=== PATIENT | male | born 1940 | race Caucasian/White ===

== ENCOUNTER → 2016-09-25 | Outpatient (CLI) | payer MEDICARE ==
--- NOTE | 2016-09-25 18:35 | CT ---
EXAMINATION TYPE: CT chest wo con DATE OF EXAM: 09/25/2016 5:55 PM COMPARISON: NONE HISTORY: cough and shortness of breath CT DLP: 261 mGycm Automated exposure control for dose reduction was used. FINDINGS: Multiple axial sections were obtained of the chest in the prone and supine position. There is subpleural interstitial density at the posterior lung bases. This is a mild interstitial inf iltrate. There is no evidence of a pulmonary mass. There is no pleural effusion. Heart size is normal . There is atherosclerotic vascular calcification. There is no pericardial effusion. There is no medi astinal adenopathy. There are no hilar masses. There are a few prominent bronchi at the lung bases. IMPRESSION: SUBPLEURAL INTERSTITIAL TYPE INFILTRATES PREDOMINANTLY AT THE LUNG BASES WITH MINIMAL BRONCHIECTASIS. THIS IS A PATTERN CONSISTENT WITH A MILD FORM OF IDIOPATHIC PULMONARY FIBROSIS. NO EVIDENCE OF ANY S IGNIFICANT PULMONARY EMPHYSEMA. ATHEROSCLEROTIC VASCULAR DISEASE.
--- NOTE | 2016-10-08 22:11 | CONS ---
DATE OF CONSULTATION: The patient is a 76-year-old gentleman who was referred by Dr. Jeremy hernández for diagnostic lung biopsy for interstitial lung disease. The patient has a history of progressive shortness of breath. He had chest x-rays that were abnormal and had a CT scan performed at [facility] on September 25. This demonstrated interstitial type infiltrates subpleural bilaterally or at the lower lobes of the upper lobes. He was admitted with bronchiectasis. No significant emphysematous change or peripheral vascular disease was noted. The patient is referred for possible diagnostic biopsy. Previous medical history includes chronic renal failure for which he is on peritoneal dialysis and includes hypotension for which he is on amiodarone. It includes hypothyroidism, for which he is on Synthroid, includes secondary hyperparathyroidism for which he is on Renvela. The patient also has a history of normal pressure hydrocephalus and has a intracranial shunt. He just recently had this checked and it appears to be working properly. Plan will be to perform an elective diagnostic lung biopsy on the left lung, which the patient will need to be suspended at least one night in the hospital. The indications for the procedure, risks versus benefits, possible complications were outlined. The usual perioperative course was discussed. The patient asked appropriate questions and these were answered to the best of my ability. It was made clear that this is simply a diagnostic procedure and that the procedure itself would not improve his lung disease. It was also made clear that sometimes the diagnosis we obtain does not have any known treatment. Our hope is that we will find a treatable disease. Either way it is important to know what the patient's diagnosis is. The patient understood all of these discussions as I say asked appropriate questions and these were answered to the best of my ability. The patient would like the procedure performed as soon as possible. The plan will be to proceed with the diagnostic lung biopsy, probably sometime next week.
== END | disposition home or self-care (01) ==
LOC: RADCTMAIN 17:20
PROVIDERS: ATTEND Internal Medicine Critical Care Medicine
DX: J47.9 Bronchiectasis, uncomplicated (principal); R91.8 Other nonspecific abnormal finding of lung field
CPT/HCPCS: 71250

== ENCOUNTER → 2016-10-11 | Outpatient (CLI) | payer MEDICARE ==
[2016-10-11 09:31] LABS: Potassium 4.9 mmol/L (3.5-5.1)
[2016-10-11 10:37] LABS: CH 32.8; CHCM 31.1; HCT 33.8 % (39.0-53.0); HGB 10.7 gm/dL (13.0-17.5); Hypochromasia Slight; MCH 33.6 pg (25.0-35.0); MCHC 31.6 g/dL (31.0-37.0); MCV 106.1 fL (80.0-100.0); Macrocytosis Moderate; Mean Platelet Volume 7.3; RBC 3.19 m/uL (4.30-5.90); WBC 10.2 k/uL (3.8-10.6); WBC (Perox) 11.27
[2016-10-11 14:49] LABS: Add Differential Manual Differential
[2016-10-11 14:52] LABS: Manual Review Performed; Nucleated Red Blood Cells 0 /100 WBC (0-0); Total Cells Counted 100
== END | disposition home or self-care (01) ==
LOC: LABPAT 08:45
PROVIDERS: ATTEND Thoracic Surgery (Cardiothoracic Vascular Surgery)
DX: Z01.810 Encounter for preprocedural cardiovascular examination (principal); J84.9 Interstitial pulmonary disease, unspecified
CPT/HCPCS: 80051; 82565; 84520; 85025

== ENCOUNTER 2016-10-15 06:12 | Inpatient (IN) | payer MEDICARE ==
[2016-10-12 14:29] VITALS: BMI 30.7
[~2016-10-15 06:12] MED LIST: FAMOTIDINE 20 MG/2 ML VIAL IV PRN; HYDROmorphone 1 MG/ML 1 ML SYRINGE IVP PRN; LACTATED RINGERS 1,000 ML IV SCH; LIDOCAINE 1% 20 ML VIAL (10MG/ML) FOR IV START INTRADERMA PRN; MIDAZOLAM 2 MG/2 ML VIAL IV PRN; ONDANSETRON 4 MG/2 ML VIAL IVP PRN; Pre Op ABX Message 1 EACH MISC MISCELLANE ONE
[2016-10-15] MEDS ORDERED: SODIUM CHLORIDE 0.9% 1,000 ML IV ONE (07:01)
[2016-10-15 07:08] LABS: CH 33.2; CHCM 31.8; HDW 2.42; HGB 10.6 gm/dL (13.0-17.5); MCH 33.6 pg (25.0-35.0); MCHC 32.1 g/dL (31.0-37.0); MCV 104.8 fL (80.0-100.0); Macrocytosis Moderate; Mean Platelet Volume 7.5; RBC 3.15 m/uL (4.30-5.90); RDW 14.4 % (11.5-15.5); WBC 13.6 k/uL (3.8-10.6)
[2016-10-15 07:23] LABS: Potassium 4.2 mmol/L (3.5-5.1)
[2016-10-15] MEDS ORDERED: LIDOCAINE 1% INJ 10MG/ML (20 ML MDV) ONE (08:00)
[2016-10-15] MEDS ORDERED: MIDAZOLAM 2 MG/2 ML VIAL ONE (08:00)
[2016-10-15] MEDS ORDERED: NEOSTIGMINE 1 MG/ML 10 ML VIAL ONE (08:00)
[2016-10-15] MEDS ORDERED: CISATRACURIUM 2 MG/ML 5 ML VIAL IV ONE (08:00)
[2016-10-15] MEDS ORDERED: GLYCOPYRROLATE 0.2 MG/ML 2 ML VIAL ONE (08:00)
[2016-10-15] MEDS ORDERED: ePHEDrine 50 MG/ML 1 ML AMP ONE (08:00)
[2016-10-15] MEDS ORDERED: HYDROmorphone (PF) 1 MG/ML ONE (08:00)
[2016-10-15] MEDS ORDERED: PROPOFOL 10 MG/ML 20 ML VIAL IV ONE (08:00)
[2016-10-15] MEDS ORDERED: ceFAZolin 1,000 MG VIAL ONE (08:00)
[2016-10-15] MEDS ORDERED: fentaNYL (PF) 50 MCG/ML 2 ML AMP ONE (08:00)
[2016-10-15] MEDS ORDERED: SODIUM CHLORIDE 0.9% 100 ML BAG ONE (08:00)
[2016-10-15] MEDS ORDERED: SODIUM CHLORIDE 0.9% 100 ML with ceFAZolin 2,000 MG IV ONE ×2 (08:25)
[2016-10-15] MEDS ORDERED: BUPIVACAINE (PF) 0.5% 30 ML VIAL SQ ONE ×2 (08:36)
[2016-10-15] MEDS ORDERED: ONDANSETRON 4 MG/2 ML VIAL IVP PRN (09:05)
[2016-10-15] MEDS ORDERED: IPRATROPIUM-ALBUTEROL 3 ML NEB IH PRN (09:05)
--- NOTE | 2016-10-15 09:32 | XR ---
EXAMINATION TYPE: XR chest 1V DATE OF EXAM: 10/15/2016 9:26 AM COMPARISON: NONE HISTORY: 09/25/2016 TECHNIQUE: Single frontal view of the chest is obtained. FINDINGS: Catheter is extending overlying the chest distal tip overlies the lower heart border exact location uncertain. Portion of the catheter extends cephalad. There is a left-sided chest tube with soft tissue emphysema. Bilateral areas of consolidation and sma ll effusion noted. Atherosclerotic change of the aorta noted. IMPRESSION: 1. Bilateral foraminal trainee and small effusion #2 chest tube seen in position with subcutaneous em physema.
--- NOTE | 2016-10-15 10:27 | P.OP ---
Date of Procedure: 10/15/16 Preoperative Diagnosis: Bilateral pulmonary infiltrates, interstitial lung disease Postoperative Diagnosis: Bilateral pulmonary infiltrates, interstitial lung disease Procedure(s) Performed: Thoracoscopic left lung biopsy Anesthesia: JTA Surgeon: Edouard Stewart Estimated Blood Loss (ml): 5 IV fluids (ml): 500 Urine output (ml): 50 Pathology: other (Biopsies of left upper and left lower lobe both sent for pathology and culture including routine acid-fast and fungal cultures) Condition: stable Disposition: PACU Indications for Procedure: Bilateral pulmonary infiltrates, interstitial lung disease Operative Findings: Grossly the pulmonary parenchyma appeared normal with minimal anthracotic pigment Description of Procedure: The patient was brought to the operating room placed supine on the operating table anesthetized and intubated with a double-lumen endotracheal tube. Tube was positioned with fiberoptic bronchoscopy and secured. No endobronchial abnormalities were noted. The patient was turned in the right lateral decubitus position and the left chest sterilely prepped and draped. 3 one-inch incisions were made in the left chest and the video thoracoscope introduced through one. The left lung was deflated and examined. 2 generous wedge biopsies were obtained one of the upper lobe at the level of the fissure and the other of the lower lobe at the level of the diaphragm. Multiple firings of medium Endo ADRIAN stapler were used to create the wedge biopsies. Wedge biopsies were individually placed in an Endo catch bags and brought through the chest wall onto the field. Specimens were divided on the back table and appropriately sent for pathology and culture. Following completion of the biopsy a 28-Persian chest tube was placed through separate stab incision and positioned posterior apically.'s were performed at the level of the incisions with half percent Marcaine. Chest tube was secured with an 0 Ethibond suture. The lung was reexpanded under thoracoscopic visualization and then the thoracoscope were removed. The incisions were closed with layers of Vicryl suture. Steri-Strips and dry sterile dressings were applied. The patient was turned supine and extubated and transferred to recovery room in stable condition.
[2016-10-15] MEDS: DEXTROSE 5%-0.45% NACL 1,000 ML IV SCH ×2 (12:17→20:13)
[2016-10-15] MEDS ORDERED: HYDROcodone/APAP 5-325MG 1 EACH TAB PO PRN (12:26)
[2016-10-15] MEDS: HYDROcodone/APAP 5-325MG 1 EACH TAB PO PRN ×2 (12:47→18:18)
--- NOTE | 2016-10-15 13:06 | P.CNPUL ---
History of Present Illness Consult date: 10/15/16 Reason for consult: other Chief complaint: Difficulty breathing, interstitial lung disease History of present illness: This is a 76-year-old gentleman who I sent to see Dr. Stewart for a VATS biopsy. He came in with me without a diagnosis of difficulty breathing. We discovered interstitial lung disease. He may have pulmonary fibrosis or UIP. Anyway the patient is doing well well postsurgically. I did tell him that he will take a couple days to get the biopsy results. Typically with a due here as a repeat in the next 71-year-old [facility] for final pathologic diagnosis. Anyway the patient is doing well may go home tomorrow. Not on any supplemental oxygen. Complaining of pain only. His daughter and are in the room with him. He does have a history of renal fire for which he gets dialysis 3 times a week and also suffers from hypothyroidism. His ALLERGIES include penicillin and sulfa. His home medications include vitamins Renvela Zofran midodrine level thyroxine and EPOGEN. Review of Systems A 12 point review of system was positive for shortness breath on exertion and dry nonproductive cough. These of the symptoms that initially brought him to me. I he was sent for a VATS lung biopsy which was done today. Past Medical History Past Medical History: Renal Disease Additional Past Medical History / Comment(s): hypotension History of Any Multi-Drug Resistant Organisms: None Reported Past Surgical History: Hernia Repair, Orthopedic Surgery Additional Past Surgical History / Comment(s): vp data shunt. cataract Past Anesthesia/Blood Transfusion Reactions: Previous Problems w/ Anesthesia Additional Past Anesthesia/Blood Transfusion Reaction / Comment(s): states stopped breathing during an arthroscopy yrs. ago but has had surgeries since w/ no problems Past Psychological History: No Psychological Hx Reported Smoking Status: Never smoker Past Alcohol Use History: None Reported Past Drug Use History: None Reported - Past Family History Son(s) Family Medical History: Pulmonary Embolus Medications and Allergies Home Medications Medication Instructions Recorded Confirmed Type Levothyroxine Sodium [Synthroid] 75 mcg PO DAILY 08/06/16 10/15/16 History Midodrine HCl [ProAmatine] 10 mg PO BID 08/06/16 10/15/16 History Sevelamer [Renvela] 2,400 mg PO AC-TID 08/06/16 10/15/16 History Vit B Cplx #11/FA/C/Biot/Zn Ox 1 tab PO DAILY 08/06/16 10/15/16 History [Dialyvite with Zinc Tablet] Epoetin Dl [Epogen] 2,000 unit IJ SA 10/12/16 10/15/16 History Midodrine [ProAmatine] 5 mg PO 1200 10/12/16 10/15/16 History Allergies Allergy/AdvReac Type Severity Reaction Status Date / Time Penicillins Allergy Unknown Verified 10/12/16 11:01 Sulfa (Sulfonamide Allergy Unknown Verified 10/12/16 11:01 Antibiotics) Physical Exam Osteopathic Statement: *. No significant issues noted on an osteopathic structural exam other than those noted in the History and Physical/Consult. Vitals: Vital Signs Temp Pulse Pulse Resp BP BP BP 10/15/16 12:00 97.6 F 81 18 135/65 10/15/16 11:30 82 16 134/70 10/15/16 11:00 84 16 144/78 10/15/16 10:30 79 19 147/74 10/15/16 10:09 75 18 148/70 10/15/16 09:54 91 16 146/72 10/15/16 09:39 75 16 136/68 10/15/16 09:24 88 16 139/69 10/15/16 09:09 98.0 F 84 10 L 112/66 10/15/16 07:27 122/67 120/65 10/15/16 06:27 97.6 F 86 18 168/77 Pulse Ox 10/15/16 12:00 96 10/15/16 11:30 98 10/15/16 11:00 98 10/15/16 10:30 100 10/15/16 10:09 98 10/15/16 09:54 100 10/15/16 09:39 100 10/15/16 09:24 100 10/15/16 09:09 100 10/15/16 07:27 10/15/16 06:27 97 Intake and Output 10/14/16 10/15/16 10/15/16 22:59 06:59 14:59 Intake Total 50 1000 Output Total 20 Balance 50 980 Intake: IV 50 600 Intake, IV Titration 400 Amount Sodium Chloride 0.9% 100 400 ml As IV .STK-MED ONE with ceFAZolin 2,000 mg Rx#:[id number] Output: Estimated Blood Loss 20 Other: Voiding Method Urinal No acute distress, oriented 3. Not requiring any supplemental oxygen. He looks well. HEENT examination is grossly unremarkable. Supple. Full range of motion. Cardiovascular examination reveals regular rhythm rate. S1-S2 normal. Lungs reveal some bibasilar crackles. Abdomen soft. Extremities are intact. Results - Laboratory Findings CBC and BMP: 10/15/16 06:45 10/15/16 06:45 Abnormal lab findings: Abnormal Labs 10/15/16 10/15/16 06:45 06:45 WBC 13.6 H RBC 3.15 L Hgb 10.6 L Hct 33.0 L MCV 104.8 H Carbon Dioxide 19 L - Diagnostic Findings Chest x-ray: image reviewed Assessment and Plan (1) Interstitial lung disease Status: Acute Plan: The patient may go home tomorrow. We'll follow. We'll make sure that we review the path with him when it comes back from [facility]. Additional recommendations suggestions are forthcoming. Time with Patient: Less than 30
[2016-10-15] MEDS: IPRATROPIUM-ALBUTEROL 3 ML NEB IH SCH ×3 (15:59→19:45)
[2016-10-15] MEDS ORDERED: ceFAZolin 2 GM in SODIUM CHLORIDE 0.9% 100 ML IVPB SCH (16:00)
[2016-10-15] MEDS: MIDODRINE 5 MG TAB PO SCH (17:12)
[2016-10-15] MEDS: SEVELAMER 800 MG TAB PO SCH (17:12)
[2016-10-15] MEDS ORDERED: BENZOCAINE/MENTHOL LOZENG 1 EACH LOZENGE MUCOUS MEM PRN (17:58)
[2016-10-15] MEDS: HEPARIN SODIUM,PORCINE 5,000 UNIT/ML 1 ML VIAL SQ SCH (20:09)
[2016-10-15] MEDS: DIALYSIS DEX INTRAPERIT SCH (20:22)
[2016-10-15] MEDS ORDERED: IPRATROPIUM-ALBUTEROL 3 ML NEB INHALATION PRN (20:41)
[2016-10-16] MEDS: DIALYSIS DEX INTRAPERIT SCH ×2 (03:00)
[2016-10-16] MEDS: HYDROcodone/APAP 5-325MG 1 EACH TAB PO PRN (04:49)
[2016-10-16] MEDS: MIDODRINE 5 MG TAB PO SCH (06:21)
[2016-10-16] MEDS ORDERED: LEVOTHYROXINE 75 MCG TAB PO SCH (06:30)
[2016-10-16] MEDS: SEVELAMER 800 MG TAB PO SCH (07:05)
[2016-10-16 07:18] LABS: Basophils % (A) 0 %; CH 33.1; CHCM 31.1; Eosinophils # (A) 0.2 k/uL (0-0.7); Eosinophils % (A) 2 %; HCT 30.3 % (39.0-53.0); HDW 2.46; HGB 9.3 gm/dL (13.0-17.5); Hypochromasia Slight; Luc # (Auto) 0.11; Luc % (Auto) 1; Lymphocytes # (A) 1.3 k/uL (1.0-4.8); Lymphocytes % (A) 13 %; MCHC 30.8 g/dL (31.0-37.0); MCV 107.2 fL (80.0-100.0); Macrocytosis Moderate; Monocytes # (A) 0.8 k/uL (0-1.0); Monocytes % (A) 7 %; Neutrophils # (A) 8.1 k/uL (1.3-7.7); Neutrophils % (A) 77 %; RBC 2.83 m/uL (4.30-5.90); RDW 14.7 % (11.5-15.5); WBC 10.5 k/uL (3.8-10.6); WBC (Perox) 10.04
--- NOTE | 2016-10-16 07:26 | P.PN ---
Subjective Principal diagnosis: Bilateral pulmonary infiltrates, interstitial lung disease. POD #1 thorascopic left lung biopsy. Patient currently sitting up in bed, no apparent distress, states pain is controlled with ordered Narco, at bedside, all questions answered. Objective - Vital Signs Vital signs: Vital Signs Temp 97.4 F L 10/16/16 03:57 Pulse 80 10/16/16 03:57 Resp 20 10/16/16 03:57 BP 120/69 10/16/16 03:57 Pulse Ox 93 L 10/16/16 03:57 Intake & Output 10/15/16 10/16/16 10/16/16 18:59 06:59 18:59 Intake Total 2014 2094 Output Total 110 330 Balance 1905 1765 Weight 91 kg Intake: IV 600 1675 Dextrose 5%-0.45% NaCl 1, 675 000 ml @ 75 mls/hr IV . [id number] LOTUS Rx#:[id number] Sodium Chloride 0.9% 1, 1000 000 ml As IV .STK-MED ONE Rx#:[id number] Intake, IV Titration 1075 Amount Dextrose 5%-0.45% NaCl 1, 675 000 ml @ 75 mls/hr IV . [id number] LOTUS Rx#:[id number] Sodium Chloride 0.9% 100 400 ml As IV .STK-MED ONE with ceFAZolin 2,000 mg Rx#:[id number] Oral 340 420 Output: Chest Tube Drainage 90 130 Left Mid-Axillary Chest 90 130 Urine 200 Estimated Blood Loss 20 Other: Voiding Method Urinal Self-Catheterization # Voids 1 - Constitutional General appearance: Present: cooperative, no acute distress - Respiratory Details: Lungs sounds diminished, respirations even, nonlabored. Remains on room air. Left pleural chest tube with 220 mL serosanguineous output since surgery, chest tube connected to -20 cm wall suction. Able to achieve 1250 mL on his incentive spirometer. - Cardiovascular Details: S1, S2 present. Regular rate and rhythm. Sinus rhythm to sinus bradycardia on telemetry. No peripheral edema present. - Gastrointestinal Gastrointestinal Comment(s): Abdomen soft, nontender, nondistended. Peritoneal dialysis catheter present. Active bowel sounds 4 quadrants. - Genitourinary Genitourinary Comment(s): Patient voids per urinal. - Musculoskeletal Musculoskeletal: Present: gait normal - Psychiatric Psychiatric: Present: A&O x's 3, appropriate affect, intact judgment & insight - Allied health notes Allied health notes reviewed: nursing - Labs CBC & Chem 7: 10/16/16 06:29 10/15/16 06:45 Labs: Abnormal Lab Results - Last 24 Hours (Table) 10/15/16 10/16/16 Range/Units 06:45 06:29 RBC 2.83 L (4.30-5.90) m/uL Hgb 9.3 L (13.0-17.5) gm/dL Hct 30.3 L (39.0-53.0) % MCV 107.2 H (80.0-100.0) fL MCHC 30.8 L (31.0-37.0) g/dL Neutrophils # 8.1 H (1.3-7.7) k/uL Carbon Dioxide 19 L (22-30) mmol/L Microbiology - Last 24 Hours (Table) 10/15/16 08:53 Gram Stain - Preliminary Lung - Left Upper Lobe Tissue Culture - Preliminary 10/15/16 08:53 Gram Stain - Preliminary Lung - Left Lower Lobe Tissue Culture - Preliminary 10/15/16 08:53 Anaerobic Culture - Preliminary Tissue - Left Lower Lobe 10/15/16 08:53 Acid Fast Bacilli Culture - Preliminary Tissue - Left Upper Lobe 10/15/16 08:53 Fungal Culture - Preliminary Tissue - Left Upper Lobe 10/15/16 08:53 Acid Fast Bacilli Culture - Preliminary Lung - Left Lower Lobe 10/15/16 08:53 Fungal Culture - Preliminary Lung - Left Lower Lobe 10/15/16 08:53 Anaerobic Culture - Preliminary Tissue - Left Upper Lobe Assessment and Plan (1) Interstitial lung disease Status: Acute (2) Status post thoracostomy tube placement Status: Acute Plan: 1. Will DC left pleural chest tube. 2. Will obtain chest x-ray post tube removal. 3. Pain control. 4. Will discharge home this afternoon as long as patient is stable. Time with Patient: Greater than 30
[2016-10-16] MEDS ORDERED: LACTULOSE 20 GM/30 ML CUP PO PRN (07:30)
[2016-10-16 07:32] LABS: Calcium 8.5 mg/dL (8.4-10.2); Potassium 4.4 mmol/L (3.5-5.1)
[2016-10-16 08:17] VITALS: BP 120/64; RESP 18; TEMP 97.1
[2016-10-16] MEDS: IPRATROPIUM-ALBUTEROL 3 ML NEB IH SCH (08:37)
[2016-10-16] MEDS: HEPARIN SODIUM,PORCINE 5,000 UNIT/ML 1 ML VIAL SQ SCH (08:38)
[2016-10-16 08:41] VITALS: PULSE 80
--- NOTE | 2016-10-16 08:44 | XR ---
EXAMINATION TYPE: XR chest 1V DATE OF EXAM: 10/16/2016 7:30 AM COMPARISON: Prior chest x-ray 15 October 2016 HISTORY: Postop lung biopsy TECHNIQUE: Single frontal view of the chest is obtained. FINDINGS: Lucency present within the subcutaneous tissues of the left neck, there may be soft tissue swelling. Left-sided catheter courses along the left neck and shows a subclavian course with the dis winter tip coursing towards the right atrium in close proximity to the tricuspid valve level. Left-sided chest tube is in place. There is subcutaneous emphysema over the left chest. No evident pneumothorax or sizable effusion. Lung volume is low on the right. IMPRESSION: Similar findings to prior exam. Central venous catheter as described. Postop changes.
--- NOTE | 2016-10-16 10:19 | XR ---
EXAMINATION TYPE: XR chest 1V DATE OF EXAM: 10/16/2016 9:50 AM COMPARISON: Prior chest x-ray October at earlier time HISTORY: Status post chest tube removal TECHNIQUE: Single frontal view of the chest is obtained. FINDINGS: There has been interval removal of the left-sided chest tube. No sizable pneumothorax. No other significant interval change. IMPRESSION: Interval chest tube removal.
[2016-10-16] MEDS ORDERED: MIDODRINE 5 MG TAB PO SCH (12:00)
[2016-10-16] MEDS ORDERED: DIALYSIS DEX INTRAPERIT SCH (21:00)
--- NOTE | 2016-10-17 08:35 | P.DS ---
Providers Date of admission: 10/15/16 06:12 Attending physician: Edouard Stewart Consults: 10/15/16 11:06 Consult Physician Routine Consulting Provider: Partha Luna Reason/Comments: post lung biopsy, known to you Do you want consulting provider notified?: Already Contacted 10/15/16 11:08 Consult Physician Routine Consulting Provider: Tez Robison Consult Reason/Comments: chronic kidney disease on PD Do you want consulting provider notified?: Yes Primary care physician: Francois Ayers Yaneth - Discharge Diagnosis(es) (1) Interstitial lung disease Status: Acute (2) Status post thoracostomy tube placement Status: Acute Hospital Course: FINAL DIAGNOSIS: 1.[Interstitial lung disease] 2.[Chronic renal failure receiving peritoneal dialysis] 3.[Hypotension] 4.[Hypothyroidism] 5.[Secondary hyperparathyroidism] 6.[Normal pressure hydrocephalus, status post intracranial shunt] PRINCIPAL PROCEDURE: 1.[Thoracoscopic left lung biopsy] HISTORY OF PRESENT ILLNESS: [This 76-year-old gentleman was referred by Dr. Luna for diagnostic lung biopsy for interstitial lung disease. She had had a peak history of progressive shortness of breath. He had abnormal chest x-rays, subsequently had a CAT scan performed in September which demonstrated interstitial type infiltrates subpleural bilaterally. The indications for the procedure, risks versus benefits and possible complications were explained in detail to the patient and his . They verbalized understanding and consented to proceed with surgery.] HOSPITAL COURSE:[The patient was brought in as an outpatient and brought to the preop area. He was then brought into the operating room, prepped appropriately , intubated, and wedge biopsies were obtained using a thorascopic approach. A 28-[place]ican chest tube was placed and secured. Following the procedure he was extubated, taken to the postanesthesia recovery unit, recovered appropriately, and transferred to [address] [place] [address] for follow-up postop care. On POD #1 the patient's chest tube was removed, follow-up chest x-ray was obtained, which demonstrated no pneumothorax. The patient was discharged home with his .] COMPLICATIONS: [None] CONSULTATIONS: 1.[Dr. Luna for pulmonology] 2.[Dr. Robison for nephrology] DISCHARGE INSTRUCTIONS: 1. No lifting, pushing, or pulling more than 10 pounds for 4 weeks. The physician will advise of any restriction changes. 2. Continue pain control per as needed orders. 3. Continue with incentive spirometry until otherwise directed by the physician. 4. Must shower daily starting Oct 18 using liquid antibacterial soap. 5. Please remove chest dressing on [Oct 18 after 9:30 AM] with routine incision care thereafter. Patient Condition at Discharge: Stable Plan - Discharge Summary New Discharge Prescriptions: HYDROcodone/APAP 5-325MG [[place] 5-325] 1 - 2 tab PO Q4HR PRN #30 tab PRN Reason: Moderate Pain Discharge Medication List Levothyroxine Sodium [Synthroid] 75 mcg PO DAILY 08/06/16 [History] Midodrine HCl [ProAmatine] 10 mg PO BID 08/06/16 [History] Ondansetron Odt [Zofran ODT] 4 mg PO Q8HR PRN #10 tab 08/06/16 [Rx] Sevelamer [Renvela] 2,400 mg PO AC-TID 08/06/16 [History] Vit B Cplx #11/FA/C/Biot/Zn Ox [Dialyvite with Zinc Tablet] 1 tab PO DAILY 08/06 [History] Epoetin Dl [Epogen] 2,000 unit IJ SA 10/12/16 [History] Midodrine [ProAmatine] 5 mg PO 1200 10/12/16 [History] HYDROcodone/APAP 5-325MG [[place] 5-325] 1 - 2 tab PO Q4HR PRN #30 tab 10/16/16 [ Rx] Lactulose [Cephulac] 20 gm PO DAILY PRN #0 ml 10/16/16 [Rx] Follow up Appointment(s)/Referral(s): Edouard Stewart MD [STAFF PHYSICIAN] - 10/29/16 2:00 pm Linda Flood DO [Doctor of Osteopathic Medicine] - As Needed Partha Luna DO [Doctor of Osteopathic Medicine] - 10/30/16 1:00 pm Activity/Diet/Wound Care/Special Instructions: 1. No lifting, pushing, or pulling more than 10 pounds for 4 weeks. The physician will advise of any restriction changes. 2. Continue pain control per as needed orders. 3. Continue with incentive spirometry until otherwise directed by the physician. 4. Must shower daily starting Feb 16 using liquid antibacterial soap. 5. Please remove chest dressing on [Oct 18 after 9:30 AM] with routine incision care thereafter. Discharge Disposition: HOME SELF-CARE
== END 2016-10-16 11:31 | disposition home or self-care (01) | DRG 167 ==
LOC: 2ORMAIN 06:12 → 6SEL 11:17
PROVIDERS: ADMIT Thoracic Surgery (Cardiothoracic Vascular Surgery); ATTEND Thoracic Surgery (Cardiothoracic Vascular Surgery)
PROC: 0W9B40Z Drainage of Left Pleural Cavity with Drainage Device, Percutaneous Endoscopic Approach (ICD-10-PCS; 2016-10-15)
PROC: 0BB84ZX Excision of Left Upper Lobe Bronchus, Percutaneous Endoscopic Approach, Diagnostic (ICD-10-PCS; 2016-10-15)
PROC: 0BBJ4ZX Excision of Left Lower Lung Lobe, Percutaneous Endoscopic Approach, Diagnostic (ICD-10-PCS; principal; 2016-10-15 08:00)
DX: J84.9 Interstitial pulmonary disease, unspecified (principal); G91.2 (Idiopathic) normal pressure hydrocephalus; I95.9 Hypotension, unspecified; N25.81 Secondary hyperparathyroidism of renal origin; E03.9 Hypothyroidism, unspecified; I25.10 Atherosclerotic heart disease of native coronary artery without angina pectoris; Z98.2 Presence of cerebrospinal fluid drainage device; Z98.49 Cataract extraction status, unspecified eye; N18.9 Chronic kidney disease, unspecified; Z88.0 Allergy status to penicillin; Z88.2 Allergy status to sulfonamides; Z99.2 Dependence on renal dialysis; Z79.899 Other long term (current) drug therapy
CPT/HCPCS: 71010; 80048; 80051; 81001; 85025; 85027; 87070; 87075; 87102; 87116; 87205; 87206; 88307; 94640

== ENCOUNTER 2016-10-20 16:54 | Inpatient (IN) | payer MEDICARE ==
[2016-10-20 17:29] LABS: Basophils % (A) 0 %; CH 34.1; CHCM 32.4; Eosinophils # (A) 0.1 k/uL (0-0.7); Eosinophils % (A) 1 %; HCT 33.2 % (39.0-53.0); HDW 2.52; HGB 10.4 gm/dL (13.0-17.5); Luc # (Auto) 0.38; Luc % (Auto) 2; Lymphocytes # (A) 0.7 k/uL (1.0-4.8); Lymphocytes % (A) 4 %; MCHC 31.2 g/dL (31.0-37.0); MCV 105.9 fL (80.0-100.0); Macrocytosis Moderate; Mean Platelet Volume 7.9; Monocytes # (A) 1.8 k/uL (0-1.0); Monocytes % (A) 9 %; Neutrophils # (A) 16.1 k/uL (1.3-7.7); Neutrophils % (A) 84 %; RBC 3.14 m/uL (4.30-5.90); RDW 14.3 % (11.5-15.5); WBC (Perox) 19.79
--- NOTE | 2016-10-20 17:34 | ED ---
Weakness HPI - General Chief complaint: Weakness Stated complaint: weakness Time Seen by Provider: 10/20/16 17:16 Source: patient Mode of arrival: EMS Limitations: altered mental status (There appears to be some delirium) - History of Present Illness Initial comments: This patient is 76-year-old man who presents after he developed generalized weakness and then was unable to stand or ambulate at his home. Patient had been in the hospital last week to have a lung biopsy to determine the etiology of what appeared to be interstitial lung disease. The patient states that he was feeling about his usual self when he was discharged on Saturday. Over the following day he noticed that he was having the onset of some fatigue and weakness. This Progressively worse until tonight he was not able to stand or walk at home. The patient also noted that he was feeling hot and cold over the past day. He has also had a number of watery bowel movements starting this afternoon. MD Complaint: generalized weakness, lack of energy -: days(s) Location: generalized Severity: severe Consistency: constant Improves with: none Worsens with: none Context: recent surgery Associated Symptoms: fever/chills, other (Diarrhea) - Related Data Home Medications Medication Instructions Recorded Confirmed Levothyroxine Sodium [Synthroid] 75 mcg PO DAILY 08/06/16 10/20/16 Midodrine HCl [ProAmatine] 10 mg PO BID 08/06/16 10/20/16 Sevelamer [Renvela] 2,400 mg PO AC-TID 08/06/16 10/20/16 Vit B Cplx #11/FA/C/Biot/Zn Ox 1 tab PO DAILY 08/06/16 10/20/16 [Dialyvite with Zinc Tablet] Epoetin Dl [Epogen] 2,000 unit IM SA 10/12/16 10/20/16 Midodrine [ProAmatine] 5 mg PO DAILY@1200 10/12/16 10/20/16 HYDROcodone/APAP 5-325MG [[place] 1 tab PO Q4HR PRN 10/20/16 10/20/16 5-325] Previous Rx's Medication Instructions Recorded Ondansetron Odt [Zofran ODT] 4 mg PO Q8HR PRN #10 tab 08/06/16 Lactulose [Cephulac] 20 gm PO DAILY PRN #0 ml 10/16/16 Allergies Allergy/AdvReac Type Severity Reaction Status Date / Time Penicillins Allergy Rash/Hives Verified 10/20/16 17:43 Sulfa (Sulfonamide Allergy Rash/Hives Verified 10/20/16 17:43 Antibiotics) Review of Systems ROS Statement: Those systems with pertinent positive or pertinent negative responses have been documented in the HPI. ROS Other: All systems not noted in ROS Statement are negative. Limitations: ROS unobtainable due to patients medical condition (Patient appears to be mildly delirious) Constitutional: Reports: fever, chills ENT: Reports: throat pain Respiratory: Reports: cough, dyspnea. Denies: wheezes, hemoptysis, stridor Cardiovascular: Reports: dyspnea on exertion. Denies: chest pain, edema, syncope Gastrointestinal: Denies: abdominal pain, nausea, vomiting Genitourinary: Denies: dysuria, hematuria Musculoskeletal: Denies: back pain Skin: Denies: rash Neurological: Denies: headache, weakness, numbness Past Medical History Past Medical History: Renal Disease Additional Past Medical History / Comment(s): hypotension, pulmonary fibrosis History of Any Multi-Drug Resistant Organisms: None Reported Past Surgical History: Hernia Repair, Orthopedic Surgery Additional Past Surgical History / Comment(s): vp revenue cycle shunt. cataract Past Anesthesia/Blood Transfusion Reactions: Previous Problems w/ Anesthesia Additional Past Anesthesia/Blood Transfusion Reaction / Comment(s): states stopped breathing during an arthroscopy yrs. ago but has had surgeries since w/ no problems Past Psychological History: No Psychological Hx Reported Smoking Status: Never smoker Past Alcohol Use History: None Reported Past Drug Use History: None Reported - Past Family History Son(s) Family Medical History: Pulmonary Embolus General Exam Limitations: no limitations General appearance: alert, in distress (Patient does appear to be mildly tachypneic at my exam) Head exam: Present: atraumatic, normocephalic Eye exam: Present: normal appearance. Absent: scleral icterus, conjunctival injection ENT exam: Present: mucous membranes dry Neck exam: Present: normal inspection Respiratory exam: Present: rales. Absent: respiratory distress, wheezes, rhonchi, stridor, decreased breath sounds Cardiovascular Exam: Present: tachycardia, normal heart sounds. Absent: regular rate, normal rhythm, bradycardia, systolic murmur, diastolic murmur, rubs, gallop GI/Abdominal exam: Present: soft, normal bowel sounds, other (There is a peritoneal dialysis catheter present in the left lower quadrant. No erythema or warmth. No tenderness. No signs of peritonitis.). Absent: distended, tenderness, guarding, rebound, mass, pulsatile mass, hernia Extremities exam: Present: normal inspection, normal capillary refill. Absent: pedal edema, calf tenderness Back exam: Present: normal inspection. Absent: CVA tenderness (R), CVA tenderness (L) Neurological exam: Present: alert Skin exam: Present: warm, dry, intact, normal color. Absent: rash Course Vital Signs 10/20/16 10/20/16 10/20/16 16:55 17:55 19:22 Temperature 102.1 F H 100.0 F H Pulse Rate 111 H 97 Respiratory 20 16 16 Rate Blood Pressure 111/59 85/50 O2 Sat by Pulse 92 L 95 Oximetry Medical Decision Making - Medical Decision Making This patient is a 76-year-old man who presents with fever of the workup is positive for influenza. The patient will be covered with Tamiflu. The lactic acid is elevated and he received fluid bolus and will have repeat lactic acid performed. Case discussed with Dr. Palomo who is admitting for Dr. Wolfe. Case discussed with Dr. Luna, who also follows the patient for his interstitial lung disease. Given the possibility of sepsis the patient is currently with additional antibiotics to rule out other source, pending his blood, urine, and dialysis fluid cultures. - Lab Data Result diagrams: 10/20/16 17:15 10/20/16 17:15 Lab Results 10/20/16 10/20/16 10/20/16 Range/Units 16:10 17:15 17:15 WBC 19.0 H (3.8-10.6) k/uL RBC 3.14 L (4.30-5.90) m/uL Hgb 10.4 L (13.0-17.5) gm/dL Hct 33.2 L (39.0-53.0) % MCV 105.9 H (80.0-100.0) fL MCH 33.0 (25.0-35.0) pg MCHC 31.2 (31.0-37.0) g/dL RDW 14.3 (11.5-15.5) % Plt Count 443 (150-450) k/uL Neutrophils % 84 % Lymphocytes % 4 % Monocytes % 9 % Eosinophils % 1 % Basophils % 0 % Neutrophils # 16.1 H (1.3-7.7) k/uL Lymphocytes # 0.7 L (1.0-4.8) k/uL Monocytes # 1.8 H (0-1.0) k/uL Eosinophils # 0.1 (0-0.7) k/uL Basophils # 0.0 (0-0.2) k/uL Macrocytosis Moderate PT 11.6 (9.0-12.0) sec INR 1.2 (<1.1) APTT 21.4 L (22.0-30.0) sec Sodium (137-145) mmol/L Potassium (3.5-5.1) mmol/L Chloride (98-107) mmol/L Carbon Dioxide (22-30) mmol/L Anion Gap mmol/L BUN (9-20) mg/dL Creatinine (0.66-1.25) mg/dL Est GFR (MDRD) Af Amer (>60 ml/min/1.73 sqM) Est GFR (MDRD) Non-Af (>60 ml/min/1.73 sqM) Glucose (74-99) mg/dL Plasma Lactic Acid Edilberto (0.7-2.0) mmol/L Calcium (8.4-10.2) mg/dL Total Bilirubin (0.2-1.3) mg/dL AST (17-59) U/L ALT (21-72) U/L Alkaline Phosphatase (38-126) U/L Total Creatine Kinase 40 L (55-170) U/L CK-MB (CK-2) 0.5 (0.0-2.4) ng/mL CK-MB (CK-2) Rel Index 1.3 Troponin I 0.019 (0.000-0.034) ng/mL Total Protein (6.3-8.2) g/dL Albumin (3.5-5.0) g/dL Cortisol ug/dL Influenza Type A RNA (Not Detectd) Influenza Type B (PCR) (Not Detectd) 10/20/16 10/20/16 10/20/16 Range/Units 17:15 17:15 18:00 WBC (3.8-10.6) k/uL RBC (4.30-5.90) m/uL Hgb (13.0-17.5) gm/dL Hct (39.0-53.0) % MCV (80.0-100.0) fL MCH (25.0-35.0) pg MCHC (31.0-37.0) g/dL RDW (11.5-15.5) % Plt Count (150-450) k/uL Neutrophils % % Lymphocytes % % Monocytes % % Eosinophils % % Basophils % % Neutrophils # (1.3-7.7) k/uL Lymphocytes # (1.0-4.8) k/uL Monocytes # (0-1.0) k/uL Eosinophils # (0-0.7) k/uL Basophils # (0-0.2) k/uL Macrocytosis PT (9.0-12.0) sec INR (<1.1) APTT (22.0-30.0) sec Sodium 142 (137-145) mmol/L Potassium 4.2 (3.5-5.1) mmol/L Chloride 104 (98-107) mmol/L Carbon Dioxide 18 L (22-30) mmol/L Anion Gap 20 mmol/L BUN 42 H (9-20) mg/dL Creatinine 8.46 H* (0.66-1.25) mg/dL Est GFR (MDRD) Af Amer 7 (>60 ml/min/1.73 sqM) Est GFR (MDRD) Non-Af 6 (>60 ml/min/1.73 sqM) Glucose 139 H (74-99) mg/dL Plasma Lactic Acid Edilberto 4.5 H* (0.7-2.0) mmol/L Calcium 8.1 L (8.4-10.2) mg/dL Total Bilirubin 0.3 (0.2-1.3) mg/dL AST 38 (17-59) U/L ALT 22 (21-72) U/L Alkaline Phosphatase 133 H (38-126) U/L Total Creatine Kinase (55-170) U/L CK-MB (CK-2) (0.0-2.4) ng/mL CK-MB (CK-2) Rel Index Troponin I (0.000-0.034) ng/mL Total Protein 5.5 L (6.3-8.2) g/dL Albumin 2.7 L (3.5-5.0) g/dL Cortisol 54 ug/dL Influenza Type A RNA Not Detected (Not Detectd) Influenza Type B (PCR) Detected A (Not Detectd) Disposition Clinical Impression: Fever, Influenza, Sepsis, Interstitial lung disease, Chronic renal failure Disposition: ADMITTED IP TO THIS HOSP Condition: Serious
[2016-10-20 17:39] LABS: Calcium 8.1 mg/dL (8.4-10.2); Potassium 4.2 mmol/L (3.5-5.1); Total Bilirubin 0.3 mg/dL (0.2-1.3); Total Protein 5.5 g/dL (6.3-8.2)
[2016-10-20 18:06] LABS: Creatine Kinase MB 0.5 ng/mL (0.0-2.4); Troponin I 0.019 ng/mL (0.000-0.034)
--- NOTE | 2016-10-20 18:17 | XR ---
EXAMINATION TYPE: XR chest 1V portable DATE OF EXAM: 10/20/2016 5:39 PM COMPARISON: Prior chest x-ray October HISTORY: Fever, abnormal chest x-ray TECHNIQUE: Single frontal view of the chest is obtained. FINDINGS: There is no focal air space opacity, pleural effusion, or pneumothorax seen. The cardiac silhouette size is within normal limits. Left-sided central venous catheter stable. Lucency over the left upper chest and left side has largely resolved. The osseous structures are intact. IMPRESSION: No significant interval changes.
[2016-10-20] MEDS ORDERED: IV VANCOMYCIN PER PHARMACY 1 EACH MISC MISCELLANE PRN (18:23)
[2016-10-20] MEDS ORDERED: VANCOMYCIN 1,750 MG in SODIUM CHLORIDE 0.9% 250 ML IVPB ONE (18:45)
[2016-10-20 18:48] LABS: INR 1.2 (<1.1); Prothrombin Time 11.6 sec (9.0-12.0)
[2016-10-20 18:55] LABS: Partial Thromboplastin Time 21.4 sec (22.0-30.0)
[2016-10-20] MEDS ORDERED: ONDANSETRON ODT 4 MG TAB PO PRN (18:57)
[2016-10-20] MEDS ORDERED: LACTULOSE 20 GM/30 ML CUP PO PRN (18:57)
[2016-10-20] MEDS ORDERED: HYDROcodone/APAP 5-325MG 1 EACH TAB PO PRN (18:57)
[2016-10-20] MEDS: SODIUM CHLORIDE 0.9% 500 ML IV SCH ×3 (19:14→19:54)
[2016-10-20] MEDS ORDERED: DARBEPOETIN ALFA 25 MCG/0.42 ML SYRINGE SQ SCH (20:00)
[2016-10-20 20:09] LABS: Glucose,Whole Blood 143 mg/dL (75-99)
[2016-10-20 21:22] VITALS: BMI 32.8
[2016-10-20 21:42] LABS: Appearance,Urine Clear (Clear); Bilirubin,Urine Negative (Negative); Glucose,Urine (UA) 3+ (Negative); Ketones,Urine Negative (Negative); Leukocyte Esterase,Urine Negative (Negative); Nitrite,Urine Negative (Negative); PH, Urine 7.5 (5.0-8.0); Particle Count 3240; Protein,Urine 2+ (Negative); Squamous Epithelial Cell,Urine 2 /hpf (0-4); UA Billing (MACRO vs. MICRO) MICRO; Urobilinogen,Urine <2.0 mg/dL (<2.0); WBC,Urine <1 /hpf (0-5)
[2016-10-20] MEDS: OSELTAMIVIR 60 MG/10 ML ORAL SYRINGE PO SCH (21:54)
[2016-10-20] MEDS ORDERED: ACETAMINOPHEN TAB 325 MG TAB PO PRN (22:26)
[2016-10-20] MEDS ORDERED: NALOXONE 0.4 MG/ML 1 ML VIAL IV PRN (22:26)
[2016-10-21] MEDS: VANCOMYCIN ORAL SOLUTION 250 MG/5 ML BOTTLE PO SCH ×4 (00:07→17:05)
[2016-10-21] MEDS: CHERRY FLAVOR 60 ML BOTTLE PO SCH ×4 (00:07→17:05)
[2016-10-21] MEDS: SODIUM CHLORIDE 0.9% 1,000 ML IV SCH ×2 (00:07→13:12)
[2016-10-21 00:34] LABS: Creatine Kinase MB 0.8 ng/mL (0.0-2.4)
[2016-10-21 00:37] LABS: Troponin I 0.064 ng/mL (0.000-0.034)
[2016-10-21 05:16] LABS: Basophils % (A) 0 %; CH 32.6; CHCM 30.4; Eosinophils # (A) 0.1 k/uL (0-0.7); Eosinophils % (A) 1 %; HCT 28.4 % (39.0-53.0); HDW 2.51; Hypochromasia Moderate; Luc # (Auto) 0.39; Luc % (Auto) 2; Lymphocytes # (A) 1.5 k/uL (1.0-4.8); Lymphocytes % (A) 9 %; MCH 33.5 pg (25.0-35.0); MCHC 31.1 g/dL (31.0-37.0); MCV 107.7 fL (80.0-100.0); Macrocytosis Moderate; Mean Platelet Volume 6.9; Monocytes # (A) 1.1 k/uL (0-1.0); Monocytes % (A) 6 %; Neutrophils # (A) 13.9 k/uL (1.3-7.7); Neutrophils % (A) 82 %; RBC 2.64 m/uL (4.30-5.90); RDW 14.1 % (11.5-15.5); WBC (Perox) 18.65
[2016-10-21 05:26] LABS: HGB 8.8 gm/dL (13.0-17.5)
[2016-10-21 05:27] LABS: Calcium 7.3 mg/dL (8.4-10.2); Magnesium 1.9 mg/dL (1.6-2.3); Phosphorous 6.7 mg/dL (2.5-4.5); Potassium 3.8 mmol/L (3.5-5.1)
[2016-10-21] MEDS: LEVOTHYROXINE 75 MCG TAB PO SCH (05:34)
[2016-10-21] MEDS ORDERED: Potassium Replacement Protocol 1 EACH MISC MISCELLANE PRN (05:50)
[2016-10-21] MEDS ORDERED: Magnesium Replacement Protocol 1 EACH MISC MISCELLANE PRN (05:51)
[2016-10-21 05:54] LABS: Troponin I 0.1 ng/mL (0.000-0.034)
[2016-10-21] MEDS: POTASSIUM CHLORIDE 10 MEQ, LIDOCAINE 2% INJ 10 MG in SODIUM CHLORIDE 0.9% 100 ML IV SCH ×2 (06:41→08:55)
[2016-10-21] MEDS: MAGNESIUM SULFATE-D5W PMX 1 GM in DEXTROSE/WATER 1 100ML.BAG IVPB SCH ×2 (06:41→08:57)
[2016-10-21] MEDS: SEVELAMER 800 MG TAB PO SCH ×3 (09:08→17:05)
[2016-10-21] MEDS: PANTOPRAZOLE 40 MG TABLET PO SCH (09:08)
[2016-10-21] MEDS: MIDODRINE 5 MG TAB PO SCH ×3 (09:09→17:07)
[2016-10-21] MEDS: HEPARIN SODIUM,PORCINE 5,000 UNIT/ML 1 ML VIAL IV SCH ×2 (09:09→18:06)
[2016-10-21] MEDS: B COMPLEX-VIT C-VIT E-ZINC 1 EACH TAB PO SCH (09:10)
[2016-10-21] MEDS: ZINC GLUCONATE 50 MG TAB PO SCH (09:10)
--- NOTE | 2016-10-21 09:21 | P.NPCON ---
History of Present Illness - Reason for Consult Consult date: 10/21/16 end stage renal disease - Chief Complaint ESRD on CAPD admitted with diarrhea - History of Present Illness This is 76-year-old male known to us with ESRD, he is on cycler peritoneal dialysis, for about 2yrs. He was admitted with diarrhea for 24 hours prior to admission and feeling fatigued and tired and somewhat confused. Stool is positive for C. diff. He denies any bloody stools, nausea vomiting fever chills. He also has a diagnosis of influenza pneumonia although his symptoms are rather unchanged she has chronic cough for several years and had the pulmonary fibrosis diagnosed based on the recent lung biopsy. He says his cough is not any different. Past Medical History Past Medical History: Renal Disease Additional Past Medical History / Comment(s): hypotension, pulmonary fibrosis History of Any Multi-Drug Resistant Organisms: None Reported Past Surgical History: Hernia Repair, Orthopedic Surgery Additional Past Surgical History / Comment(s): vp patient shunt. cataract Past Anesthesia/Blood Transfusion Reactions: Previous Problems w/ Anesthesia Additional Past Anesthesia/Blood Transfusion Reaction / Comment(s): states stopped breathing during an arthroscopy yrs. ago but has had surgeries since w/ no problems Past Psychological History: No Psychological Hx Reported Smoking Status: Never smoker Past Alcohol Use History: None Reported Past Drug Use History: None Reported - Past Family History Son(s) Family Medical History: Pulmonary Embolus Medications and Allergies Home Medications Medication Instructions Recorded Confirmed Type Levothyroxine Sodium [Synthroid] 75 mcg PO DAILY 08/06/16 10/20/16 History Midodrine HCl [ProAmatine] 10 mg PO BID 08/06/16 10/20/16 History Sevelamer [Renvela] 2,400 mg PO AC-TID 08/06/16 10/20/16 History Vit B Cplx #11/FA/C/Biot/Zn Ox 1 tab PO DAILY 08/06/16 10/20/16 History [Dialyvite with Zinc Tablet] Epoetin Dl [Epogen] 2,000 unit IM SA 10/12/16 10/20/16 History Midodrine [ProAmatine] 5 mg PO DAILY@1200 10/12/16 10/20/16 History HYDROcodone/APAP 5-325MG [[place] 1 tab PO Q4HR PRN 10/20/16 10/20/16 History 5-325] Allergies Allergy/AdvReac Type Severity Reaction Status Date / Time Penicillins Allergy Rash/Hives Verified 10/20/16 17:43 Sulfa (Sulfonamide Allergy Rash/Hives Verified 10/20/16 17:43 Antibiotics) Physical Exam Vitals: Vital Signs Temp Pulse Resp BP Pulse Ox 10/21/16 07:59 99 10/21/16 07:00 75 10 L 89/53 99 10/21/16 06:00 77 14 83/54 98 10/21/16 05:30 75 16 106/54 98 10/21/16 05:00 77 18 106/54 91 L 10/21/16 04:30 79 16 87/51 98 10/21/16 04:00 97.9 F 90 15 87/51 98 10/21/16 03:30 78 15 97/56 97 10/21/16 03:00 75 17 97/56 96 10/21/16 02:30 81 16 83/49 10/21/16 02:00 82 16 83/49 91 L 10/21/16 01:00 85 16 82/47 94 L 10/21/16 00:30 87 18 95/53 96 10/21/16 00:00 100 F H 87 17 117/63 98 10/20/16 23:00 87 14 114/54 100 10/20/16 22:00 91 17 107/56 99 10/20/16 21:30 94 22 127/82 98 10/20/16 21:20 93 19 104/55 99 10/20/16 21:10 92 32 H 104/55 99 10/20/16 21:00 89 15 104/55 98 10/20/16 20:50 145 H 23 106/69 96 10/20/16 20:45 17 10/20/16 20:40 163 H 22 106/69 94 L 10/20/16 20:30 98.8 F 141 H 15 106/69 88 L 10/20/16 20:20 90 20 106/69 97 10/20/16 20:12 88 10/20/16 19:22 100.0 F H 97 16 85/50 95 Intake and Output 10/20/16 10/21/16 10/21/16 22:59 06:59 14:59 Intake Total 2725 675 Output Total 152 211 Balance 5003 464 Intake: IV 2725 675 Sodium Chloride 0.9% 1, 675 000 ml @ 75 mls/hr IV . [id number] [facility] Rx#:[id number] Sodium Chloride 0.9% 500 2575 ml @ 1000 mls/hr IV Q35M [facility] Rx#:[id number] Vancomycin 1,750 mg In 150 Sodium Chloride 0.9% 250 ml @ 125 mls/hr IVPB ONCE ONE Rx#:[id number] Output: Urine 152 211 Other: Voiding Method Indwelling Catheter Indwelling Catheter Weight 98 kg 91.4 kg On examination is awake alert oriented. HEENT exam no JVP neck is supple no facial asymmetry Pupils are equal and reactive Lungs are clear to auscultation fair air entry bilaterally no dullness percussion. Heart sounds are unremarkable for any murmur rub gallop. Abdomen soft nontender PD catheter is coming out but the length of the catheter is rather small but this is how it was placed originally. Extremity exam was no edema Warm to touch Neurologically awake alert oriented no asterixis. Results - Lab Results Most recent lab results Calcium 7.3 mg/dL (8.4-10.2) L 10/21/16 04:56 Phosphorus 6.7 mg/dL (2.5-4.5) H 10/21/16 04:56 Magnesium 1.9 mg/dL (1.6-2.3) 10/21/16 04:56 10/21/16 04:56 10/21/16 04:56 Assessment and Plan Plan: Impression. 1. ESRD on cycler peritoneal dialysis for about 2 years using 5 exchanges of 1.5%, cycle volume unclear patient is unable to recall and the was unable to tell us. We will his seems 2500 mL. 2. Admitted with C. diff colitis, PCR is pending but EIA is positive. 3. Recent admission 10/15/2016 for lung biopsy which shows usual interstitial pneumonitis. Patient has chronic cough for several years 4. Influenza 5. 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 6. Mild degree of non-gap acidosis with a gap of 13 and a bicarb of 19 secondary to his CK D 7. Hyperphosphatemia, phosphorus is 6.7 on Renvela at home 3 tablets 3 times a day 8. Mild hypocalcemia calcium is 7.3 and albumin is not available. Recommendation. 1. Antibiotics for the C. diff as being given, vancomycin by mouth 2. Check iron saturation, 3. Aranesp 40 Micg SQ a week 4. Renvela 3 3 times a day with dietary restriction of 1 g phosphorus 5. Maintain with CAPD 2500 mL 4 exchanges 1.5%. 6. DC White catheter
[2016-10-21] MEDS ORDERED: DARBEPOETIN ALFA 40 MCG/0.4 ML SYRINGE SQ SCH (09:30)
[2016-10-21 10:02] LABS: % Iron Saturation 6.7 % (20-50)
--- NOTE | 2016-10-21 11:11 | P.CNPUL ---
History of Present Illness Consult date: 10/21/16 Chief complaint: Diarrhea, delirium, and weakness. History of present illness: This is a 76-year-old male who just recently underwent a VATS lung biopsy by Dr. Stewart for interstitial lung disease. The results are not yet back. The patient was apparently seen in the emergency room with complaints of weakness. Seen there by one of the ER physicians. The patient apparently came into the hospital with complaints of diarrhea weakness fever and delirium. The family states he was basically unable to walk and just are very much out of it. It sounds like this could be dehydration with delirium and/or sepsis. Apparently also he tested positive for influenza although have not seen those results as yet. He is feeling much better now. When I talked to the ER doctor yesterday, I thought the patient could be safely managed on the floor. For some reason the patient ended up in the ICU. I'm not been able to figure out why. Again currently is doing very well. He is getting appointment 9 IV at 75 mL an hour. He's got not getting any supplemental oxygen. Review of Systems A 12 point review of system is positive for fever and delirium diarrhea and weakness. Most of those complaints have improved. The patient feels much better now. The rest of the 12 point review of system is negative. Past Medical History Past Medical History: Renal Disease Additional Past Medical History / Comment(s): hypotension, pulmonary fibrosis History of Any Multi-Drug Resistant Organisms: None Reported Past Surgical History: Hernia Repair, Orthopedic Surgery Additional Past Surgical History / Comment(s): vp product management shunt. cataract Past Anesthesia/Blood Transfusion Reactions: Previous Problems w/ Anesthesia Additional Past Anesthesia/Blood Transfusion Reaction / Comment(s): states stopped breathing during an arthroscopy yrs. ago but has had surgeries since w/ no problems Past Psychological History: No Psychological Hx Reported Smoking Status: Never smoker Past Alcohol Use History: None Reported Past Drug Use History: None Reported - Past Family History Son(s) Family Medical History: Pulmonary Embolus Medications and Allergies Home Medications Medication Instructions Recorded Confirmed Type Levothyroxine Sodium [Synthroid] 75 mcg PO DAILY 08/06/16 10/20/16 History Midodrine HCl [ProAmatine] 10 mg PO BID 08/06/16 10/20/16 History Sevelamer [Renvela] 2,400 mg PO AC-TID 08/06/16 10/20/16 History Vit B Cplx #11/FA/C/Biot/Zn Ox 1 tab PO DAILY 08/06/16 10/20/16 History [Dialyvite with Zinc Tablet] Epoetin Dl [Epogen] 2,000 unit IM SA 10/12/16 10/20/16 History Midodrine [ProAmatine] 5 mg PO DAILY@1200 10/12/16 10/20/16 History HYDROcodone/APAP 5-325MG [[place] 1 tab PO Q4HR PRN 10/20/16 10/20/16 History 5-325] Allergies Allergy/AdvReac Type Severity Reaction Status Date / Time Penicillins Allergy Rash/Hives Verified 10/20/16 17:43 Sulfa (Sulfonamide Allergy Rash/Hives Verified 10/20/16 17:43 Antibiotics) Physical Exam Osteopathic Statement: *. No significant issues noted on an osteopathic structural exam other than those noted in the History and Physical/Consult. Vitals: Vital Signs Temp Pulse Resp BP Pulse Ox 10/21/16 07:59 99 10/21/16 07:00 75 10 L 89/53 99 10/21/16 06:00 77 14 83/54 98 10/21/16 05:30 75 16 106/54 98 10/21/16 05:00 77 18 106/54 91 L 10/21/16 04:30 79 16 87/51 98 10/21/16 04:00 97.9 F 90 15 87/51 98 10/21/16 03:30 78 15 97/56 97 10/21/16 03:00 75 17 97/56 96 10/21/16 02:30 81 16 83/49 10/21/16 02:00 82 16 83/49 91 L 10/21/16 01:00 85 16 82/47 94 L 10/21/16 00:30 87 18 95/53 96 10/21/16 00:00 100 F H 87 17 117/63 98 10/20/16 23:00 87 14 114/54 100 10/20/16 22:00 91 17 107/56 99 10/20/16 21:30 94 22 127/82 98 10/20/16 21:20 93 19 104/55 99 10/20/16 21:10 92 32 H 104/55 99 10/20/16 21:00 89 15 104/55 98 10/20/16 20:50 145 H 23 106/69 96 10/20/16 20:45 17 10/20/16 20:40 163 H 22 106/69 94 L 10/20/16 20:30 98.8 F 141 H 15 106/69 88 L 10/20/16 20:20 90 20 106/69 97 10/20/16 20:12 88 10/20/16 19:22 100.0 F H 97 16 85/50 95 Intake and Output 10/20/16 10/21/16 10/21/16 22:59 06:59 14:59 Intake Total 2725 675 Output Total 152 211 Balance 2573 464 Intake: IV 2725 675 Sodium Chloride 0.9% 1, 675 000 ml @ 75 mls/hr IV . [id number] [facility] Rx#:[id number] Sodium Chloride 0.9% 500 2575 ml @ 1000 mls/hr IV Q35M [facility] Rx#:[id number] Vancomycin 1,750 mg In 150 Sodium Chloride 0.9% 250 ml @ 125 mls/hr IVPB ONCE ONE Rx#:[id number] Output: Urine 152 211 Other: Voiding Method Indwelling Catheter Indwelling Catheter Weight 98 kg 91.4 kg No acute distress, oriented 3. Does not appear to be having any difficulty at this time. HEENT examination is grossly unremarkable. Mucous membranes are moist. No oral lesions. Neck supple. Full range of motion. No adenopathy. No thyromegaly. Neck veins are flat. Cardiovascular examination reveals regular rhythm rate. S1-S2 normal. No S3- S4 or murmur. Lungs reveal some bibasilar crackles. No rhonchi. No wheezes. Abdomen soft bowel sounds are heard. Extremities are intact. Results - Laboratory Findings CBC and BMP: 10/21/16 04:56 10/21/16 04:56 PT/INR, D-dimer PT 11.6 sec (9.0-12.0) 10/20/16 16:10 INR 1.2 (<1.1) 10/20/16 16:10 Abnormal lab findings: Abnormal Labs 10/20/16 10/20/16 10/20/16 20:08 20:39 21:20 WBC RBC Hgb Hct MCV Neutrophils # Monocytes # Chloride Carbon Dioxide BUN Creatinine Glucose POC Glucose (mg/dL) 143 H Plasma Lactic Acid Edilberto 2.8 H* Calcium Phosphorus Iron TIBC % Saturation Troponin I Urine Protein 2+ H Urine Glucose (UA) 3+ H 10/20/16 10/21/16 10/21/16 23:43 04:56 04:56 WBC RBC Hgb Hct MCV Neutrophils # Monocytes # Chloride 111 H Carbon Dioxide 19 L BUN 42 H Creatinine 8.80 H* Glucose 108 H POC Glucose (mg/dL) Plasma Lactic Acid Edilberto Calcium 7.3 L Phosphorus 6.7 H Iron TIBC % Saturation Troponin I 0.064 H* 0.100 H* Urine Protein Urine Glucose (UA) 10/21/16 10/21/16 04:56 04:56 WBC 17.0 H RBC 2.64 L Hgb 8.8 L D Hct 28.4 L MCV 107.7 H Neutrophils # 13.9 H Monocytes # 1.1 H Chloride Carbon Dioxide BUN Creatinine Glucose POC Glucose (mg/dL) Plasma Lactic Acid Edilberto Calcium Phosphorus Iron 12 L TIBC 178 L % Saturation 6.7 L Troponin I Urine Protein Urine Glucose (UA) - Diagnostic Findings Chest x-ray: image reviewed (X-rays medications the labs are all reviewed on this patient.) Assessment and Plan (1) Diarrhea Status: Acute (2) Chronic renal failure Status: Acute (3) Fever Status: Acute (4) Influenza Status: Acute (5) Interstitial lung disease Status: Acute (6) Sepsis Status: Acute Plan: Plan The patient's labs x-rays a medications are all reviewed. The chest x-ray appears normal. He recently had a VATS lung biopsy done by Dr. Stewart for interstitial lung disease. The patient has a history of chronic renal failure. Currently on hemodialysis. Nephrology has been consulted. I reviewed the rest of the medications. This recommendation suggestions are forthcoming. The patient is well enough to be transferred to the general medical floor. Time with Patient: Greater than 30
--- NOTE | 2016-10-21 11:50 | CONS ---
DATE OF CONSULTATION: This is a gentleman with end-stage renal disease, who is on peroneal dialysis, came into the hospital with fatigue, lack of energy and ability to stand and the clinical picture raised the possibility of sepsis. He has been hospitalized in the ICU and while he was in the ICU, he had a run what seems to be a paroxysmal atrial tachycardia at 140 beats per minute. This was a very self-limited brief episode. Patient was not symptomatic. At the time of my evaluation, he is in sinus rhythm, complaints of fatigue. He has multiple comorbid conditions in the form of end-stage renal disease on peritoneal dialysis, interstitial lung disease confirmed on a biopsy and also has history of some REVENUE STAMP CLERK shunt, the details of which are unclear, cataract surgery as well. He has had previous arthroscopic surgery of his knee joint. Details of this are unclear. From a cardiac standpoint, he does not have any history of prior KS or CVA. His last echo revealed mild aortic stenosis, preserved systolic function without pulmonary hypertension. At the time of my evaluation, he is resting comfortably. Denies any chest discomfort or shortness of breath at rest. He also has some autonomic dysfunction and takes midodrine. PAST MEDICAL HISTORY: 1. End-stage renal disease with autonomic dysfunction. 2. Pulmonary fibrosis. 3. History of hypertension. 4. Hypothyroidism. 5. History of anemia. Medications at home include Zofran, midodrine, levothyroxine, lactulose, Epogen. Allergies are SULFA and PENICILLIN. On examination, blood pressure is 106/60, pulse rate is 70, sinus. HEENT unremarkable. Fundus was not examined by me. Neck is supple. There is no JVD. There is no carotid bruit. Heart exam reveals S1, S2 with ejection systolic murmur at the base of the heart, preserved second heart sound. Lungs reveal bilateral fine rales. Abdomen is soft. Lower extremities reveal diminished pulses. Central nervous system, limited exam revealed no focal deficits. Rhythm strip reviewed suggests evidence of short run of PAT. Otherwise predominantly sinus rhythm. There is no EKG for me to review at this time. IMPRESSION: 1. Paroxysmal atrial tachycardia. 2. End-stage renal disease on peritoneal dialysis. 3. Rule out sepsis. 4. History of pulmonary fibrosis. RECOMMENDATIONS: I am recommending that a small dose of beta mary in the form of 12.5 Lopressor b.i.d. Unless he has any additional arrhythmia, no other intervention is necessary. His electrolytes are being addressed by Nephrology. His last echo revealed preserved systolic function with mild aortic stenosis. Will continue to see if there is any further arrhythmia. Thank you very much for the consult.
[2016-10-21] MEDS ORDERED: VANCOMYCIN 1,500 MG in SODIUM CHLORIDE 0.9% 250 ML IVPB ONE (12:00)
[2016-10-21] MEDS: DIALYSIS (PERITONEAL) DEX 1.5% 2,500 ML INTRAPERIT SCH ×3 (13:00→17:08)
[2016-10-21] MEDS: HEPARIN SODIUM,PORCINE 5,000 UNIT/ML 1 ML VIAL SQ SCH (18:25)
[2016-10-21] MEDS: OSELTAMIVIR 60 MG/10 ML ORAL SYRINGE PO SCH (21:24)
[2016-10-21] MEDS: METOPROLOL TARTRATE 12.5 MG TAB PO SCH (22:26)
[2016-10-22] MEDS: CHERRY FLAVOR 60 ML BOTTLE PO SCH ×5 (00:35→23:55)
[2016-10-22] MEDS: HEPARIN SODIUM,PORCINE 5,000 UNIT/ML 1 ML VIAL SQ SCH ×4 (00:35→23:55)
[2016-10-22] MEDS: VANCOMYCIN ORAL SOLUTION 250 MG/5 ML BOTTLE PO SCH ×5 (00:35→23:55)
[2016-10-22] MEDS: DIALYSIS (PERITONEAL) DEX 1.5% 2,500 ML INTRAPERIT SCH ×5 (00:57→23:15)
[2016-10-22] MEDS: SODIUM CHLORIDE 0.9% 1,000 ML IV SCH ×2 (01:21→14:55)
[2016-10-22] MEDS: LEVOTHYROXINE 75 MCG TAB PO SCH (06:44)
[2016-10-22] MEDS: PANTOPRAZOLE 40 MG TABLET PO SCH (08:12)
[2016-10-22] MEDS: MIDODRINE 5 MG TAB PO SCH ×3 (08:13→16:58)
[2016-10-22] MEDS: SEVELAMER 800 MG TAB PO SCH ×3 (08:13→16:58)
[2016-10-22] MEDS: B COMPLEX-VIT C-VIT E-ZINC 1 EACH TAB PO SCH (08:14)
[2016-10-22] MEDS: ZINC GLUCONATE 50 MG TAB PO SCH (08:14)
[2016-10-22] MEDS: METOPROLOL TARTRATE 12.5 MG TAB PO SCH ×2 (08:14→21:26)
--- NOTE | 2016-10-22 08:34 | HP ---
DATE OF ADMISSION: 10/20/2016 Mr. Guidry is a 76 -year-old male with known history of end stage renal disease, on peritoneal dialysis, history of pulmonary fibrosis/interstitial lung disease, status post recent lung biopsy by Dr. Stewart at [facility] came to the hospital was brought to the hospital with generalized weakness and unable to stand and ambulate at home. Family could not bring him in a car and EMS was called. Biopsy results are still pending at this time. Otherwise, patient was not feeling his usual self and he appears to have diarrhea recently. Denied any fever or chills. Patient has generalized weakness and fatigue. Patient was feeling hot and cold over the past one day. Also had a number of loose bowel movements since yesterday after. The patient was brought to the hospital by EMS, the patient was found to have C. dif toxin positive and influenza positive. Patient otherwise currently is feeling much better now. REVIEW OF SYSTEMS: CONSTITUTIONAL: The patient does have subjective fever and chills at home and generalized weakness, malaise and fatigue. CARDIOVASCULAR: No chest pain or short of breath. ABDOMEN: No nausea or vomiting. Patient does have diarrhea. Patient does have minimal diffuse abdominal pain. GENITOURINARY: Negative. ENDOCRINE: Negative. PSYCHIATRY: Negative. SKIN: Negative. All other fourteen-point review of systems negative except as above. PAST MEDICAL HISTORY: 1. ESRD on peritoneal dialysis. 2. Hypotension. 3. Pulmonary fibrosis. PAST SURGICAL HISTORY: Orthopedic surgery, hernia repair, PRINCIPAL CLOUD ARCHITECT shunt, cataract surgery. SOCIAL HISTORY: The patient never a smoker. Denied any alcohol use. Denied any drugs or IVDU. FAMILY HISTORY: Son has pulmonary embolus. ALLERGIES: PENICILLIN, SULFA. Home medications: 1. Levothyroxine. 2. Midodrine. 3. Renvela. 4. Vitamin B complex. 5. ( ). 6. Midodrine. 7. [place]. 8. Lactulose. 9. Ondansetron. PHYSICAL EXAMINATION: A 76 year old male lying in the bed comfortably. Awake, alert, oriented, x3, appears in no apparent distress. VITALS: Blood pressure is 114/61, pulse is 73, respirations 17, temperature afebrile, pulse ox is 96% on room air. HEENT: Atraumatic, normocephalic. Neck is supple. No JVD. CVS: S1, S2 heard. No murmurs, no gallop. LUNGS: Bilateral air entry is present. Decreased breath sounds bilateral basally. ABDOMEN: Soft. Peritoneal dialysis catheter is intact. Bowel sounds are present, nontender. No guarding or rigidity. MECHANICAL DRAWING TEACHER: Awake, alert, oriented x3. No focal neurologic deficits. EXTREMITIES: No edema. Pulses are palpable bilaterally. No clubbing or cyanosis. PSYCHIATRIC: Cooperative. LABORATORY DATA: WBC 19.0, hemoglobin 10.4, platelets 443, sodium 142, potassium 4.2, chloride 104, bicarb is 18, BUN 42, creatinine 8.46. Lactic acid 4.5 on admission. Calcium 8.1, albumin 2.7, ( ) 54 and influenza B, PCR positive. Troponin 0.064, and 0.1. C. dif toxin positive. Chest x-ray showed no significant interval change. IMPRESSION: 1. Diarrhea secondary to Clostridium difficile colitis. 2. Sepsis secondary to Clostridium difficile infection. 3. Chronic kidney disease on peritoneal dialysis. 4. Interstitial lung disease/fibrosis, status post recent biopsy at the [facility] awaiting biopsy results. 5. Influenza B positive. 6. Generalized weakness and malaise. 7. Paroxysmal atrial tachycardia. 8. DVT prophylaxis. 9. Orthostatic hypotension. Discussion and plan: Patient will be continued on vancomycin p.o. and continue peritoneal dialysis and continue with the home medications and follow up closely. The patient was started on low-dose metoprolol and continue the Tamiflu. Prognosis guarded. Further recommendations based on clinical course.
[2016-10-22 09:21] LABS: Basophils % (A) 0 %; CH 32.3; CHCM 29.8; Eosinophils # (A) 0.6 k/uL (0-0.7); Eosinophils % (A) 4 %; HCT 30.9 % (39.0-53.0); HDW 2.62; HGB 9.4 gm/dL (13.0-17.5); Hypochromasia Marked; Luc % (Auto) 2; Lymphocytes # (A) 1.2 k/uL (1.0-4.8); Lymphocytes % (A) 9 %; MCH 33.1 pg (25.0-35.0); MCHC 30.3 g/dL (31.0-37.0); Macrocytosis Marked; Mean Platelet Volume 7.2; Monocytes # (A) 0.7 k/uL (0-1.0); Monocytes % (A) 5 %; Neutrophils # (A) 10.9 k/uL (1.3-7.7); Neutrophils % (A) 80 %; RBC 2.84 m/uL (4.30-5.90); RDW 13.9 % (11.5-15.5); WBC 13.7 k/uL (3.8-10.6); WBC (Perox) 14.53
[2016-10-22 09:39] LABS: Calcium 7.4 mg/dL (8.4-10.2); Magnesium 2.5 mg/dL (1.6-2.3); Phosphorous 6.1 mg/dL (2.5-4.5); Potassium 4.2 mmol/L (3.5-5.1)
[2016-10-22 10:18] LABS: Manual Review Performed; Polychromasia Present
[2016-10-22] MEDS ORDERED: SODIUM FERRIC GLUCONAT-SUCROSE 125 MG in SODIUM CHLORIDE 0.9% 100 ML IVPB SCH (17:00)
--- NOTE | 2016-10-22 17:09 | P.PN ---
Subjective Principal diagnosis: Influenza type B, C. difficile colitis This is a very pleasant 76-year-old gentleman who was recently here for a open lung biopsy on 10/15/2016 with now biopsy-proven usual interstitial pneumonia ( UIP) with a clinical syndrome of idiopathic pulmonary fibrosis. He was discharged home on 10/16/2016. He re-presented here on 10/20/2016 with progressive weakness, diarrhea, fatigue and the inability to stand. He was found to have C. difficile colitis toxin positive as well as influenza B. He was seen and evaluated by Dr. Luna yesterday. He has been initiated on Tamiflu and oral vancomycin. He is seen today on the regular medical floor in follow-up. He is awake and alert in no acute distress. He is still quite weak. He currently denies any shortness of breath, cough or congestion. His chest x-ray revealed no acute pulmonary process. There is no significant interval change from prior discharge. He is maintaining good O2 saturations in the mid 90s on room air. He is currently afebrile. Current white count 13.7. The patient does utilize peritoneal dialysis in the outpatient setting which was resumed here and his current creatinine is 9.72. Objective - Vital Signs Vital signs: Vital Signs Temp 97.8 F 10/22/16 15:00 Pulse 72 10/22/16 15:00 Resp 16 10/22/16 15:00 BP 126/69 10/22/16 15:00 Pulse Ox 95 10/22/16 15:00 Intake & Output 10/21/16 10/22/16 10/22/16 18:59 06:59 18:59 Intake Total 875 200 Output Total 60 1237 Balance 815 -1037 Intake: IV 675 Sodium Chloride 0.9% 1, 675 000 ml @ 75 mls/hr IV . [id number] [facility] Rx#:[id number] Intake, IV Titration 200 Amount Magnesium Sulfate-D5w Pmx 100 1 gm In Dextrose/Water 1 100ml.bag @ 100 mls/hr IVPB Q1H [facility] Rx#: [id number] Potassium Chloride 10 meq 100 Lidocaine 2% Inj 10 mg In Sodium Chloride 0.9% 100 ml @ 100 mls/hr IV Q1HR [facility] Rx#:[id number] Oral 200 Output: Urine 60 550 Uretheral (White) 550 Post Void Residual 687 Other: Voiding Method Indwelling Catheter Self-Catheterization # Voids 1 1 # Bowel Movements 1 1 - Exam GENERAL EXAM: Alert, fairly comfortable in no apparent distress. HEAD: Normocephalic. EYES: Normal reaction of pupils, equal size. NOSE: Clear with pink turbinates. THROAT: No erythema or exudates. NECK: No masses, no JVD. CHEST: No chest wall deformity. LUNGS: Equal air entry with no crackles, wheeze, rhonchi or dullness. CVS: S1 and S2 normal with no audible murmurs, regular rhythm. ABDOMEN: Slightly distended, soft, normal bowel sounds, no guarding or rigidity. SPINE: No scoliosis or deformity SKIN: No rashes CENTRAL NERVOUS SYSTEM: No focal deficits, tone is normal in all 4 extremities. Extremities: There is trace peripheral edema. No clubbing, no cyanosis. Peripheral pulses are intact. - Labs CBC & Chem 7: 10/22/16 08:22 10/22/16 08:22 Labs: Abnormal Lab Results - Last 24 Hours (Table) 10/22/16 10/22/16 Range/Units 08:22 08:22 WBC 13.7 H (3.8-10.6) k/uL RBC 2.84 L (4.30-5.90) m/uL Hgb 9.4 L (13.0-17.5) gm/dL Hct 30.9 L (39.0-53.0) % MCV 109.0 H (80.0-100.0) fL MCHC 30.3 L (31.0-37.0) g/dL Plt Count 457 H (150-450) k/uL Neutrophils # 10.9 H (1.3-7.7) k/uL Chloride 113 H (98-107) mmol/L Carbon Dioxide 15 L (22-30) mmol/L BUN 47 H (9-20) mg/dL Creatinine 9.72 H* (0.66-1.25) mg/dL Glucose 163 H (74-99) mg/dL Calcium 7.4 L (8.4-10.2) mg/dL Phosphorus 6.1 H (2.5-4.5) mg/dL Magnesium 2.5 H (1.6-2.3) mg/dL Microbiology - Last 24 Hours (Table) 02/18/17 21:20 Urine Culture - Final Urine,Catheterized Assessment and Plan Plan: Impression: #1 Progressive weakness secondary to C. difficile infection as well as influenza B. #2 Usual interstitial pneumonia/idiopathic pulmonary fibrosis, biopsy proven with recent thoracoscopic left lung biopsy on 10/15/2016. #3 Chronic kidney disease on peritoneal dialysis. #4 Paroxysmal atrial tachycardia. Plan: The patient was seen and evaluated by Dr. Watts. We will continue the patient's current medications. The patient and his are explained the biopsy results including UIP and can be further discussed with Dr. Luna in the outpatient setting. In the interim, he remains on Tamiflu and oral vancomycin. We'll continue to follow make further recommendations based on his clinical status.
--- NOTE | 2016-10-22 17:20 | PN ---
Patient is seen for followup for end-stage renal disease. He is maintained on peritoneal dialysis and was admitted to the hospital with nausea, vomiting, not feeling well and mental status changes. He was found to have C difficile colitis and is also being treated for influenza type B. His appetite has improved. He is eating and his diarrhea has also improved, according to nursing staff. He has not had PD exchanges for about 2 days now. He is currently using a [place] system, which will need to be switched to ( ) via a connector to be able to do the manual exchanges in the hospital. On examination, blood pressure is 144/95, heart rate 70 per minute. He is afebrile. EXAMINATION OF THE HEART: S1 and S2. EXAMINATION OF THE LUNGS: Bilateral breath sounds are heard. ABDOMEN: Soft, nontender. Examination of lower extremities shows no evidence of edema. SENIOR RESEARCH ANALYST exam is grossly intact. Labs show sodium 143, potassium 4.2, BUN 47, serum creatinine 9.72. Hemoglobin 9.4 g/dL. Iron saturation was at 6.7%. ASSESSMENT: 1. End-stage renal disease, on peritoneal dialysis. Will maintain patient on manual exchanges in the hospital. 2. 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 3. Clostridium difficile colitis, maintained on oral vancomycin. 4. Influenza type B, maintained on Tamiflu. 5. Severe iron deficiency and anemia from iron deficiency and anemia of chronic kidney disease. PLAN: Manual PD exchanges. IV iron x1. Repeat labs in a.m.
[2016-10-22] MEDS: OSELTAMIVIR 60 MG/10 ML ORAL SYRINGE PO SCH (21:27)
[2016-10-23] MEDS: SODIUM CHLORIDE 0.9% 1,000 ML IV SCH (03:58)
[2016-10-23] MEDS: DIALYSIS (PERITONEAL) DEX 1.5% 2,500 ML INTRAPERIT SCH ×2 (05:21→12:28)
[2016-10-23] MEDS: CHERRY FLAVOR 60 ML BOTTLE PO SCH ×2 (06:25→12:37)
[2016-10-23] MEDS: VANCOMYCIN ORAL SOLUTION 250 MG/5 ML BOTTLE PO SCH ×2 (06:25→12:37)
[2016-10-23] MEDS: LEVOTHYROXINE 75 MCG TAB PO SCH (06:25)
[2016-10-23] MEDS: SEVELAMER 800 MG TAB PO SCH ×2 (07:24→12:27)
[2016-10-23] MEDS: MIDODRINE 5 MG TAB PO SCH ×2 (07:24→12:28)
[2016-10-23] MEDS: HEPARIN SODIUM,PORCINE 5,000 UNIT/ML 1 ML VIAL SQ SCH (07:24)
[2016-10-23] MEDS: PANTOPRAZOLE 40 MG TABLET PO SCH (07:24)
[2016-10-23] MEDS: ZINC GLUCONATE 50 MG TAB PO SCH (07:25)
[2016-10-23] MEDS: B COMPLEX-VIT C-VIT E-ZINC 1 EACH TAB PO SCH (07:25)
[2016-10-23] MEDS: METOPROLOL TARTRATE 12.5 MG TAB PO SCH (07:27)
[2016-10-23 07:31] VITALS: PULSE 70; RESP 18
[2016-10-23] MEDS ORDERED: FUROSEMIDE 10 MG/ML 10 ML VIAL IV STA (08:25)
[2016-10-23 09:08] LABS: Basophils % (A) 1 %; CH 33.1; CHCM 30.7; Eosinophils # (A) 0.6 k/uL (0-0.7); Eosinophils % (A) 7 %; HCT 29.5 % (39.0-53.0); HDW 2.75; HGB 8.8 gm/dL (13.0-17.5); Hypochromasia Slight; Luc % (Auto) 3; Lymphocytes # (A) 1.3 k/uL (1.0-4.8); Lymphocytes % (A) 16 %; MCH 32.2 pg (25.0-35.0); MCHC 29.8 g/dL (31.0-37.0); MCV 108.3 fL (80.0-100.0); Macrocytosis Marked; Mean Platelet Volume 8.1; Monocytes # (A) 0.6 k/uL (0-1.0); Monocytes % (A) 7 %; Neutrophils # (A) 5.3 k/uL (1.3-7.7); Neutrophils % (A) 67 %; RBC 2.72 m/uL (4.30-5.90); RDW 14.2 % (11.5-15.5); WBC (Perox) 8.28
[2016-10-23 09:43] LABS: Phosphorous 4.5 mg/dL (2.5-4.5); Potassium 3.4 mmol/L (3.5-5.1)
--- NOTE | 2016-10-23 11:45 | PN ---
DATE OF SERVICE: 10/22/2016 Mr. Guidry is a 76-year-old male with known history of ESRD on peritoneal dialysis status post lung biopsy showing interstitial pneumonia/idiopathic pulmonary fibrosis at the [facility] as per the update from Pulmonary. Was admitted to the hospital with complaints of generalized weakness and found to have C. difficile colitis currently patient feels weak, but is improving. Diarrhea improved as well. Otherwise, patient also being treated for influenza. Currently denied any complaint of chest pain. No short of breath. No acute overnight issues. REVIEW OF SYSTEMS: CONSTITUTIONAL: No fever. No chills. RESPIRATORY: No cough or sputum production. CARDIOVASCULAR: No chest pain or short of breath. ABDOMEN: No nausea, vomiting, or abdominal pain. GENITOURINARY: Negative. ENDOCRINE: Negative. PSYCHIATRY: Negative. SKIN: Negative. All other 14-point review of systems negative except as above. CURRENT MEDICATIONS: Reviewed. PHYSICAL EXAMINATION: Mr. Guidry is a 76-year-old male lying in the bed. Awake, alert, oriented, x3, appears to be in no apparent distress. VITALS: Blood pressure is 142/71, pulse is 70, respirations 18, temperature afebrile, pulse ox is 95% on room air. HEENT: Atraumatic, normocephalic. Neck is supple. No JVD. CVS EXAM: S1, S2 heard. No murmurs, no gallop. LUNGS: Bilateral air entry is present. No wheezing. Patient does have crackles. Nonlabored breathing. ABDOMEN: Soft, nontender. Bowel sounds are present. SURGICAL TECHNOLOGIST: Awake, alert and oriented x3. No focal neurologic deficits. Cranial nerves grossly intact. EXTREMITIES: No edema. Pulses are palpable bilaterally. No clubbing or cyanosis. PSYCHIATRIC: Cooperative. LABORATORY DATA: WBC is 13.7, hemoglobin 9.4, platelets 457, sodium 143, potassium 4.2, chloride 113, bicarb is 18, BUN 47, creatinine 9.72, calcium 7.4. IMPRESSION: 1. Diarrhea secondary to Clostridium difficile infection, generalized weakness is also improving, diarrhea improved. 2. Sepsis secondary to Clostridium difficile infection. 3. Usual interstitial pneumonia/idiopathic pulmonary fibrosis as per recent biopsy obtained at [facility] on 10/15/2016. 4. Chronic kidney disease on peritoneal dialysis. 5. Influenza B positive infection. Currently with Tamiflu. 6. Paroxysmal atrial tachycardia. 7. Orthostatic hypotension. 8. Deep venous thrombosis prophylaxis with heparin subcutaneous. HOSPITAL COURSE: Will continue with vancomycin p.o. along with Tamiflu and continue with the current management. Anticipate discharge in the next 234 hours with more clinical movement. Continue on peritoneal dialysis. Pulmonary is following this patient. Further recommendations based on the clinical course.
[2016-10-23 12:35] VITALS: BP 138/81; TEMP 98.2
--- NOTE | 2016-10-23 12:49 | PN ---
The patient is seen for follow-up for end-stage renal disease. He is currently comfortable maintained on manual exchanges for peritoneal dialysis and he seems to be tolerating it well. He states he has had good bowel movements. No nausea or vomiting. Patient does appear to be a little bit more short of breath today. On examination, blood pressure is 118/68, heart rate 65 per minute. He is afebrile. Examination of the heart S1 and S2. Examination of the lungs: Bilateral breath sounds are heard. ABDOMEN: Soft, nontender. Examination of lower extremities shows edema 1+ bilaterally. Labs show sodium 141, potassium 3.4. Hemoglobin 8.8 g/dL. ASSESSMENT: 1. End-stage renal disease, on peritoneal dialysis. Continue current peritoneal dialysis exchanges. 2. Mild volume overload. We will Hep-Lock IV fluids. Encourage increased oral intake and I will give him one dose of Lasix. 3. Clostridium difficile colitis, currently improving, maintained on oral vancomycin. 4. Influenza type B maintained on Tamiflu. 5. Anemia with evidence of iron deficiency, status post IV iron. PLAN: Lasix x1 and Hep-Lock IV fluids. Continue current PD exchanges.
--- NOTE | 2016-10-23 16:05 | P.PN ---
Subjective Principal diagnosis: Influenza type B, C. difficile colitis This is a very pleasant 76-year-old gentleman who was recently here for a open lung biopsy on 10/15/2016 with now biopsy-proven usual interstitial pneumonia ( UIP) with a clinical syndrome of idiopathic pulmonary fibrosis. He was discharged home on 10/16/2016. He re-presented here on 10/20/2016 with progressive weakness, diarrhea, fatigue and the inability to stand. He was found to have C. difficile colitis toxin positive as well as influenza B. He has been initiated on Tamiflu and oral vancomycin. His chest x-ray revealed no acute pulmonary process. There is no significant interval change from prior discharge. He is seen today 10/23/2016 on the regular medical floor in follow-up. He is awake and alert in no acute distress. He is having less diarrhea now. He is still quite weak. He currently denies any shortness of breath, cough or congestion. He is maintaining good O2 saturations in the mid 90s on room air. He is currently afebrile. No leukocytosis. The patient does utilize peritoneal dialysis in the outpatient setting which was resumed here and his current creatinine is 8.58. He is anxious to go home. Objective - Vital Signs Vital signs: Vital Signs Temp 98.2 F 10/23/16 12:33 Pulse 70 10/23/16 12:33 Resp 18 10/23/16 07:00 BP 138/81 10/23/16 12:33 Pulse Ox 95 10/23/16 12:33 Intake & Output 10/22/16 10/23/16 10/23/16 18:59 06:59 18:59 Intake Total 150 Output Total 845 400 Balance -845 -250 Weight 93 kg Intake: IV 150 Sodium Chloride 0.9% 1, 150 000 ml @ 75 mls/hr IV . [id number] [facility] Rx#:[id number] Output: Urine 550 400 Straight 400 Uretheral (White) 550 Post Void Residual 295 Other: Voiding Method Self-Catheterization Self-Catheterization # Voids 1 1 # Bowel Movements 1 1 - Exam GENERAL EXAM: Alert, fairly comfortable in no apparent distress. HEAD: Normocephalic. EYES: Normal reaction of pupils, equal size. NOSE: Clear with pink turbinates. THROAT: No erythema or exudates. NECK: No masses, no JVD. CHEST: No chest wall deformity. LUNGS: Equal air entry with no crackles, wheeze, rhonchi or dullness. CVS: S1 and S2 normal with no audible murmurs, regular rhythm. ABDOMEN: Slightly distended, soft, normal bowel sounds, no guarding or rigidity. SPINE: No scoliosis or deformity SKIN: No rashes CENTRAL NERVOUS SYSTEM: No focal deficits, tone is normal in all 4 extremities. Extremities: There is trace peripheral edema. No clubbing, no cyanosis. Peripheral pulses are intact. - Labs CBC & Chem 7: 10/23/16 08:45 10/23/16 08:45 Labs: Abnormal Lab Results - Last 24 Hours (Table) 10/23/16 10/23/16 Range/Units 08:45 08:45 RBC 2.72 L (4.30-5.90) m/uL Hgb 8.8 L (13.0-17.5) gm/dL Hct 29.5 L (39.0-53.0) % MCV 108.3 H (80.0-100.0) fL MCHC 29.8 L (31.0-37.0) g/dL Potassium 3.4 L (3.5-5.1) mmol/L Chloride 110 H (98-107) mmol/L Carbon Dioxide 18 L (22-30) mmol/L BUN 42 H (9-20) mg/dL Creatinine 8.58 H* (0.66-1.25) mg/dL Glucose 143 H (74-99) mg/dL Calcium 7.0 L (8.4-10.2) mg/dL Microbiology - Last 24 Hours (Table) 10/20/16 21:20 Urine Culture - Final Urine,Catheterized Assessment and Plan Plan: Impression: #1 Progressive weakness secondary to C. difficile infection as well as influenza B. #2 Usual interstitial pneumonia/idiopathic pulmonary fibrosis, biopsy proven with recent thoracoscopic left lung biopsy on 10/15/2016. #3 Chronic kidney disease on peritoneal dialysis. #4 Paroxysmal atrial tachycardia. Plan: The patient was seen and evaluated by Dr. Watts. We will continue the patient's current medications. He remains on Tamiflu and oral vancomycin. The patient and his were explained the biopsy results including UIP and can be further discussed with Dr. Luna in the outpatient setting. The patient is cleared for discharge from the pulmonary standpoint.
--- NOTE | 2016-12-17 05:57 | DS ---
DATE OF ADMISSION: 10/20/2016 DATE OF DISCHARGE: 10/23/2016 DISCHARGE DIAGNOSES: 1. Diarrhea secondary to Clostridium difficile infection. 2. Generalized weakness due to diarrhea improved now. 3. Sepsis secondary to Clostridium difficile infection. 4. Usual interstitial pneumonia/idiopathic pulmonary fibrosis as per recent biopsy obtained from [facility] on 10/15/2016. 5. Chronic kidney disease on peritoneal dialysis. 6. Influenza B infection. 7. Paroxysmal atrial tachycardia, stable heart rate. 8. Orthostatic hypotension, improved. 9. Deep venous thrombosis prophylaxis, heparin subcu. 10. Hypothyroidism. HOSPITAL COURSE: Mr. Guidry is a 76-year-old male with known history of ESRD on peritoneal dialysis and a recent lung biopsy showing interstitial pneumonia came to the hospital with generalized weakness and found to have C, difficile colitis with toxin positive. The patient was continued on IV fluids, antibiotics in the form of vancomycin p.o. and influenza B positive for which patient was started on Tamiflu. Patient has been feeling very weak, which has been improving now. Otherwise, the patient was continued on peritoneal dialysis as per Nephrology. Patient was in the ICU initially and clinically improved now. The patient is very anxious to go home. Otherwise the diarrhea is much improved now. 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 Otherwise, the patient is stable to be discharged home. DISCHARGE PHYSICAL EXAMINATION: A 76-year-old male lying in the bed. Awake, alert, oriented x3, appears to be in no apparent distress. VITALS: Blood pressure is 138/81, pulse is 70, respirations 18, temperature afebrile, pulse ox 95% on room air. LABORATORY DATA: Reviewed. Discharge physical examination done. Discharge medications include: 1. Levothyroxine 75 mcg p.o. daily. 2. Midodrine 10 mg p.o. b.i.d. 3. Zofran 4 mg q.8 hourly p.r.n. for nausea and vomiting. 4. Renvela 2,400 mg a.c. t.i.d. 5. Dialyvite with zinc 1 tablet p.o. daily. 6. Epogen 2000 units IM q. Saturday. 7. Midodrine 5 mg p.o. daily. 8. Lactulose 20 grams p.o. daily. 9. [place] 5/325 one tablet p.o. q.4 hourly p.r.n. for pain. 10. Metoprolol 12.5 mg p.o. b.i.d. 11. Tamiflu 30 mg p.o. at bedtime. 12. Vancomycin p.o. 250 mg p.o. q.6 hourly for 11 more days. 13. Zinc gluconate 50 mg p.o. daily. Activity as tolerated. Heart healthy and renal diet. Follow with Dr. Wolfe in the clinic. Home with home health care services.
== END 2016-10-23 16:58 | disposition home health service (06) | DRG 871 ==
LOC: EC 16:54 → 6ICU 19:03 → 4MS4W 10-21 18:06
PROVIDERS: ADMIT Hospitalist; ATTEND Hospitalist
PROC: 3E1M39Z Irrigation of Peritoneal Cavity using Dialysate, Percutaneous Approach (ICD-10-PCS; principal; 2016-10-22)
DX: A41.4 Sepsis due to anaerobes (principal); N18.6 End stage renal disease; A04.7 Enterocolitis due to Clostridium difficile; I12.0 Hypertensive chronic kidney disease with stage 5 chronic kidney disease or end stage renal disease; J84.112 Idiopathic pulmonary fibrosis; I47.1 Supraventricular tachycardia; J10.1 Influenza due to other identified influenza virus with other respiratory manifestations; I95.1 Orthostatic hypotension; E03.9 Hypothyroidism, unspecified; I35.0 Nonrheumatic aortic (valve) stenosis; E87.70 Fluid overload, unspecified; D63.1 Anemia in chronic kidney disease; D50.9 Iron deficiency anemia, unspecified; R26.2 Difficulty in walking, not elsewhere classified; Z98.49 Cataract extraction status, unspecified eye; Z98.2 Presence of cerebrospinal fluid drainage device; Z99.2 Dependence on renal dialysis; Z88.0 Allergy status to penicillin; Z88.2 Allergy status to sulfonamides; Z79.899 Other long term (current) drug therapy
CPT/HCPCS: 36415; 71010; 80048; 80053; 80202; 80299; 81001; 82533; 82550; 82553; 83540; 83550; 83605; 83735; 84100; 84484; 85025; 85610; 85730; 87040; 87077; 87086; 87186; 87502; 93005; 96365; 96368; 99285

== ENCOUNTER 2017-02-17 08:15 | Emergency (ER) | payer MEDICARE ==
[2017-02-17 08:57] VITALS: RESP 18
[2017-02-17] MEDS ORDERED: SODIUM CHLORIDE 0.9% 1,000 ML IV STA (09:20)
[2017-02-17] MEDS ORDERED: SODIUM CHLORIDE 0.9% 500 ML IV STA (09:20)
--- NOTE | 2017-02-17 09:22 | ED ---
General Adult HPI - General Chief complaint: Nausea/Vomiting/Diarrhea Stated complaint: diarrhea Time Seen by Provider: 02/17/17 08:52 Source: patient, family, RN notes reviewed Mode of arrival: wheelchair Limitations: no limitations - History of Present Illness Initial comments: Patient is a pleasant 76-year-old male presenting to the emergency Department with complaints of diarrhea. Onset of symptoms was 3 days ago. Patient is having diarrhea approximately 3 times daily. Patient had similar problems around a year ago and became very dehydrated and needed to be in the ICU at that time. No abdominal pain. Patient does have occasional vomiting which is chronic and unchanged for him. - Related Data Home Medications Medication Instructions Recorded Confirmed B Complex 11/Folic/C/Biot/Zinc 1 tab PO DAILY 08/06/16 02/17/17 [Dialyvite with Zinc Tablet] Levothyroxine Sodium [Synthroid] 75 mcg PO DAILY 08/06/16 02/17/17 Midodrine HCl [ProAmatine] 10 mg PO TID 08/06/16 02/17/17 Sevelamer [Renvela] 2,400 mg PO AC-TID 08/06/16 02/17/17 Calcitriol 0.5 mcg PO MO 02/17/17 02/17/17 Ergocalciferol (Vitamin D2) 50,000 unit PO FATIMA 02/17/17 02/17/17 [Vitamin D2] Previous Rx's Medication Instructions Recorded Levofloxacin [Levaquin] 500 mg PO DAILY #10 tab 02/17/17 Allergies Allergy/AdvReac Type Severity Reaction Status Date / Time Penicillins Allergy Rash/Hives Verified 02/17/17 08:48 Sulfa (Sulfonamide Allergy Rash/Hives Verified 02/17/17 08:48 Antibiotics) Review of Systems ROS Statement: Those systems with pertinent positive or pertinent negative responses have been documented in the HPI. ROS Other: All systems not noted in ROS Statement are negative. Constitutional: Denies: fever, chills Eyes: Denies: eye pain ENT: Denies: ear pain Respiratory: Denies: dyspnea Cardiovascular: Denies: chest pain Endocrine: Denies: fatigue Gastrointestinal: Reports: vomiting, diarrhea. Denies: abdominal pain, constipation Genitourinary: Denies: dysuria Musculoskeletal: Denies: back pain Skin: Denies: rash Past Medical History Past Medical History: Renal Disease Additional Past Medical History / Comment(s): hypotension, pulmonary fibrosis History of Any Multi-Drug Resistant Organisms: C-DIFF Date of last positivie culture/infection: 10/20/2016 MDRO Source:: stool Past Surgical History: Hernia Repair, Orthopedic Surgery Additional Past Surgical History / Comment(s): vp communications shunt. cataract Past Anesthesia/Blood Transfusion Reactions: Previous Problems w/ Anesthesia Additional Past Anesthesia/Blood Transfusion Reaction / Comment(s): states stopped breathing during an arthroscopy yrs. ago but has had surgeries since w/ no problems Past Psychological History: No Psychological Hx Reported Smoking Status: Never smoker Past Alcohol Use History: None Reported Past Drug Use History: None Reported - Past Family History Son(s) Family Medical History: Pulmonary Embolus General Exam Limitations: no limitations General appearance: alert, in no apparent distress Head exam: Present: atraumatic Eye exam: Present: normal appearance, PERRL ENT exam: Present: normal oropharynx Neck exam: Present: normal inspection Respiratory exam: Present: normal lung sounds bilaterally Cardiovascular Exam: Present: regular rate, normal rhythm GI/Abdominal exam: Present: soft, other (Peritoneal dialysis port). Absent: distended, tenderness Extremities exam: Present: normal inspection Neurological exam: Present: alert Psychiatric exam: Present: normal affect, normal mood Skin exam: Present: normal color Course Vital Signs 02/17/17 02/17/17 02/17/17 08:22 08:56 10:11 Temperature 97.0 F L Pulse Rate 89 84 80 Respiratory 20 18 18 Rate Blood Pressure 100/62 107/61 113/69 O2 Sat by Pulse 97 95 96 Oximetry Medical Decision Making - Medical Decision Making Case was discussed with Dr. Cooper who states here in the abdomen with peritoneal dialysis is not uncommon. Patient reevaluated and resting comfortably in bed. Patient does request discharge. Patient and family were updated on results. Patient again states there is not significant abdominal pain. Patient and family updated on results and need for follow-up. Patient does have an appointment Saturday with his rn access. Possible urinary tract infection. Culture ordered. Patient will be placed on quinolone. - Lab Data Result diagrams: 02/17/17 08:50 02/17/17 08:50 Lab Results 02/17/17 02/17/17 02/17/17 Range/Units 08:50 08:50 10:05 WBC 10.5 (3.8-10.6) k/uL RBC 4.01 L (4.30-5.90) m/uL Hgb 12.9 L (13.0-17.5) gm/dL Hct 40.2 (39.0-53.0) % MCV 100.3 H (80.0-100.0) fL MCH 32.1 (25.0-35.0) pg MCHC 32.0 (31.0-37.0) g/dL RDW 14.4 (11.5-15.5) % Plt Count 439 (150-450) k/uL Neutrophils % 68 % Lymphocytes % 17 % Monocytes % 9 % Eosinophils % 4 % Basophils % 0 % Neutrophils # 7.1 (1.3-7.7) k/uL Lymphocytes # 1.8 (1.0-4.8) k/uL Monocytes # 0.9 (0-1.0) k/uL Eosinophils # 0.4 (0-0.7) k/uL Basophils # 0.0 (0-0.2) k/uL Macrocytosis Slight Sodium 139 (137-145) mmol/L Potassium 4.1 (3.5-5.1) mmol/L Chloride 102 (98-107) mmol/L Carbon Dioxide 19 L (22-30) mmol/L Anion Gap 18 mmol/L BUN 50 H (9-20) mg/dL Creatinine 8.33 H* (0.66-1.25) mg/dL Est GFR (MDRD) Af Amer 8 (>60 ml/min/1.73 sqM) Est GFR (MDRD) Non-Af 6 (>60 ml/min/1.73 sqM) Glucose 140 H (74-99) mg/dL Calcium 8.7 (8.4-10.2) mg/dL Total Bilirubin 0.6 (0.2-1.3) mg/dL AST 39 (17-59) U/L ALT 43 (21-72) U/L Alkaline Phosphatase 109 (38-126) U/L Total Protein 6.5 (6.3-8.2) g/dL Albumin 3.6 (3.5-5.0) g/dL Urine Color Yellow Urine Appearance Cloudy (Clear) Urine pH 6.0 (5.0-8.0) Ur Specific [place] 1.011 (1.001-1.035) Urine Protein 2+ H (Negative) Urine Glucose (UA) 3+ H (Negative) Urine Ketones Negative (Negative) Urine Blood Small H (Negative) Urine Nitrite Negative (Negative) Urine Bilirubin Negative (Negative) Urine Urobilinogen <2.0 (<2.0) mg/dL Ur Leukocyte Esterase Moderate H (Negative) Urine WBC 34 H (0-5) /hpf Urine WBC Clumps Rare H (None) /hpf Ur Squamous Epith Cells 9 H (0-4) /hpf Amorphous Sediment Occasional H (None) /hpf - Radiology Data Radiology results: image reviewed (Abdominal x-ray shows nonspecific abdomen. There is some air which could be related to peritoneal dialysis.) Disposition Clinical Impression: Diarrhea Disposition: HOME SELF-CARE Condition: Stable Instructions: Acute Diarrhea (ED) Additional Instructions: Please follow-up with your primary care doctor in the next day or 2 for recheck. Return for vomiting, uncontrolled diarrhea, concern for dehydration, abdominal pain, fever, worsening symptoms or any other concerns. Please also follow-up with your doctor rn access Saturday as planned. Prescriptions: Levofloxacin [Levaquin] 500 mg PO DAILY #10 tab Referrals: Francois Wolfe III, MD [Primary Care Provider] - 1-2 days Time of Disposition: 11:02
[2017-02-17 09:37] LABS: Basophils % (A) 0 %; CH 32.8; CHCM 32.9; Eosinophils # (A) 0.4 k/uL (0-0.7); Eosinophils % (A) 4 %; HCT 40.2 % (39.0-53.0); HDW 2.23; HGB 12.9 gm/dL (13.0-17.5); Luc # (Auto) 0.18; Luc % (Auto) 2; Lymphocytes # (A) 1.8 k/uL (1.0-4.8); Lymphocytes % (A) 17 %; MCH 32.1 pg (25.0-35.0); MCV 100.3 fL (80.0-100.0); Macrocytosis Slight; Mean Platelet Volume 7.5; Monocytes # (A) 0.9 k/uL (0-1.0); Monocytes % (A) 9 %; Neutrophils # (A) 7.1 k/uL (1.3-7.7); Neutrophils % (A) 68 %; RBC 4.01 m/uL (4.30-5.90); RDW 14.4 % (11.5-15.5); WBC 10.5 k/uL (3.8-10.6); WBC (Perox) 10.72
--- NOTE | 2017-02-17 09:42 | XR ---
EXAMINATION TYPE: XR KUB DATE OF EXAM: 02/17/2017 COMPARISON: NONE HISTORY: Pain TECHNIQUE: One view abdominal series FINDINGS: There is lucency below the right hemidiaphragm which could be related to free air. There is a periton eal dialysis catheter which may account for the finding correlate clinically. Degenerative and hypertrophic change of the spine is noted. Central line is seen in the right atrium. Arthropathy of the hip joints. IMPRESSION: 1. Free intraperitoneal air. This may be related to peritoneal dialysis catheter. Correlate clinicall y to exclude ruptured viscus. 2. Nonspecific bowel gas pattern.
[2017-02-17 09:45] LABS: Calcium 8.7 mg/dL (8.4-10.2); Potassium 4.1 mmol/L (3.5-5.1); Total Bilirubin 0.6 mg/dL (0.2-1.3); Total Protein 6.5 g/dL (6.3-8.2)
[2017-02-17 10:44] LABS: Amorphous Sediment,Urine Occasional /hpf; Appearance,Urine Cloudy (Clear); Bilirubin,Urine Negative (Negative); Glucose,Urine (UA) 3+ (Negative); Ketones,Urine Negative (Negative); Leukocyte Esterase,Urine Moderate (Negative); Nitrite,Urine Negative (Negative); Particle Count 36428; Protein,Urine 2+ (Negative); Specific Gravity,Urine 1.011 (1.001-1.035); Squamous Epithelial Cell,Urine 9 /hpf (0-4); UA Billing (MACRO vs. MICRO) MICRO; Urobilinogen,Urine <2.0 mg/dL (<2.0); WBC,Urine 34 /hpf (0-5)
[2017-02-17 11:32] VITALS: BP 115/63; PULSE 70; TEMP 97.5
== END 2017-02-17 11:32 | disposition home or self-care (01) ==
LOC: EC 08:15
DX: R19.7 Diarrhea, unspecified (principal); R11.2 Nausea with vomiting, unspecified; Z88.2 Allergy status to sulfonamides; Z88.0 Allergy status to penicillin; Z79.899 Other long term (current) drug therapy
CPT/HCPCS: 36415; 74000; 80053; 81001; 85025; 96360; 96361; 99284

== ENCOUNTER → 2017-03-13 | Outpatient (CLI) | payer MEDICARE ==
[2017-03-13 10:39] LABS: Basophils % (A) 0 %; CH 32.3; CHCM 32.5; Eosinophils # (A) 0.6 k/uL (0-0.7); Eosinophils % (A) 7 %; HCT 34.8 % (39.0-53.0); HDW 2.11; HGB 11.7 gm/dL (13.0-17.5); Luc # (Auto) 0.17; Luc % (Auto) 2; Lymphocytes # (A) 1.7 k/uL (1.0-4.8); Lymphocytes % (A) 18 %; MCH 33.4 pg (25.0-35.0); MCHC 33.5 g/dL (31.0-37.0); MCV 99.8 fL (80.0-100.0); Mean Platelet Volume 7.4; Monocytes # (A) 0.9 k/uL (0-1.0); Monocytes % (A) 10 %; Neutrophils # (A) 5.8 k/uL (1.3-7.7); Neutrophils % (A) 64 %; RBC 3.49 m/uL (4.30-5.90); RDW 13.7 % (11.5-15.5); WBC 9.2 k/uL (3.8-10.6); WBC (Perox) 8.77
[2017-03-13 11:04] LABS: Calcium 8.5 mg/dL (8.4-10.2); Potassium 4.5 mmol/L (3.5-5.1); Total Bilirubin 0.5 mg/dL (0.2-1.3); Total Protein 5.7 g/dL (6.3-8.2)
== END | disposition home or self-care (01) ==
LOC: LABWHC1 09:41
PROVIDERS: ATTEND Family Medicine
DX: Z00.01 Encounter for general adult medical examination with abnormal findings (principal); N18.5 Chronic kidney disease, stage 5; E03.9 Hypothyroidism, unspecified; D63.1 Anemia in chronic kidney disease; E11.21 Type 2 diabetes mellitus with diabetic nephropathy; G91.2 (Idiopathic) normal pressure hydrocephalus; E11.22 Type 2 diabetes mellitus with diabetic chronic kidney disease; Z99.2 Dependence on renal dialysis
CPT/HCPCS: 36415; 80053; 80061; 84439; 84443; 85025

== ENCOUNTER 2017-11-29 14:29 | Inpatient (IN) | payer MEDICARE ==
--- NOTE | 2017-11-29 15:07 | ED ---
Neuro HPI - General Chief Complaint: Neuro Symptoms/Deficit Stated Complaint: Uncontrolled Movements Time Seen by Provider: 11/29/17 14:50 Source: patient, family, RN notes reviewed Mode of arrival: wheelchair Limitations: no limitations - History of Present Illness Is the patient presenting with stroke symptoms?: No Initial Comments: This is a 69-year-old male presents with family members from his doctor's office. He apparently has had 2 days of jerking type activities to his left side more than his right especially his confronted with a pushing or pulling. He denies any headache or blurry vision he is a decreased urine output he does do abdominal peritoneal dialysis. He has a history of NPH and pulmonary fibrosis. She has no prior history of strokes he does have a shunt in place. This far as family knows no problems with that. He was seen by his doctor's today and sent here for evaluation patient also states he has slight abdominal pain no fevers chills nausea vomiting sweats. - Related Data Home Medications: Home Medications Medication Instructions Recorded Confirmed Levothyroxine Sodium [Synthroid] 75 mcg PO DAILY 08/06/16 11/29/17 Midodrine HCl [ProAmatine] 10 mg PO TID 08/06/16 11/29/17 Sevelamer [Renvela] 2,400 mg PO AC-TID 08/06/16 11/29/17 Calcitriol 0.5 mcg PO FR 02/17/17 11/29/17 Ergocalciferol (Vitamin D2) 50,000 unit PO FATIMA 02/17/17 11/29/17 [Vitamin D2] Omeprazole 20 mg PO HS 11/29/17 11/29/17 Sevelamer [Renvela] 1,600 mg PO AC-BID PRN 11/29/17 11/29/17 Allergies/Adverse Reactions: Allergies Allergy/AdvReac Type Severity Reaction Status Date / Time Penicillins Allergy Rash/Hives Verified 11/29/17 16:01 Sulfa (Sulfonamide Allergy Rash/Hives Verified 11/29/17 16:01 Antibiotics) Review of Systems ROS Statement: Those systems with pertinent positive or pertinent negative responses have been documented in the HPI. ROS Other: All systems not noted in ROS Statement are negative. General Exam - General Exam Comments Initial Comments: This a well-developed well-nourished awake alert oriented 3 male Limitations: no limitations General appearance: alert, in no apparent distress Head exam: Present: atraumatic, normocephalic, normal inspection Eye exam: Present: normal appearance, PERRL, EOMI. Absent: scleral icterus, conjunctival injection, periorbital swelling ENT exam: Present: mucous membranes dry Neck exam: Present: normal inspection. Absent: tenderness, meningismus, lymphadenopathy Respiratory exam: Present: normal lung sounds bilaterally. Absent: respiratory distress, wheezes, rales, rhonchi, stridor Cardiovascular Exam: Present: regular rate, normal rhythm, normal heart sounds. Absent: systolic murmur, diastolic murmur, rubs, gallop, clicks GI/Abdominal exam: Present: soft, normal bowel sounds, other (Dialysis catheter is in place no evidence of any drainage or discharge. Abdomen soft nontender at this time). Absent: distended, tenderness, guarding, rebound, rigid, bruit, pulsatile mass, hernia Extremities exam: Present: normal inspection, full ROM, normal capillary refill. Absent: tenderness, pedal edema, joint swelling, calf tenderness Back exam: Present: normal inspection Neurological exam: Present: alert, oriented X3, CN II-XII intact, motor sensory deficit (He does demonstrate shaking with pushing and pulling on his upper and lower extremities a seem to be symmetric at this time) Psychiatric exam: Present: normal affect, normal mood Skin exam: Present: warm, dry, intact, normal color. Absent: rash Stroke [facility] - Lab Data Result diagrams: 11/29/17 15:00 11/29/17 15:00 Lab Results 11/29/17 11/29/17 11/29/17 Range/Units 15:00 15:00 15:00 WBC 10.8 H (3.8-10.6) k/uL RBC 4.04 L (4.30-5.90) m/uL Hgb 13.4 (13.0-17.5) gm/dL Hct 40.0 (39.0-53.0) % MCV 99.0 (80.0-100.0) fL MCH 33.3 (25.0-35.0) pg MCHC 33.6 (31.0-37.0) g/dL RDW 13.2 (11.5-15.5) % Plt Count 360 (150-450) k/uL Neutrophils % 62 % Lymphocytes % 21 % Monocytes % 11 % Eosinophils % 4 % Basophils % 1 % Neutrophils # 6.7 (1.3-7.7) k/uL Lymphocytes # 2.2 (1.0-4.8) k/uL Monocytes # 1.1 H (0-1.0) k/uL Eosinophils # 0.4 (0-0.7) k/uL Basophils # 0.1 (0-0.2) k/uL Sodium 140 (137-145) mmol/L Potassium 4.5 (3.5-5.1) mmol/L Chloride 96 L (98-107) mmol/L Carbon Dioxide 28 (22-30) mmol/L Anion Gap 16 mmol/L BUN 40 H (9-20) mg/dL Creatinine 10.30 H* (0.66-1.25) mg/dL Est GFR (CKD-EPI)AfAm 5 (>60 ml/min/1.73 sqM) Est GFR (CKD-EPI)NonAf 4 (>60 ml/min/1.73 sqM) Glucose 153 H (74-99) mg/dL Calcium 9.1 (8.4-10.2) mg/dL Magnesium 1.9 (1.6-2.3) mg/dL Total Bilirubin 0.6 (0.2-1.3) mg/dL AST 67 H (17-59) U/L ALT 34 (21-72) U/L Alkaline Phosphatase 149 H (38-126) U/L Total Creatine Kinase 40 L (55-170) U/L CK-MB (CK-2) 0.8 (0.0-2.4) ng/mL CK-MB (CK-2) Rel Index 2.0 Total Protein 5.7 L (6.3-8.2) g/dL Albumin 3.0 L (3.5-5.0) g/dL Amylase <30 L (30-110) U/L Lipase 60 (23-300) U/L Urine Color Urine Appearance (Clear) Urine pH (5.0-8.0) Ur Specific [place] (1.001-1.035) Urine Protein (Negative) Urine Glucose (UA) (Negative) Urine Ketones (Negative) Urine Blood (Negative) Urine Nitrite (Negative) Urine Bilirubin (Negative) Urine Urobilinogen (<2.0) mg/dL Ur Leukocyte Esterase (Negative) Urine RBC (0-5) /hpf Urine WBC (0-5) /hpf Ur Squamous Epith Cells (0-4) /hpf Amorphous Sediment (None) /hpf 11/29/17 Range/Units 15:35 WBC (3.8-10.6) k/uL RBC (4.30-5.90) m/uL Hgb (13.0-17.5) gm/dL Hct (39.0-53.0) % MCV (80.0-100.0) fL MCH (25.0-35.0) pg MCHC (31.0-37.0) g/dL RDW (11.5-15.5) % Plt Count (150-450) k/uL Neutrophils % % Lymphocytes % % Monocytes % % Eosinophils % % Basophils % % Neutrophils # (1.3-7.7) k/uL Lymphocytes # (1.0-4.8) k/uL Monocytes # (0-1.0) k/uL Eosinophils # (0-0.7) k/uL Basophils # (0-0.2) k/uL Sodium (137-145) mmol/L Potassium (3.5-5.1) mmol/L Chloride (98-107) mmol/L Carbon Dioxide (22-30) mmol/L Anion Gap mmol/L BUN (9-20) mg/dL Creatinine (0.66-1.25) mg/dL Est GFR (CKD-EPI)AfAm (>60 ml/min/1.73 sqM) Est GFR (CKD-EPI)NonAf (>60 ml/min/1.73 sqM) Glucose (74-99) mg/dL Calcium (8.4-10.2) mg/dL Magnesium (1.6-2.3) mg/dL Total Bilirubin (0.2-1.3) mg/dL AST (17-59) U/L ALT (21-72) U/L Alkaline Phosphatase (38-126) U/L Total Creatine Kinase (55-170) U/L CK-MB (CK-2) (0.0-2.4) ng/mL CK-MB (CK-2) Rel Index Total Protein (6.3-8.2) g/dL Albumin (3.5-5.0) g/dL Amylase (30-110) U/L Lipase (23-300) U/L Urine Color Yellow Urine Appearance Cloudy (Clear) Urine pH 7.0 (5.0-8.0) Ur Specific [place] 1.012 (1.001-1.035) Urine Protein 2+ H (Negative) Urine Glucose (UA) 3+ H (Negative) Urine Ketones Negative (Negative) Urine Blood Trace H (Negative) Urine Nitrite Negative (Negative) Urine Bilirubin Negative (Negative) Urine Urobilinogen <2.0 (<2.0) mg/dL Ur Leukocyte Esterase Large H (Negative) Urine RBC 2 (0-5) /hpf Urine WBC 32 H (0-5) /hpf Ur Squamous Epith Cells 4 (0-4) /hpf Amorphous Sediment Rare H (None) /hpf - Medical Decision Making I did discuss findings with the patient family and with Dr. Negrete patient will be admitted for evaluation. He does have an elevated creatinine and he will be seen by nephrology. - EKG Data -: EKG Interpreted by Me EKG shows normal: sinus rhythm (Sinus rhythm with PACs occasional PVCs noted on the monitor ventricular rate is sinus rate of 79. Interval 120 QRS duration 72 QT since QTC of 462/529 low-voltage QRS nonspecific ST-T wave configuration and prolonged QT noted) Past Medical History Past Medical History: Renal Disease Additional Past Medical History / Comment(s): hypotension, pulmonary fibrosis, peritoneal dialysis, hepatitis C, normal pressure hydrocephalus (NPH) History of Any Multi-Drug Resistant Organisms: C-DIFF Date of last positivie culture/infection: 10/20/2016 MDRO Source:: stool Past Surgical History: Hernia Repair, Orthopedic Surgery Additional Past Surgical History / Comment(s): vp & general counsel shunt. cataract Past Anesthesia/Blood Transfusion Reactions: Previous Problems w/ Anesthesia Additional Past Anesthesia/Blood Transfusion Reaction / Comment(s): states stopped breathing during an arthroscopy yrs. ago but has had surgeries since w/ no problems Past Psychological History: No Psychological Hx Reported Smoking Status: Never smoker Past Alcohol Use History: None Reported Past Drug Use History: None Reported - Past Family History Son(s) Family Medical History: Pulmonary Embolus Course Vital Signs 11/29/17 11/29/17 11/29/17 14:32 15:38 17:13 Temperature 96.9 F L 97.8 F Pulse Rate 90 68 83 Respiratory 18 18 18 Rate Blood Pressure 95/53 110/59 111/57 O2 Sat by Pulse 94 L 95 97 Oximetry Disposition Clinical Impression: Acute on chronic renal failure, Failure to thrive Disposition: ADMITTED IP TO THIS HOSP Condition: Stable Referrals: Dat Redman DO [Primary Care Provider] - 1-2 days
[2017-11-29 15:50] LABS: Amorphous Sediment,Urine Rare /hpf; Appearance,Urine Cloudy (Clear); Bilirubin,Urine Negative (Negative); Blood,Urine Trace (Negative); Color,Urine Yellow; Glucose,Urine (UA) 3+ (Negative); Ketones,Urine Negative (Negative); Leukocyte Esterase,Urine Large (Negative); Nitrite,Urine Negative (Negative); Protein,Urine 2+ (Negative); RBC,Urine 2 /hpf (0-5); Specific Gravity,Urine 1.012 (1.001-1.035); Squamous Epithelial Cell,Urine 4 /hpf (0-4); Urobilinogen,Urine <2.0 mg/dL (<2.0); WBC,Urine 32 /hpf (0-5)
[2017-11-29 16:22] LABS: Basophils # (A) 0.1 k/uL (0-0.2); Basophils % (A) 1 %; Eosinophils # (A) 0.4 k/uL (0-0.7); Eosinophils % (A) 4 %; HGB 13.4 gm/dL (13.0-17.5); Lymphocytes # (A) 2.2 k/uL (1.0-4.8); Lymphocytes % (A) 21 %; MCH 33.3 pg (25.0-35.0); MCHC 33.6 g/dL (31.0-37.0); Mean Platelet Volume 7.4; Monocytes # (A) 1.1 k/uL (0-1.0); Monocytes % (A) 11 %; Neutrophils # (A) 6.7 k/uL (1.3-7.7); Neutrophils % (A) 62 %; Platelet Count 360 k/uL (150-450); RBC 4.04 m/uL (4.30-5.90); RDW 13.2 % (11.5-15.5); WBC 10.8 k/uL (3.8-10.6)
--- NOTE | 2017-11-29 16:28 | CT ---
EXAMINATION TYPE: CT brain wo con DATE OF EXAM: 11/29/2017 HISTORY: Uncontrolled body movement and leg weakness. CT DLP: 1461.3 mGycm. Automated Exposure Control for Dose Reduction was Utilized. TECHNIQUE: CT scan of the head is performed without contrast. COMPARISON: CT scan of brain August 06, 2016.. FINDINGS: There is no acute intracranial hemorrhage or midline shift identified. There is stable le ft parietal WAISTBAND SETTER shunt catheter with tip in the posterior aspect of the frontal horn of left ventricle. There is diffuse ventricular and sulcal prominence consistent with diffuse age-related cerebral atro phy. Ventricular size is stable. There is low-attenuation in the periventricular white matter consist ent with chronic small vessel ischemic change. The globes are intact and the visualized sinuses are clear. There is nondeformed left frontal sinus There is patchy opacification with air-fluid levels i n the left mastoids. There is vascular calcification distal internal carotid arteries bilaterally. IMPRESSION: No acute intracranial hemorrhage or midline shift. There is mild diffuse age-related ce rebral atrophy and moderate chronic small vessel ischemic change redemonstrated without significant i nterval change. There is stable ventricular size with left parietal WAISTBAND SETTER shunt catheter noted.
[2017-11-29 16:30] LABS: ALT 34 U/L (21-72); AST 67 U/L (17-59); Alkaline Phosphatase 149 U/L (38-126); Amylase <30 U/L (30-110); Anion Gap 16 mmol/L; Blood Urea Nitrogen 40 mg/dL (9-20); Calcium 9.1 mg/dL (8.4-10.2); Carbon Dioxide 28 mmol/L (22-30); Chloride 96 mmol/L (98-107); Glucose 153 mg/dL (74-99); Lipase 60 U/L (23-300); Magnesium 1.9 mg/dL (1.6-2.3); Sodium 140 mmol/L (137-145); Total Bilirubin 0.6 mg/dL (0.2-1.3); Total Protein 5.7 g/dL (6.3-8.2)
[2017-11-29 16:36] LABS: Potassium 4.5 mmol/L (3.5-5.1)
[2017-11-29 16:55] LABS: Creatine Kinase MB 0.8 ng/mL (0.0-2.4)
--- NOTE | 2017-11-29 16:58 | XR ---
EXAMINATION TYPE: XR chest 2V DATE OF EXAM: 11/29/2017 COMPARISON: 10/20/2016 HISTORY: Cough TECHNIQUE: Frontal and lateral views of the chest are obtained. FINDINGS: There is no heart failure nor confluent pneumonic infiltrate. There is some small linear d ensity at the left lung base. There is left-sided central venous catheter with the tip over the top o f the right atrium. Thoracic aorta is atheromatous. IMPRESSION: Minimal scarring or subsegmental atelectasis at the left lung base. No change.
--- NOTE | 2017-11-29 17:01 | XR ---
EXAMINATION TYPE: XR abdomen 1V DATE OF EXAM: 11/29/2017 COMPARISON: 02/17/2017 HISTORY: Abdominal pain TECHNIQUE: 3 views FINDINGS: The bowel gas pattern is normal. There is no sign of intestinal obstruction or pneumoperito neum. Fecal pattern is normal. There are no pathologic calcifications over the kidneys. There is some tubing density over the right lung base. IMPRESSION: Nonacute abdomen. There is density over the right lung base that is probably artifact.
[2017-11-29] MEDS ORDERED: NALOXONE 0.4 MG/ML 1 ML VIAL IV PRN ×2 (17:51→19:02)
[2017-11-29] MEDS ORDERED: SEVELAMER 800 MG TAB PO PRN (17:53)
[2017-11-29] MEDS ORDERED: CALCITRIOL 0.25 MCG CAP PO SCH (18:00)
[2017-11-29] MEDS ORDERED: MELATONIN 3 MG TABLET PO PRN (19:02)
[2017-11-29] MEDS ORDERED: ALPRAZolam 0.25 MG TAB PO PRN (19:02)
[2017-11-29] MEDS ORDERED: ACETAMINOPHEN TAB 325 MG TAB PO PRN (19:02)
[2017-11-29] MEDS: SODIUM CHLORIDE 0.9% 1,000 ML IV SCH (21:16)
[2017-11-29] MEDS: PANTOPRAZOLE 40 MG TABLET PO SCH (21:17)
[2017-11-29] MEDS: MIDODRINE 5 MG TAB PO SCH (22:25)
[2017-11-29] MEDS: DIALYSIS (PERIT 1.5%) 2,000 ML 30 G/2,000 ML BAG INTRAPERIT SCH (23:59)
[2017-11-30] MEDS: DIALYSIS (PERIT 1.5%) 2,000 ML 30 G/2,000 ML BAG INTRAPERIT SCH (06:08)
[2017-11-30] MEDS: MIDODRINE 5 MG TAB PO SCH ×3 (08:08→20:59)
[2017-11-30] MEDS: LEVOTHYROXINE 75 MCG TAB PO SCH (08:08)
[2017-11-30] MEDS: SEVELAMER 800 MG TAB PO SCH ×3 (08:09→16:40)
--- NOTE | 2017-11-30 11:34 | P.NPCON ---
History of Present Illness - Reason for Consult end stage renal disease - Chief Complaint Weakness - History of Present Illness Mr. Curry a 77-year-old gentleman with ESRD follows with Dr. Hutton. He is on peritoneal dialysis since 2015. He has long history of hypotension and could not tolerate hemodialysis when he was started on dialysis. He was switched over to peritoneal dialysis. He lost his urine output for the last few months and his renal functions were getting worse. He does cycler CCPD at home with roughly around 12 L and a day FILL which she empties in the day. Seems like his dialysis is not getting adequate and he started getting weak. He was also discussed about transitioned to hemodialysis but in the meanwhile he got admitted to the hospital. He was started on CAPD while in the hospital. He has nausea with mild loss of appetite. He denies any diarrhea, no fever or chills. He recently had urinary tract infection and was treated with ciprofloxacin. 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 cataract Past Anesthesia/Blood Transfusion Reactions: Previous Problems w/ Anesthesia Additional Past Anesthesia/Blood Transfusion Reaction / Comment(s): states stopped breathing during an arthroscopy yrs. ago but has had surgeries since w/ no problems Past Psychological History: No Psychological Hx Reported Smoking Status: Never smoker Past Alcohol Use History: None Reported Past Drug Use History: None Reported - Past Family History Son(s) Family Medical History: Pulmonary Embolus Medications and Allergies Home Medications Medication Instructions Recorded Confirmed Type Levothyroxine Sodium [Synthroid] 75 mcg PO DAILY 08/06/16 11/29/17 History Midodrine HCl [ProAmatine] 10 mg PO TID 08/06/16 11/29/17 History Sevelamer [Renvela] 2,400 mg PO AC-TID 08/06/16 11/29/17 History Calcitriol 0.5 mcg PO FR 02/17/17 11/29/17 History Ergocalciferol (Vitamin D2) 50,000 unit PO FATIMA 02/17/17 11/29/17 History [Vitamin D2] Omeprazole 20 mg PO HS 11/29/17 11/29/17 History Sevelamer [Renvela] 1,600 mg PO AC-BID PRN 11/29/17 11/29/17 History Allergies Allergy/AdvReac Type Severity Reaction Status Date / Time Penicillins Allergy Rash/Hives Verified 11/29/17 16:01 Sulfa (Sulfonamide Allergy Rash/Hives Verified 11/29/17 16:01 Antibiotics) Physical Exam Vitals: Vital Signs Temp Pulse Pulse Resp BP BP Pulse Ox 11/30/17 06:59 97.8 F 61 16 87/52 93 L 11/30/17 06:08 97.8 F 61 16 87/52 93 L 11/30/17 00:50 87/45 11/30/17 00:00 98.7 F 85 20 87/45 92 L 11/29/17 23:00 98.7 F 85 20 82/38 90 L 11/29/17 20:00 85 20 11/29/17 18:38 98.2 F 64 18 98/52 99 11/29/17 17:13 97.8 F 83 18 111/57 97 11/29/17 15:38 68 18 110/59 95 11/29/17 14:32 96.9 F L 90 18 95/53 94 L Intake and Output 11/29/17 11/30/17 11/30/17 22:59 06:59 14:59 Intake Total 160 Output Total 100 Balance -100 160 Intake: Intake, IV Titration 160 Amount Sodium Chloride 0.9% 1, 160 000 ml @ 20 mls/hr IV . Q24H [facility] Rx#:[id number] Output: Urine 100 Uretheral (White) 50 Other: Voiding Method Self-Catheterization Self-Catheterization CAPD CAPD # Voids 0 # Bowel Movements 0 Weight 92 kg Lying in bed no acute distress S1 S2 heard Lungs clear Abdomen, peritoneal catheter No edema Results - Lab Results Most recent lab results Calcium 9.1 mg/dL (8.4-10.2) 11/29/17 15:00 Magnesium 1.9 mg/dL (1.6-2.3) 11/29/17 15:00 11/29/17 15:00 11/29/17 15:00 Assessment and Plan Assessment: Impression: #1 generalized weakness secondary to poor clearance from dialysis. 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 Increase his fill volume from 2 L to 2.5 L. #2 check his labs including phosphorus in the morning #3 CKD medications #4 discussed plan of care with the family. If CAPD doesn't work, might need to be changed to hemodialysis for better clearance. Thank you very much for this consultation we'll follow along while he is in the hospital.
[2017-11-30] MEDS: DIALYSIS (PERIT 1.5%) 2,500 ML 37.5 G/2,500 ML BAG INTRAPERIT SCH ×2 (11:36→18:07)
[2017-11-30] MEDS ORDERED: CALCIUM GLUCONATE 1,000 MG in SODIUM CHLORIDE 0.9% 100 ML IVPB ONE (15:30)
--- NOTE | 2017-11-30 15:50 | HP ---
HISTORY AND PHYSICAL DATE OF ADMISSION: 11/29/17 PRESENTING COMPLAINT: Jumpy legs. HISTORY OF PRESENTING COMPLAINT: This is a pleasant 77-year-old patient of Dr. Redman. Chronic stable medical conditions include end-stage kidney disease, hypothyroid, osteoarthritis, pulmonary fibrosis. The patient has been on peritoneal dialysis for the last 4 years due to NSAID induced kidney injury. The patient's blood pressure normally runs low. Hence he was not a good candidate for hemodialysis. The patient also diagnosed with usual interstitial pneumonitis/fibrosis. The patient does not require oxygen. Follows with Dr. Luna for the same. The patient presented to Dr. Redman' office yesterday with his limbs were jerking. Hence patient was sent down to the ER. This only started about 4 days ago. It is not painful, but does seem to bother him. Denies any nausea, vomiting. No fevers. The patient has pain in his joints. The appetite is fair. Bowel sounds are good. REVIEW OF SYSTEMS: Constitutional tired. HEENT none. Respiratory: Baseline short of breath with exertion. Cardiovascular none. Gastrointestinal none. Genitourinary: None. Musculoskeletal pain in different joints. Dermatological and hematologic, lymphatics none. Psychiatry, neurological as above. PAST MEDICAL HISTORY: Usual interstitial pneumonitis, end-stage kidney disease on peritoneal dialysis, , hypothyroid, osteoarthritis, hepatitis C, normal-pressure hydrocephalus. PAST SURGICAL HISTORY: Hernia repair, orthopedic surgery, MANAGER RADIO shunt, cataract. SOCIAL HISTORY: Does not smoke or drink alcohol. . FAMILY HISTORY: Pulmonary embolism. HOME MEDICATIONS: 1. Renvela 600 mg a.c. b.i.d. p.r.n. 2100 mg p.o. a.c. t.i.d. 2. Omeprazole 20 mg q.h.s. 3. Midodrine 10 mg p.o. t.i.d. 4. Synthroid 75 mcg a day. 5. Vitamin D2 50,000 units p.o. on Saturday. 6. Calcitriol 0.5 mcg p.o. on Saturday. ALLERGY: TO PENICILLIN AND SULFUR. PHYSICAL EXAMINATION: Temperature 97.8, pulse 61, respirations 16, blood pressure 111/52, pulse ox 93% on room air. GENERAL APPEARANCE: Average build, lying in bed, awake. Eyes pupils equal. Conjunctivae normal. HEENT: External appearance of nose and ears normal. Oral cavity normal. Neck JVD not raised. Mass not palpable. Respiratory effort normal. LUNGS: Diminished breath sounds. Cardiovascular 1st and second sounds normal. No edema. ABDOMEN: Slightly distended. PD catheter in place. Liver and spleen not palpable. Lymphatics: No lymph nodes palpable in the neck and axillae. PSYCHIATRY: Alert and oriented x3. Mood and affect normal. Neurological: Pupils equal. Cranial nerves grossly intact. Power and sensation grossly intact. INVESTIGATIONS: White count 10.8, hemoglobin 13.4, potassium 4.5, BUN 40, creatinine 10.30, albumin 3, ionized calcium 4.5. ASSESSMENT: 1. Myoclonic jerks, generalized could be from hypocalcemia. Patient's ionized calcium is just on the lower level of normal, borderline. 2. End-stage kidney disease on peritoneal dialysis. 3. Not fully effective peritoneal dialysis, the patient creatinine is about 10.3. 4. Usual interstitial pneumonitis. 5. Primary osteoarthritis multiple joints. 6. Hypoalbuminemia from end-stage kidney disease. PLAN: Nephrology was consulted who did change patient's peritoneal dialysis solution. We will give the patient 1 dose of IV calcium gluconate to build up the calcium. We will check patient's phosphorus and also add some Mirapex. ADVANCED CARE PLANNING: The patient and wanted to have a discussion about hospice. Did have a long discussion with them. At this point, the patient is able to function at least, able to get around, though some limitation from peritoneal dialysis. Is not in any pain and is not short of breath. No distress of any sort. I did suggest that if at any time it is actually significantly affected, he does enjoy time with family and grandchildren. I think at this point, I would defer the hospice for some time at least until things become out of control. The patient agrees with the same. Additional time for advanced care planning was about 20-25 minutes in addition to the H and P. Copy to Dr. Redman. ZAK / VALENTE: [id number] /
[2017-11-30] MEDS: PRAMIPEXOLE 0.125 MG TAB PO SCH ×2 (16:40→20:58)
[2017-11-30] MEDS: SODIUM CHLORIDE 0.9% 1,000 ML IV SCH (18:08)
[2017-11-30] MEDS: PANTOPRAZOLE 40 MG TABLET PO SCH (20:58)
[2017-11-30] MEDS: ONDANSETRON 4 MG/2 ML VIAL IVP PRN (23:25)
[2017-12-01] MEDS: DIALYSIS (PERIT 1.5%) 2,500 ML 37.5 G/2,500 ML BAG INTRAPERIT SCH ×4 (06:00→18:21)
[2017-12-01] MEDS: LEVOTHYROXINE 75 MCG TAB PO SCH (06:34)
[2017-12-01 08:39] LABS: Calcium 8.6 mg/dL (8.4-10.2); Phosphorus 4.4 mg/dL (2.5-4.5); Potassium 4.1 mmol/L (3.5-5.1)
[2017-12-01] MEDS: PRAMIPEXOLE 0.125 MG TAB PO SCH ×2 (08:43→17:25)
[2017-12-01] MEDS: MIDODRINE 5 MG TAB PO SCH ×3 (08:43→21:34)
[2017-12-01] MEDS: SEVELAMER 800 MG TAB PO SCH ×3 (08:43→17:24)
[2017-12-01] MEDS ORDERED: ERGOCALCIFEROL 50,000 UNIT CAP PO SCH (09:00)
--- NOTE | 2017-12-01 09:57 | P.PN ---
Subjective Progress Note Date: 12/01/17 Seen and examined for the follow-up of ESRD. Feels better than yesterday today. Tolerating diet. No nausea vomiting or diarrhea. Ongoing peritoneal dialysis. Objective - Vital Signs Vital signs: Vital Signs Temp 98.2 F 12/01/17 06:28 Pulse 66 12/01/17 06:28 Resp 20 12/01/17 06:28 BP 80/46 12/01/17 06:28 Pulse Ox 90 L 12/01/17 06:28 Intake & Output 11/30/17 12/01/17 12/01/17 18:59 06:59 18:59 Intake Total 160 Output Total 100 Balance 60 Weight 94.5 kg Intake: Intake, IV Titration 160 Amount Sodium Chloride 0.9% 1, 160 000 ml @ 20 mls/hr IV . Q24H LOTUS Rx#:[id number] Output: Urine 100 Uretheral (White) 50 Other: Voiding Method Self-Catheterization Self-Catheterization CAPD CAPD # Voids 1 - Exam Lying in bed no acute distress S1-S2 heard Lungs clear Abdomen no tenderness No edema - Labs CBC & Chem 7: 11/29/17 15:00 12/01/17 07:52 Labs: Abnormal Lab Results - Last 24 Hours (Table) 12/01/17 Range/Units 07:52 BUN 40 H (9-20) mg/dL Creatinine 10.45 H* (0.66-1.25) mg/dL Glucose 152 H (74-99) mg/dL Assessment and Plan Assessment: Impression: #1 generalized weakness secondary to poor clearance from dialysis. 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 Recommendations: #1 continue with CCPD for now.fill volume increased to 2.5 L yesterday. #2 creatinine still the same. Feeling better than yesterday. #3 CKD medications #4 discussed plan of care with the family. If CAPD doesn't work, might need to be changed to hemodialysis for better clearance. He is very weak to go to clinic 3 times a week as per the family and they preferred doing dialysis at home. We will continue with peritoneal dialysis today and and reevaluate tomorrow based on his clinical status for consideration of heme if not better. #4 agree with deferring hospice evaluation at this point.
[2017-12-01] MEDS: SODIUM CHLORIDE 0.9% 1,000 ML IV SCH (18:21)
--- NOTE | 2017-12-01 18:30 | PN ---
PROGRESS NOTE DATE OF SERVICE: 12/01/17. PRESENTING COMPLAINT: Weak and tired. INTERVAL HISTORY: This patient presented with dialysis not being effective, weak, tired, run down, and myoclonic jerks. The patient is found to be hypercalcemic. Did get an extra dose of calcium gluconate and also put him on Mirapex. Leg jerking is actually better. The patient's dialysate solution was changed. The patient is tolerating a diet. at the bedside. REVIEW OF SYSTEMS: Done for constitutional, cardiovascular, GI, pulmonary; relevant findings as above. CURRENT MEDICATIONS: Reviewed that include Mirapex and using 1.5 dextrose solution. EXAMINATION: Temperature 97.6, pulse 77, respirations 16, blood pressure 95/59, pulse ox 98% on room air. GENERAL APPEARANCE: Lying in bed, tired appearing. EYES: Pupils equal. Conjunctivae pale. HEENT: External nose and ears normal. Oral cavity normal. NECK: JVD not raised. Mass not palpable. RESPIRATORY: Effort normal. Lungs, decreased breath sounds. CARDIOVASCULAR: First and second sounds, no edema. ABDOMEN: Distended, soft. PD catheter in place. LYMPHATIC: No lymph node palpable in neck or axillae. PSYCHIATRY: Alert and oriented x3. Mood and affect normal. INVESTIGATIONS: Potassium 4.1, BUN 40, creatinine 10.45, phosphorus is 4.4. ASSESSMENT: 1. Myoclonic jerks could be contributing from hypocalcemia, could be electrolytes could be off including uremia and in increased creatinine. 2. End-stage kidney disease on peritoneal dialysis, not very effective. Solution has been changed. 3. Usual interstitial pneumonitis. 4. Primary osteoarthritis of multiple joints. 5. Hypoalbuminemia from end-stage kidney disease. PLAN: Continue with the new dialysate for CAPD. Nephrology wishes to watch the patient at least a couple of days to see how he does. The current dose of Mirapex is working. Will leave the patient on the same and follow. MMODL / IJN: [id number] /
[2017-12-01] MEDS: PANTOPRAZOLE 40 MG TABLET PO SCH (21:33)
[2017-12-01] MEDS: LACTULOSE 20 GM/30 ML CUP PO SCH (21:35)
[2017-12-02] MEDS: DIALYSIS (PERIT 1.5%) 2,500 ML 37.5 G/2,500 ML BAG INTRAPERIT SCH ×6 (00:11→23:46)
[2017-12-02] MEDS: PRAMIPEXOLE 0.125 MG TAB PO SCH ×4 (00:15→20:04)
[2017-12-02] MEDS: LEVOTHYROXINE 75 MCG TAB PO SCH (06:26)
[2017-12-02] MEDS: SEVELAMER 800 MG TAB PO SCH ×3 (08:09→16:47)
[2017-12-02] MEDS: LACTULOSE 20 GM/30 ML CUP PO SCH (08:10)
[2017-12-02 08:58] VITALS: RESP 16
[2017-12-02 09:10] LABS: Calcium 8.3 mg/dL (8.4-10.2); Potassium 4.4 mmol/L (3.5-5.1)
--- NOTE | 2017-12-02 09:29 | P.PN ---
Subjective Patient is seen in follow-up for end-stage renal disease. He is maintained on peritoneal dialysis. He is currently receiving 2.5 L exchanges every 6 hours. Patient presented with myoclonic jerking which is improved. His blood pressures tend to run low and are in the systolic 90s. He admits to some wheezing today. Denies chest pain. Oral intake is fair. No vomiting or diarrhea. Vital signs are stable. General: The patient appeared well nourished and normally developed. HEENT: Head exam is unremarkable. Neck is without jugular venous distension. LUNGS: Lungs are clear to auscultation and percussion. Breath sounds decreased. HEART: Rate and Rhythm are regular. First and second heart sounds normal. No murmurs, rubs or gallops. ABDOMEN: Abdominal exam reveals normal bowel sounds. Non-tender and non- distended. No evidence of peritonitis. EXTREMITITES: No clubbing, cyanosis, or edema. Objective - Vital Signs Vital signs: Vital Signs Temp 96.9 F L 12/02/17 07:00 Pulse 71 12/02/17 07:00 Resp 16 12/02/17 07:00 BP 91/54 12/02/17 07:00 Pulse Ox 92 L 12/02/17 07:00 Intake & Output 12/01/17 12/02/17 12/02/17 18:59 06:59 18:59 Intake Total 300 Balance 300 Weight 98.5 kg Intake: Oral 300 Other: Voiding Method Self-Catheterization Self-Catheterization CAPD CAPD # Voids 0 0 - Labs CBC & Chem 7: 11/29/17 15:00 12/02/17 08:24 Labs: Abnormal Lab Results - Last 24 Hours (Table) 12/01/17 12/02/17 Range/Units 07:52 08:24 Sodium 136 L (137-145) mmol/L Chloride 94 L (98-107) mmol/L BUN 40 H (9-20) mg/dL Creatinine 9.89 H* (0.66-1.25) mg/dL Glucose 181 H (74-99) mg/dL Calcium 8.3 L (8.4-10.2) mg/dL PTH Intact 188.9 H (14.0-72.0) pg/mL Assessment and Plan Plan: Assessment: #1. End-stage renal disease maintained on peritoneal dialysis. #2. Chronic hypotension maintained on midodrine. #3. Myoclonic jerking improved with Mirapex. #4. Chronic kidney disease mineral bone disease maintained on Renvela. #5. Generalized weakness. Plan: I will change the frequency of PD exchanges to every 4 hours. I will discuss with PD nurses outpatient to add a daytime exchange for better clearance. Patient will not be able to tolerate hemodialysis due to hypotension. When he was on hemodialysis in the past, he had multiple syncopal episodes.
[2017-12-02] MEDS: MIDODRINE 5 MG TAB PO SCH ×3 (09:42→16:47)
[2017-12-02] MEDS: SODIUM CHLORIDE 0.9% 1,000 ML IV SCH (17:45)
--- NOTE | 2017-12-02 18:34 | PN ---
PROGRESS NOTE DATE OF SERVICE: 12/02/2017 PRESENTING COMPLAINT: Weak and tired. INTERVAL HISTORY: This patient presented with CAPD dialysis not being effective, some jerkiness. Patient's calcium was replaced. He was put on Mirapex. Doing better, though feels rather weak and tired. Physical therapy was ordered, according to the nurse, and also patient's dialysate was changed today to every 4 hours. REVIEW OF SYSTEMS: Done for constitutional, cardiovascular, GI, pulmonary; relevant findings as above. CURRENT MEDICATIONS: Reviewed. They include Mirapex. PHYSICAL EXAMINATION: Temperature 96.9, pulse 71, respiration 16, blood pressure 91/54, pulse ox 92% on 2 L. GENERAL APPEARANCE: Lying in bed, tired-appearing. EYES: Pupils equal. Conjunctivae normal. HEENT: External appearance of nose and ears normal. Oral cavity normal. NECK: JVD not raised. Mass not palpable. RESPIRATORY: Effort normal. LUNGS: Some decreased breath sounds. CARDIOVASCULAR: First and second sounds normal. No edema. ABDOMEN: Soft, nontender. Liver and spleen not palpable. PSYCHIATRY: Alert and oriented x3. Mood and affect normal. INVESTIGATIONS: Potassium 4.4, BUN 40, creatinine 9.89, calcium 8.3. Patient's parathyroid hormone is actually 188.9. ASSESSMENT: 1. Myoclonic jerks; could be from hypocalcemia and contribution from uremia; doing better after getting IV calcium gluconate. 2. End-stage kidney disease, on peritoneal dialysis, not very effective. Solution has been changed. 3. Usual interstitial pneumonitis. 4. Primary osteoarthritis in multiple joints. 5. Hypoalbuminemia from end-stage kidney disease. 6. Secondary hyperparathyroidism. Will discuss with Dr. Cabrera about changing the calcium binder to a calcium supplement. MMODL / IJN: [id number] /
[2017-12-02] MEDS: PANTOPRAZOLE 40 MG TABLET PO SCH (20:04)
[2017-12-03] MEDS: DIALYSIS (PERIT 1.5%) 2,500 ML 37.5 G/2,500 ML BAG INTRAPERIT SCH ×3 (03:58→13:09)
[2017-12-03 06:22] VITALS: BP 114/45; PULSE 71; TEMP 97.5
[2017-12-03] MEDS: LEVOTHYROXINE 75 MCG TAB PO SCH (06:25)
[2017-12-03] MEDS: ONDANSETRON 4 MG/2 ML VIAL IVP PRN (08:07)
[2017-12-03] MEDS: SEVELAMER 800 MG TAB PO SCH ×2 (09:46→12:17)
[2017-12-03] MEDS: MIDODRINE 5 MG TAB PO SCH ×2 (09:47→12:17)
[2017-12-03] MEDS: PRAMIPEXOLE 0.125 MG TAB PO SCH (09:47)
[2017-12-03] MEDS: LACTULOSE 20 GM/30 ML CUP PO SCH (09:47)
--- NOTE | 2017-12-03 14:54 | P.CNPUL ---
History of Present Illness Consult date: 12/03/17 Requesting physician: Magdiel Ngerete Reason for consult: other (History of interstitial lung disease and pulmonary fibrosis.) Chief complaint: Abnormal muscle, jerking movements. History of present illness: This is a 69-year-old white male, familiar to our service, patient normally sees Dr. Luna. Patient is known to have history of biopsy-proven usual interstitial pneumonitis, this was actually a thoracoscopic wedge lung biopsy done in early 2016, and was read by Dr. Terrance Haq at the [facility] as consistent with usual interstitial pneumonitis. Although the patient's CT of the chest and chest x-ray did not actually reflect severe interstitial lung disease or classic findings of a UIP. At any rate patient has been seen by Dr. Luna, and supposedly his pulmonary status has been improving over the last one year although he is not receiving any specific treatment for his pulmonary fibrosis. At any rate patient was admitted this time with mostly myoclonic jerks, felt to be related to his uremia, could also be related to hypocalcemia. Patient is known to have history of end-stage kidney disease, on peritoneal dialysis. I was asked to see the patient on consultation for his underlying interstitial lung disease which is clearly not quite impressive based on the chest x-ray findings, CT of the chest findings, and clinical findings except for minimal Velcro crackles heard at the base of his lungs on physical examination. Patient denies any headaches, no blurred vision, no dizziness, no shortness of breath, he does have occasional cough, no nausea no vomiting, no chest pain, no dysuria and no frequency no urgency. Patient is compliant with his peritoneal dialysis on a regular basis. Review of Systems 14 point review of systems were obtained, please refer to pertinent positives and negatives in HPI otherwise remaining systems are negative. Past Medical History Past Medical History: Hypertension, Renal Disease Additional Past Medical History / Comment(s): hypotension, pulmonary fibrosis, peritoneal dialysis, hepatitis C, normal pressure hydrocephalus (NPH) History of Any Multi-Drug Resistant Organisms: C-DIFF Date of last positivie culture/infection: 10/20/2016 MDRO Source:: stool Past Surgical History: Hernia Repair, Orthopedic Surgery Additional Past Surgical History / Comment(s): vp research shunt. cataract Past Anesthesia/Blood Transfusion Reactions: Previous Problems w/ Anesthesia Additional Past Anesthesia/Blood Transfusion Reaction / Comment(s): states stopped breathing during an arthroscopy yrs. ago but has had surgeries since w/ no problems Past Psychological History: No Psychological Hx Reported Smoking Status: Never smoker Past Alcohol Use History: None Reported Past Drug Use History: None Reported - Past Family History Son(s) Family Medical History: Pulmonary Embolus Medications and Allergies Home Medications Medication Instructions Recorded Confirmed Type Levothyroxine Sodium [Synthroid] 75 mcg PO DAILY 08/06/16 11/29/17 History Midodrine HCl [ProAmatine] 10 mg PO TID 08/06/16 11/29/17 History Sevelamer [Renvela] 2,400 mg PO AC-TID 08/06/16 11/29/17 History Calcitriol 0.5 mcg PO FR 02/17/17 11/29/17 History Ergocalciferol (Vitamin D2) 50,000 unit PO FATIMA 02/17/17 11/29/17 History [Vitamin D2] Omeprazole 20 mg PO HS 11/29/17 11/29/17 History Sevelamer [Renvela] 1,600 mg PO AC-BID PRN 11/29/17 11/29/17 History Pramipexole [Mirapex] 0.125 mg PO TID #90 tab 12/03/17 Rx Sennosides-Docusate Sodium 1 tab PO DAILY #30 tablet 12/03/17 Rx [Senokot-S] Allergies Allergy/AdvReac Type Severity Reaction Status Date / Time Penicillins Allergy Rash/Hives Verified 11/29/17 16:01 Sulfa (Sulfonamide Allergy Rash/Hives Verified 11/29/17 16:01 Antibiotics) Physical Exam Vitals: Vital Signs Temp Pulse Pulse Resp BP BP Pulse Ox 12/03/17 10:39 93 L 12/03/17 06:21 97.5 F L 71 16 114/45 91 L 12/02/17 23:00 97.3 F L 68 16 118/64 91 L 12/02/17 17:42 97.7 F 80 16 110/53 94 L 12/02/17 15:58 16 12/02/17 15:00 96.1 F L 56 L 16 113/60 91 L Intake and Output 12/02/17 12/03/17 12/03/17 22:59 06:59 14:59 Output Total 800 Balance -800 Output: Urine 800 Straight 400 Uretheral (White) 400 Other: Voiding Method Self-Catheterization Self-Catheterization CAPD CAPD # Voids 0 0 2 # Bowel Movements 1 Weight 98.5 kg General appearance: Physical exam revealed a 77-year-old white male, pleasant, in no distress. Head exam: Present: atraumatic, normocephalic, normal inspection Eye exam: PERRLA, EOMI, ENT exam: Moist mucous membranes. Neck exam: Neck is supple no neck masses no JVD Respiratory exam: Symmetrical chest expansion, Velcro rales and crackles heard at the bases bilaterally. Cardiovascular Exam: Normal S1 and S2, no S3 gallop. No murmur. GI/Abdominal exam: soft, normal bowel sounds, other (Dialysis catheter is in place no evidence of any drainage or discharge. Abdomen soft nontender at this time). No tenderness, no rebound, no guarding. Extremities exam: No clubbing, no edema, no cyanosis. Back exam: Present: normal inspection Neurological exam: Alert, oriented 3, no gross focal neurologic deficit. Psychiatric exam: Normal mood affect and mental status examination. Skin exam: Present: warm, dry, intact, normal color. Results - Laboratory Findings CBC and BMP: 11/29/17 15:00 12/02/17 08:24 Abnormal lab findings: Abnormal Labs 11/29/17 11/29/17 11/29/17 15:00 15:00 15:00 WBC 10.8 H RBC 4.04 L Monocytes # 1.1 H Sodium Chloride 96 L BUN 40 H Creatinine 10.30 H* Glucose 153 H Calcium AST 67 H Alkaline Phosphatase 149 H Total Creatine Kinase 40 L Total Protein 5.7 L Albumin 3.0 L Amylase <30 L PTH Intact Urine Protein Urine Glucose (UA) Urine Blood Ur Leukocyte Esterase Urine WBC Amorphous Sediment 11/29/17 12/01/17 12/01/17 15:35 07:52 07:52 WBC RBC Monocytes # Sodium Chloride BUN 40 H Creatinine 10.45 H* Glucose 152 H Calcium AST Alkaline Phosphatase Total Creatine Kinase Total Protein Albumin Amylase PTH Intact 188.9 H Urine Protein 2+ H Urine Glucose (UA) 3+ H Urine Blood Trace H Ur Leukocyte Esterase Large H Urine WBC 32 H Amorphous Sediment Rare H 12/02/17 08:24 WBC RBC Monocytes # Sodium 136 L Chloride 94 L BUN 40 H Creatinine 9.89 H* Glucose 181 H Calcium 8.3 L AST Alkaline Phosphatase Total Creatine Kinase Total Protein Albumin Amylase PTH Intact Urine Protein Urine Glucose (UA) Urine Blood Ur Leukocyte Esterase Urine WBC Amorphous Sediment - Diagnostic Findings Chest x-ray: image reviewed (Minimal subsegmental atelectasis at the bases and scarring noted.) Assessment and Plan Assessment: Impression: History of interstitial lung disease, biopsy-proven to be usual interstitial pneumonitis, however the clinical history is more suggestive of nonspecific interstitial pneumonitis. Multiple comorbidities including myoclonic jerks, resolved at present, history of end-stage kidney disease on peritoneal dialysis, Recommendation: I fully agree with the present treatment plan, discussed with the patient and his the previous lung biopsy report, and my clinical impression, again I feel this is not truly consistent with UIP. Time will eventually tell whether this is true UIP or nsip. Patient will have follow-up with Dr. Luna postdischarge. Time with Patient: Greater than 30
--- NOTE | 2017-12-03 17:11 | PN ---
PROGRESS NOTE Patient is seen for followup for end-stage renal disease. He was admitted to the hospital with myoclonic jerks, which have improved. His creatinine was elevated at 10.3. It is now down to 9.89. He is receiving dialysis every 4 hours. Patient was scheduled to have an increase in his prescription as outpatient. He did have a urinary tract infection recently and was treated with Cipro. He is currently being discharged today. On examination, blood pressure was 118/64, heart rate 68 per minute. He is afebrile. EXAMINATION OF THE HEART: S1, S2. EXAMINATION OF LUNGS: Bilateral breath sounds are heard. ABDOMEN: Soft, non-tender. Examination of lower extremities shows no significant edema. Labs show sodium 136, potassium 4.4, BUN 40, serum creatinine 9.89. ASSESSMENT: 1. End-stage renal disease, on peritoneal dialysis. Will increase the prescription as outpatient for more aggressive dialysis. 2. Recent urinary tract infection, status post Cipro. 3. Chronic kidney disease mineral bone disorder. 4. 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 PLAN: Patient is stable for discharge. Will increase his dialysis as outpatient. MMODL / IJN: [id number] /
--- NOTE | 2017-12-03 22:11 | DS ---
DISCHARGE SUMMARY DATE OF ADMISSION: 11/29/17 DATE OF DISCHARGE: December 03, 2017. FINAL DIAGNOSES: 1. Myoclonic jerks could be from hypocalcemia and contribution from uremia, present on admission. 2. End-stage kidney disease on peritoneal dialysis, not effective, present on admission causing medical debility. 3. Usual interstitial pneumonitis. 4. Primary osteoarthritis multiple joints. 5. Hypoalbuminemia from end-stage kidney disease. 6. Secondary hyperparathyroidism. 7. Normal-pressure hydrocephalus with UI UX ENGINEER shunt. 8. Medical debility. HOSPITAL COURSE: This patient presented weak, tired, myoclonic jerks. The patient's calcium was on the lower side of normal, was given IV calcium gluconate. Also was given Mirapex to which his jerkiness improved. The patient's peritoneal dialysis daytime was not being that effective and this solution was changed and creatinine started to come down. The patient is rather weak and tired and rehab was suggested, but the and the patient decided to go home as they have ample support at home. The patient is seen by Physical therapy. From a pulmonary standpoint patient is rather stable. Seen by Dr. Laureano today. The patient normally follows with Dr. Luna as an outpatient. I discussed with Dr. Laureano. Also discussed with the patient and . Questions were answered. CONSULTATION: Dr. Laureano from Pulmonary. Dr. Cabrera/Dr. Hutton from nephrology. DISCHARGE MEDICATIONS: 1. Synthroid 25 mcg p.o. daily. 2. Midodrine 10 mg p.o. t.i.d. 3. Renvela 24 mg p.o. a.c. t.i.d. 4. Calcitriol 0.5 mcg p.o. on Saturday. 5. Vitamin D2 03548 units on Saturday. 6. Omeprazole 20 mg p.o. q.h.s. 7. Renvela 600 mg a.c. b.i.d. p.r.n. 8. Mirapex 0.125 mg p.o. t.i.d. 9. Senokot S 1 tablet p.o. daily. DISPOSITION: Home. Follow up with Dr. Hutton in 1 week, follow up with Dr. Redman on December 10, 2017, follow up with Dr. Luna on December 19 2017. Discussion and discharge planning more than [address] Redman. MMRACHELL / ISAURAN: [id number] /
== END 2017-12-03 14:30 | disposition home or self-care (01) | DRG 682 ==
LOC: EC 14:29 → 4MS4W 18:16
PROVIDERS: ADMIT Hospitalist; ATTEND Hospitalist
DX: I12.0 Hypertensive chronic kidney disease with stage 5 chronic kidney disease or end stage renal disease (principal); N18.6 End stage renal disease; I95.89 Other hypotension; E88.09 Other disorders of plasma-protein metabolism, not elsewhere classified; E83.51 Hypocalcemia; G91.2 (Idiopathic) normal pressure hydrocephalus; G25.3 Myoclonus; N25.81 Secondary hyperparathyroidism of renal origin; J84.10 Pulmonary fibrosis, unspecified; J84.89 Other specified interstitial pulmonary diseases; D63.1 Anemia in chronic kidney disease; E03.9 Hypothyroidism, unspecified; M15.9 Polyosteoarthritis, unspecified; M89.9 Disorder of bone, unspecified; Z79.899 Other long term (current) drug therapy; Z98.2 Presence of cerebrospinal fluid drainage device; Z99.2 Dependence on renal dialysis; Z88.0 Allergy status to penicillin; Z88.2 Allergy status to sulfonamides; Z79.890 Hormone replacement therapy; Z86.19 Personal history of other infectious and parasitic diseases; B19.20 Unspecified viral hepatitis C without hepatic coma; Z98.49 Cataract extraction status, unspecified eye
CPT/HCPCS: 36415; 70450; 71046; 74018; 80048; 80053; 81001; 82150; 82330; 82550; 82553; 83690; 83735; 83970; 84100; 85025; 93005; 99285

== ENCOUNTER → 2017-12-23 | Outpatient (CLI) | payer MEDICARE ==
[2017-12-23 11:08] LABS: T4, Free (Free Thyroxine) 1.55 ng/dL (0.78-2.19)
== END | disposition home or self-care (01) ==
LOC: LABWHC1 09:52
PROVIDERS: ATTEND Family Medicine
DX: E03.9 Hypothyroidism, unspecified (principal)
CPT/HCPCS: 36415; 84439; 84443

== ENCOUNTER 2018-01-14 11:59 | Inpatient (IN) | payer MEDICARE ==
[2018-01-14] MEDS ORDERED: cefTRIAXone IN SWFI 1,000 MG/10 ML SYRINGE IVP STA (12:18)
--- NOTE | 2018-01-14 12:25 | ED ---
Abdominal Pain HPI - General Chief Complaint: Abdominal Pain Stated Complaint: BLADDER INFECTION Time Seen by Provider: 01/14/18 12:10 Source: patient, RN notes reviewed, old records reviewed Mode of arrival: wheelchair Limitations: no limitations - History of Present Illness Initial Comments: This patient's a 77-year-old male presents emergency Department with his chief complaint of urinary tract infection, and sent in by his lockmaker Dr. Hutton. Patient is in stage V kidney failure. He receives peritoneal dialysis in the evenings. Patient's reports he's been increasingly confused. She states that he has unplugged himself from the machine last night when he was receiving his dialysis. Patient states that he has no significant pain. He denies any chest pain or shortness of breath. He does report his distention in the abdomen as he did not completely entire dialysis. Patient reports that he has been on Cipro for a urinary tract infection for the past month. He reports he had initial round of that and was feeling better and is currently taking again. He was sent in for IV antibiotics and further evaluation for the urinary tract infection. Patient reports no fevers. He does have a history of hypotension. They report that it is typically 90/ 50s.Patient has a history of pulmonary fibrosis, hepatitis C, normal pressure hydrocephalus. Patient has a CONDUIT INSTALLER shunt. - Related Data Home Medications Medication Instructions Recorded Confirmed Levothyroxine Sodium [Synthroid] 75 mcg PO DAILY 08/06/16 01/14/18 Midodrine HCl [ProAmatine] 10 mg PO TID 08/06/16 01/14/18 Sevelamer [Renvela] 2,400 mg PO AC-TID 08/06/16 01/14/18 Calcitriol 0.5 mcg PO FR 02/17/17 01/14/18 Ergocalciferol (Vitamin D2) 50,000 unit PO FATIMA 02/17/17 01/14/18 [Vitamin D2] Omeprazole 20 mg PO HS 11/29/17 01/14/18 Sevelamer [Renvela] 1,600 mg PO AC-BID PRN 11/29/17 01/14/18 Ciprofloxacin HCl [Cipro] 750 mg PO BID 01/14/18 01/14/18 Previous Rx's Medication Instructions Recorded Pramipexole [Mirapex] 0.125 mg PO TID #90 tab 12/03/17 Sennosides-Docusate Sodium 1 tab PO DAILY #30 tablet 12/03/17 [Senokot-S] Allergies Allergy/AdvReac Type Severity Reaction Status Date / Time Penicillins Allergy Rash/Hives Verified 01/14/18 12:30 Sulfa (Sulfonamide Allergy Rash/Hives Verified 01/14/18 12:30 Antibiotics) Review of Systems ROS Statement: Those systems with pertinent positive or pertinent negative responses have been documented in the HPI. ROS Other: All systems not noted in ROS Statement are negative. Past Medical History Past Medical History: Hypertension, Renal Disease Additional Past Medical History / Comment(s): hypotension, pulmonary fibrosis, peritoneal dialysis, hepatitis C, normal pressure hydrocephalus (NPH) History of Any Multi-Drug Resistant Organisms: C-DIFF Date of last positivie culture/infection: 10/20/2016 MDRO Source:: stool Past Surgical History: Hernia Repair, Orthopedic Surgery Additional Past Surgical History / Comment(s): category planner shunt. cataract Past Anesthesia/Blood Transfusion Reactions: Previous Problems w/ Anesthesia Additional Past Anesthesia/Blood Transfusion Reaction / Comment(s): states stopped breathing during an arthroscopy yrs. ago but has had surgeries since w/ no problems Past Psychological History: No Psychological Hx Reported Smoking Status: Never smoker Past Alcohol Use History: None Reported Past Drug Use History: None Reported - Past Family History Son(s) Family Medical History: Pulmonary Embolus General Exam - General Exam Comments Initial Comments: 77-year-old male. Patient appears weak. Limitations: no limitations General appearance: alert, in no apparent distress Head exam: Present: atraumatic, normocephalic, normal inspection Eye exam: Present: normal appearance, PERRL, EOMI. Absent: scleral icterus, conjunctival injection, periorbital swelling ENT exam: Present: normal exam, mucous membranes moist. Absent: normal oropharynx (Dry oropharynx) Neck exam: Present: normal inspection. Absent: tenderness, meningismus, lymphadenopathy Respiratory exam: Present: normal lung sounds bilaterally. Absent: respiratory distress, wheezes, rales, rhonchi, stridor Cardiovascular Exam: Present: regular rate, normal rhythm, normal heart sounds. Absent: systolic murmur, diastolic murmur, rubs, gallop, clicks GI/Abdominal exam: Present: soft, tenderness (Distended abdomen with diffuse tenderness.), normal bowel sounds, other (Well-appearing site of the peritoneal dialysis strain.). Absent: distended, guarding, rebound, rigid Extremities exam: Present: normal inspection, full ROM, normal capillary refill. Absent: tenderness, pedal edema, joint swelling, calf tenderness Back exam: Present: normal inspection Neurological exam: Present: alert, oriented X3, CN II-XII intact Course Vital Signs 01/14/18 01/14/18 01/14/18 12:03 13:08 13:49 Temperature 98.0 F Pulse Rate 85 96 72 Respiratory 18 18 18 Rate Blood Pressure 95/42 95/53 103/55 O2 Sat by Pulse 96 97 98 Oximetry 01/14/18 14:16 Temperature Pulse Rate 71 Respiratory 18 Rate Blood Pressure 101/58 O2 Sat by Pulse 96 Oximetry - Reevaluation(s) Reevaluation #1: 01/14/18 14:38 was reevaluated and resting comfortably in bed. He reports he is feeling well. Denies any pain. He requests a turkey sandwich. When I was in the room patient's also states that they never had a follow-up appointment with his neurologist to evaluated him his last visit. He requests to see him again. Discussed the request can be further facilitated by attending physician. Medical Decision Making - Medical Decision Making 77-year-old male with a history of peritoneal dialysis and chronic kidney disease presents for evaluation for failed outpatient treatment for urinary tract infection. Urinalysis at that time was positive for infection for 180 white blood cells. Culture obtained. He was given a gram of Rocephin emergency department. Given aggressive fluid I duration blood pressure was low at 90/50. Patient received 1 L of fluids and then it is elevated 100/60. Patient had an elevated lactic acid of 2.7. Subsequent liter of fluid was given. White blood cell count normal. No fever. EKG was reviewed no acute changes. Chest x-ray shows chronic changes. KUB shows no acute abdomen maladies. Patient family informed of these results. At this time we will that the patient prior outpatient treatment for UTI. Culture pending. Consult infectious disease. We'll consult patient's lockmaker. - Lab Data Result diagrams: 01/14/18 13:00 01/14/18 13:00 Lab Results 01/14/18 01/14/18 01/14/18 Range/Units 13:00 13:00 13:00 WBC 8.5 (3.8-10.6) k/uL RBC 4.13 L (4.30-5.90) m/uL Hgb 13.4 (13.0-17.5) gm/dL Hct 40.7 (39.0-53.0) % MCV 98.4 (80.0-100.0) fL MCH 32.4 (25.0-35.0) pg MCHC 32.9 (31.0-37.0) g/dL RDW 13.7 (11.5-15.5) % Plt Count 332 (150-450) k/uL Neutrophils % 57 % Lymphocytes % 21 % Monocytes % 13 % Eosinophils % 6 % Basophils % 1 % Neutrophils # 4.9 (1.3-7.7) k/uL Lymphocytes # 1.8 (1.0-4.8) k/uL Monocytes # 1.1 H (0-1.0) k/uL Eosinophils # 0.5 (0-0.7) k/uL Basophils # 0.1 (0-0.2) k/uL PT (9.0-12.0) sec INR (<1.2) APTT (22.0-30.0) sec Sodium 137 (137-145) mmol/L Potassium 3.8 (3.5-5.1) mmol/L Chloride 97 L (98-107) mmol/L Carbon Dioxide 25 (22-30) mmol/L Anion Gap 15 mmol/L BUN 45 H (9-20) mg/dL Creatinine 7.90 H* (0.66-1.25) mg/dL Est GFR (CKD-EPI)AfAm 7 (>60 ml/min/1.73 sqM) Est GFR (CKD-EPI)NonAf 6 (>60 ml/min/1.73 sqM) Glucose 110 H (74-99) mg/dL Plasma Lactic Acid Edilberto (0.7-2.0) mmol/L Calcium 8.3 L (8.4-10.2) mg/dL Total Bilirubin 0.7 (0.2-1.3) mg/dL AST 77 H (17-59) U/L ALT 34 (21-72) U/L Alkaline Phosphatase 128 H (38-126) U/L Ammonia (<30) umol/L Total Creatine Kinase 179 H (55-170) U/L CK-MB (CK-2) 1.7 (0.0-2.4) ng/mL CK-MB (CK-2) Rel Index 0.9 Troponin I 0.034 (0.000-0.034) ng/mL Total Protein 5.3 L (6.3-8.2) g/dL Albumin 2.8 L (3.5-5.0) g/dL Urine Color Urine Appearance (Clear) Urine pH (5.0-8.0) Ur Specific [place] (1.001-1.035) Urine Protein (Negative) Urine Glucose (UA) (Negative) Urine Ketones (Negative) Urine Blood (Negative) Urine Nitrite (Negative) Urine Bilirubin (Negative) Urine Urobilinogen (<2.0) mg/dL Ur Leukocyte Esterase (Negative) Urine WBC (0-5) /hpf Urine WBC Clumps (None) /hpf Ur Squamous Epith Cells (0-4) /hpf Urine Bacteria (None) /hpf 01/14/18 01/14/18 01/14/18 Range/Units 13:00 13:00 13:44 WBC (3.8-10.6) k/uL RBC (4.30-5.90) m/uL Hgb (13.0-17.5) gm/dL Hct (39.0-53.0) % MCV (80.0-100.0) fL MCH (25.0-35.0) pg MCHC (31.0-37.0) g/dL RDW (11.5-15.5) % Plt Count (150-450) k/uL Neutrophils % % Lymphocytes % % Monocytes % % Eosinophils % % Basophils % % Neutrophils # (1.3-7.7) k/uL Lymphocytes # (1.0-4.8) k/uL Monocytes # (0-1.0) k/uL Eosinophils # (0-0.7) k/uL Basophils # (0-0.2) k/uL PT 10.6 (9.0-12.0) sec INR 1.1 (<1.2) APTT 23.9 (22.0-30.0) sec Sodium (137-145) mmol/L Potassium (3.5-5.1) mmol/L Chloride (98-107) mmol/L Carbon Dioxide (22-30) mmol/L Anion Gap mmol/L BUN (9-20) mg/dL Creatinine (0.66-1.25) mg/dL Est GFR (CKD-EPI)AfAm (>60 ml/min/1.73 sqM) Est GFR (CKD-EPI)NonAf (>60 ml/min/1.73 sqM) Glucose (74-99) mg/dL Plasma Lactic Acid Edilberto 2.9 H* (0.7-2.0) mmol/L Calcium (8.4-10.2) mg/dL Total Bilirubin (0.2-1.3) mg/dL AST (17-59) U/L ALT (21-72) U/L Alkaline Phosphatase (38-126) U/L Ammonia 23 (<30) umol/L Total Creatine Kinase (55-170) U/L CK-MB (CK-2) (0.0-2.4) ng/mL CK-MB (CK-2) Rel Index Troponin I (0.000-0.034) ng/mL Total Protein (6.3-8.2) g/dL Albumin (3.5-5.0) g/dL Urine Color Yellow Urine Appearance Cloudy (Clear) Urine pH 7.0 (5.0-8.0) Ur Specific [place] 1.012 (1.001-1.035) Urine Protein 1+ H (Negative) Urine Glucose (UA) Negative (Negative) Urine Ketones Negative (Negative) Urine Blood Small H (Negative) Urine Nitrite Negative (Negative) Urine Bilirubin Negative (Negative) Urine Urobilinogen <2.0 (<2.0) mg/dL Ur Leukocyte Esterase Large H (Negative) Urine WBC >182 H (0-5) /hpf Urine WBC Clumps Many H (None) /hpf Ur Squamous Epith Cells 4 (0-4) /hpf Urine Bacteria Few H (None) /hpf 01/14/18 12:39 EKG shows sinus rhythm with premature atrial complexes and a pattern of bigeminy. Low voltage QRS. Possible inferior infarct age undetermined. Prolonged QT. Abnormal EKG. Ventricular rate of 76 bpm. CO interval is 136 ms. QRS duration 74. QT QTc is 516/580. - Radiology Data Radiology results: report reviewed KUB shows nonspecific bowel gas pattern. Peritoneal dialysis catheter loop to the left lower quadrant. Chest x-ray shows hypoventilatory changes with stranding scarring at the left base. No acute process noted. Disposition Clinical Impression: Chronic renal failure, UTI (urinary tract infection), Failure of outpatient treatment, Peritoneal dialysis catheter in place Disposition: ADMITTED IP TO THIS HOSP Condition: Stable Is patient prescribed a controlled substance at d/c from ED?: No If prescribed controlled substance>3 days was MAPS reviewed?: No When asked, does pt state using other controlled substances?: No Referrals: Dat Redman DO [Primary Care Provider] - 1-2 days Time of Disposition: 14:41
[2018-01-14] MEDS: SODIUM CHLORIDE 0.9% 500 ML IV SCH (13:02)
[2018-01-14] MEDS: SODIUM CHLORIDE 0.9% 1,000 ML IV SCH ×4 (13:03→23:52)
[2018-01-14 13:20] LABS: Basophils # (A) 0.1 k/uL (0-0.2); Basophils % (A) 1 %; Eosinophils # (A) 0.5 k/uL (0-0.7); Eosinophils % (A) 6 %; HCT 40.7 % (39.0-53.0); HGB 13.4 gm/dL (13.0-17.5); Lymphocytes # (A) 1.8 k/uL (1.0-4.8); Lymphocytes % (A) 21 %; MCH 32.4 pg (25.0-35.0); MCHC 32.9 g/dL (31.0-37.0); MCV 98.4 fL (80.0-100.0); Mean Platelet Volume 7.1; Monocytes # (A) 1.1 k/uL (0-1.0); Monocytes % (A) 13 %; Neutrophils # (A) 4.9 k/uL (1.3-7.7); Neutrophils % (A) 57 %; Platelet Count 332 k/uL (150-450); RBC 4.13 m/uL (4.30-5.90); RDW 13.7 % (11.5-15.5); WBC 8.5 k/uL (3.8-10.6)
[2018-01-14 13:28] LABS: INR 1.1 (<1.2); Partial Thromboplastin Time 23.9 sec (22.0-30.0); Prothrombin Time 10.6 sec (9.0-12.0)
[2018-01-14 13:33] LABS: Albumin 2.8 g/dL (3.5-5.0); Calcium 8.3 mg/dL (8.4-10.2); Potassium 3.8 mmol/L (3.5-5.1); Total Bilirubin 0.7 mg/dL (0.2-1.3); Total Protein 5.3 g/dL (6.3-8.2)
[2018-01-14 13:35] LABS: Lactic Acid, Venous 2.9 mmol/L (0.7-2.0)
[2018-01-14] MEDS ORDERED: SODIUM CHLORIDE 0.9% 1,000 ML IV ONE (13:58)
[2018-01-14 14:00] LABS: Creatine Kinase MB 1.7 ng/mL (0.0-2.4); Troponin I 0.034 ng/mL (0.000-0.034)
--- NOTE | 2018-01-14 14:02 | XR ---
EXAMINATION TYPE: XR chest 2V DATE OF EXAM: 01/14/2018 COMPARISON: 11/29/2017 HISTORY: 77-year-old male with pain and cough TECHNIQUE: AP and lateral views FINDINGS: Heart normal size. Left-sided CVC tip in the lower right atrium. Mild elongation thoracic aorta. Mild diffuse interstitial prominence. Strandy atelectasis or scarring at the left base is unchanged. No p leural effusion. Low lung volumes. IMPRESSION: Hypoventilatory changes with similar strandy scarring at the left base. No acute process seen.
[2018-01-14 14:03] LABS: Appearance,Urine Cloudy (Clear); Bacteria,Urine Few /hpf; Bilirubin,Urine Negative (Negative); Blood,Urine Small (Negative); Color,Urine Yellow; Glucose,Urine (UA) Negative (Negative); Ketones,Urine Negative (Negative); Leukocyte Esterase,Urine Large (Negative); Nitrite,Urine Negative (Negative); Protein,Urine 1+ (Negative); Specific Gravity,Urine 1.012 (1.001-1.035); Squamous Epithelial Cell,Urine 4 /hpf (0-4); Urobilinogen,Urine <2.0 mg/dL (<2.0); WBC,Urine >182 /hpf (0-5)
--- NOTE | 2018-01-14 14:04 | XR ---
EXAMINATION TYPE: XR KUB DATE OF EXAM: 01/14/2018 CLINICAL DATA: 77-year-old male with pain, [facility] COMPARISON: 02/17/2017 FINDINGS: Supine imaging limited for assessment of free air. No dilated small bowel. Scattered large and small bowel gas is present with mild stool burden. Air ex tends distally into the rectum. And peritoneal dialysis catheter is looped at the left lower quadrant . IMPRESSION: Nonspecific, nonobstructive bowel gas pattern. Peritoneal dialysis catheter looped at the left lower quadrant.
[2018-01-14] MEDS ORDERED: NALOXONE 0.4 MG/ML 1 ML VIAL IV PRN (14:44)
[2018-01-14] MEDS ORDERED: ONDANSETRON 4 MG/2 ML VIAL IVP PRN (14:44)
[2018-01-14] MEDS ORDERED: ACETAMINOPHEN TAB 325 MG TAB PO PRN (14:44)
[2018-01-14] MEDS ORDERED: Acetaminophen-Codeine 300-30mg TAB PO PRN (14:44)
[2018-01-14] MEDS ORDERED: SEVELAMER 800 MG TAB PO PRN (14:49)
[2018-01-14] MEDS ORDERED: PRAMIPEXOLE 0.125 MG TAB PO SCH (16:00)
[2018-01-14] MEDS: MIDODRINE 5 MG TAB PO SCH ×2 (17:03→23:51)
[2018-01-14] MEDS: SEVELAMER 800 MG TAB PO SCH (17:50)
[2018-01-14] MEDS: DIALYSIS (PERIT 1.5%) 2,500 ML 37.5 G/2,500 ML BAG INTRAPERIT SCH ×2 (18:05→23:51)
[2018-01-14] MEDS: IOPAMIDOL-300 CONTRAST 30 ML VIAL (ORAL USE) PO PRN (20:28)
--- NOTE | 2018-01-14 20:46 | CONS ---
CONSULTATION DATE OF SERVICE: 01/14/2018 REASON FOR CONSULTATION: Urinary tract infection, failing outpatient antibiotic therapy. HISTORY OF PRESENT ILLNESS: The patient is a 77-year-old male with a past medical history significant for end-stage renal disease, currently on peritoneal dialysis. The patient continues to have dialysis during the day and one automatic one at night. The patient has been patient still makes urine and previously had to self-catheterize himself; however, the patient recently. The patient has been brought into the ER, as his was complaining the patient was trying to unplug himself from the machine last night when he was receiving dialysis. The patient seems to have been confused; however, no high-grade fever has been noticed, but now specifically the patient denies having any chest pain or shortness of breath or cough. He is complaining of some vague abdominal pain, but there is no cloudy peritoneal fluid during dialysis. The patient denies having any abdominal pain. Denies any difficulty with urination or any burning or frequency or hematuria. On arrival in the ER, the patient was noticed to be hypotensive and did require some fluid support. He did have a chest x-ray which showed hypoventilatory changes with similar strandy scarring in the left base. A KUB has been done which shows nonobstructive, nonspecific bowel gas pattern and the peritoneal dialysis catheter looped in the left lower quadrant. Patient did not have any high- grade fever. His white count was normal. However, the patient's UA has been positive for large leukocyte esterase, more than 182 WBCs with many bacteria. He did receive a dose of Rocephin in the ER and has been admitted to hospital. Infectious Disease was consulted for further recommendations regarding antibiotic therapy. Apparently the patient has been on ciprofloxacin in the outpatient setting. That was continued at 750 mg b.i.d. REVIEW OF SYSTEMS: CONSTITUTIONAL: Positive for weakness. Some chills but no high-grade fever. EYES: No complaint. ENT: No complaint. RESPIRATORY: No complaint. CARDIOVASCULAR: No complaint. GENITOURINARY: As per HPI. GASTROINTESTINAL: As per HPI. MUSCULOSKELETAL: No complaint. INTEGUMENTARY: No complaint. PSYCHOLOGICAL: As per HPI. ENDOCRINE: No complaint. NEUROLOGICAL: No complaint. PAST MEDICAL HISTORY: 1. Hypertension. 2. Pulmonary fibrosis. 3. End-stage renal disease, on peritoneal dialysis. 4. Hepatitis C. 5. Normal-pressure hydrocephalus. 6. Previous Clostridium difficile colitis. PAST SURGICAL HISTORY: 1. Hernia repair. 2. ASBESTOS BRAKE LINING FINISHER HELPER shunt. 3. Cataract surgery. SOCIAL HISTORY: No history of smoking, drinking or drug use. FAMILY HISTORY: Family history of pulmonary embolism. ALLERGIES: 1. SULFA. 2. PENICILLIN. Tolerated Rocephin in the ER without any problem. CURRENT MEDICATION: 1. Tylenol. 2. Rocaltrol. 3. Cipro 750 twice a day. 4. Vitamin D2. 5. Synthroid. 6. ProAmatine. 7. Narcan. 8. Zofran. 9. Protonix. 10.Senokot. 11.IV fluid. PHYSICAL EXAMINATION: Blood pressure is 95/47, pulse of 72, temperature of 98. He is 97% on room air. General description is an elderly male lying in bed in no distress. No tachypnea or accessory muscle of respiration use. HEENT examination shows slight pallor. No scleral icterus. Oral mucous membrane is dry. No pharyngeal erythema or thrush. NECK: Trachea is central. No thyromegaly. LUNGS: Unlabored breathing. Clear to auscultation anteriorly. No wheeze or crackle. HEART: S1, S2. Regular rate and rhythm. No added sound. ABDOMEN: Soft. Mildly distended. The patient is tender in the right lower quadrant area. No guarding. No rigidity. No organomegaly. EXTREMITIES: No edema of feet. SKIN EXAMINATION: No rash or mass palpable. Neurologically patient is awake, alert, oriented x2. Mood and affect normal. LABS: Hemoglobin 13.4, white count 8.5. BUN of 45, creatinine of 7.90. Electrolytes have been normal. Lactic acid 2.9 to 2.8. UA has been positive. DIAGNOSTIC IMPRESSION AND PLAN: Patient admitted to hospital with mental status changes in a patient who does still makes some urine with significant with concern about possible urinary tract infection, failing outpatient oral Cipro therapy; however, the patient is noted to be tender in the right lower quadrant area; underlying abdominal source is not entirely excluded. Patient does undergo peritoneal dialysis; however, fluid is not cloudy per his , who takes care of the patient. PLAN: 1. Discontinue ciprofloxacin, as the patient was already on Cipro in the outpatient setting. 2. Start the patient on Rocephin 1 gram IV piggyback daily. 3. We will check the urine dialysis fluid cell count, differential, Gram stain and culture. 4. We will obtain a CT of abdomen and pelvis with oral contrast only to rule out other intraabdominal pathology in view of this tenderness in the right side of the body. 5. We will follow up on his clinical condition and culture to further adjust medication if needed. Thank you for this consultation. Will follow this patient along with you. MMODL / IJN: [id number] /
[2018-01-14] MEDS ORDERED: CIPROFLOXACIN HCL 250 MG TAB PO SCH (21:00)
[2018-01-14 21:21] LABS: Color,BF Colorless
[2018-01-14 21:22] LABS: Appearance,BF Hazy; Nucleated Cells, Body Fluid 8 /uL; RBC, Body Fluid 2 /uL
[2018-01-14] MEDS: PANTOPRAZOLE 40 MG TABLET PO SCH (23:51)
--- NOTE | 2018-01-14 23:57 | HP ---
HISTORY AND PHYSICAL DATE OF SERVICE: 01/14/2018 PRESENTING COMPLAINT: Confused. HISTORY OF PRESENTING COMPLAINT: This is a pleasant 77-year-old patient who was here in the hospital in October of this year, follows with Dr. Redman. Chronic stable medical conditions include end-stage kidney disease, hypothyroid, osteoarthritis, pulmonary fibrosis. The patient has been receiving peritoneal dialysis for close to 4 years due to NSAID-induced kidney injury. The patient normally runs hypotensive and is not felt to be a candidate for hemodialysis. The patient has been diagnosed with usual interstitial pneumonitis/fibrosis. The patient also has normal-pressure hydrocephalus with a STRAP MACHINE OPERATOR AUTOMATIC shunt. The patient was being treated as an outpatient for UTI by Dr. Hutton and apparently that was not responding well; hence, she sent the patient in. The patient has no recent urine cultures in the results section of the hospital. The patient is somewhat confused and delirious. He is not sure why he is here or can give more details except for answering simple questions. No family is present. The patient denies any fevers. He thinks his appetite is okay, but really cannot give any detailed history. REVIEW OF SYSTEMS: CONSTITUTIONAL: Tired. HEENT: None. RESPIRATORY: Some baseline shortness of breath. CARDIOVASCULAR: None. GASTROINTESTINAL: None. GENITOURINARY: None. MUSCULOSKELETAL: None. DERMATOLOGICAL: None. HEMATOLOGIC: None. LYMPHATIC: None. PSYCHIATRY: As above. NEUROLOGICAL: As above. PAST MEDICAL HISTORY: 1. End-stage kidney disease, on peritoneal dialysis secondary to NSAID-induced injury. 2. Usual interstitial pneumonitis. 3. Primary osteoarthritis. 4. Hypoalbuminemia. 5. Secondary hyperparathyroidism. 6. Normal-pressure hydrocephalus with STRAP MACHINE OPERATOR AUTOMATIC shunt. 7. Medical debility. PAST SURGICAL HISTORY: Hernia repair, orthopedic surgery, STRAP MACHINE OPERATOR AUTOMATIC shunt, bilateral knee replacement, thoracic wedge lung biopsy in 2017, cataract lens with implant. SOCIAL HISTORY: Does not smoke or drink alcohol, . FAMILY HISTORY: Pulmonary embolism. HOME MEDICATIONS: 1. Omeprazole 20 mg q.h.s. 2. Renvela 1600 mg a.c. b.i.d. p.r.n. and 2400 mg p.o. a.c. t.i.d. 3. Senokot S 1 tablet p.o. daily. 4. Mirapex 0.125 mg p.o. t.i.d. 5. ProAmatine 10 mg p.o. t.i.d. 6. Synthroid 75 mcg p.o. daily. 7. Vitamin D2 50,000 units p.o. on Saturday. 8. Ciprofloxacin 750 mg p.o. b.i.d. 9. Calcitriol 0.5 mcg p.o. on Saturday. ALLERGIES: PENICILLIN, SULFUR. EXAMINATION: Temperature 98, pulse 65, respirations 18, blood pressure 95/42, pulse ox 96% on room air. GENERAL APPEARANCE: Average build, lying in bed, awake, tired-appearing. EYES: Pupils equal. Conjunctivae normal. HEENT: External nose and ears normal. Oral cavity normal. NECK: JVD not raised. Mass not palpable. RESPIRATORY: Effort normal. LUNGS: Diminished breath sounds. CARDIOVASCULAR: First and second sounds normal. No edema. ABDOMEN: Slightly distended. PD catheter in place. Liver and spleen not palpable. LYMPHATIC: No lymph node palpable in neck or axillae. PSYCHIATRY: Patient able answer simple questions, but rather confused. NEUROLOGICAL: Pupils equal. No facial asymmetry. Moving all 4 limbs. INVESTIGATIONS: White count 8.5, hemoglobin 13.4. Potassium 3.8, BUN 45, creatinine 7.9, albumin 2.8. UA positive for leuko esterase, WBC, 4 squamous epithelial cells. 1. This is a patient who presents with acute confusion. This well may could be acute delirium from acute urinary tract infection. 2. Acute complicated acute complicated UTI/cystitis cystitis. 3. Hypoalbuminemia, could be mild protein-calorie malnutrition. 4. End-stage kidney disease from nonsteroidal anti-inflammatory drugs. The patient now on peritoneal dialysis. 5. Usual interstitial pneumonitis. 6. Primary osteoarthritis multiple joints. 7. Secondary hyperparathyroidism. 8. Normal-pressure hydrocephalus with a ventriculoperitoneal shunt. PLAN: Infectious Disease was consulted regarding the antibiotics, has currently put the patient on IV ceftriaxone. Urine cultures are pending. Home medications will be resumed. Nephrology is consulted to coordinate the peritoneal dialysis. The patient is not eating much at the present time. The patient will be started on IV fluids. Peritoneal dialysis is to continue. Peritoneal dialysate fluid is also being sent off for culture to rule out SBP, but no other signs of infection at the present time. The patient already has a source. MMODL / IJN: [id number] /
[2018-01-15] MEDS: LEVOTHYROXINE 75 MCG TAB PO SCH (06:03)
[2018-01-15] MEDS: DIALYSIS (PERIT 1.5%) 2,500 ML 37.5 G/2,500 ML BAG INTRAPERIT SCH ×3 (06:10→18:09)
[2018-01-15] MEDS: IOPAMIDOL-300 CONTRAST 30 ML VIAL (ORAL USE) PO PRN ×2 (06:49→08:10)
[2018-01-15] MEDS: cefTRIAXone IN SWFI 1,000 MG/10 ML SYRINGE IVP SCH (08:10)
[2018-01-15] MEDS: SEVELAMER 800 MG TAB PO SCH ×3 (08:59→17:24)
[2018-01-15] MEDS: SENNOSIDES-DOCUSATE SODIUM 1 EACH TAB PO SCH (08:59)
[2018-01-15] MEDS: MIDODRINE 5 MG TAB PO SCH ×3 (08:59→20:57)
[2018-01-15] MEDS: SODIUM CHLORIDE 0.9% 1,000 ML IV SCH ×2 (09:00→12:20)
--- NOTE | 2018-01-15 09:11 | CT ---
EXAMINATION TYPE: CT brain wo con DATE OF EXAM: 01/15/2018 HISTORY: MANAGING CONSULTANT shunt for hydrocephalus; acute confusion CT DLP: 1054.2 mGycm. Automated Exposure Control for Dose Reduction was Utilized. TECHNIQUE: CT scan of the head is performed without contrast. COMPARISON: CT brain November 29, 2017 FINDINGS: There is persistent left parietal franny hole with MANAGING CONSULTANT shunt catheter terminating in the post erior aspect left frontal horn on axial image 29 unchanged in position from prior . There is no acute intracranial hemorrhage or midline shift identified. There is diffuse ventricular and sulcal promine nce consistent with diffuse age-related cerebral atrophy. Ventricular size is stable from prior. The re is low-attenuation in the periventricular white matter consistent with chronic small vessel ischem ic change. The globes are intact and the visualized sinuses are clear. Persistent patchy fluid sig nal left greater than right mastoid air cells remains present. IMPRESSION: No acute intracranial hemorrhage or midline shift. There is stable moderate diffuse age -related cerebral atrophy and chronic small vessel ischemic change with left-sided MANAGING CONSULTANT shunt catheter stable in position. Ventricular size is unchanged.
--- NOTE | 2018-01-15 09:23 | CT ---
EXAMINATION TYPE: CT abdomen pelvis wo con DATE OF EXAM: 01/15/2018 HISTORY: RIGHT SIDED ABD TENDERNESS CT DLP: 1280 mGycm. Automated Exposure Control for Dose Reduction was Utilized. TECHNIQUE: CT scan of the abdomen and pelvis is performed with oral but without IV contrast. COMPARISON: Chest x-ray from yesterday. Abdominal x-ray from November 29, 2017 and yesterday. FINDINGS: Within the limitations of a non-contrast study, the following observations are made. LUNG BASES: There are tiny bilateral pleural effusions with associated compressive atelectasis. There is be a VA shunt catheter terminating in right atrium. Coronary artery calcification is present whic h is noted marker for coronary artery disease. There are scattered linear scarring and/or atelectasis in both bases. LIVER/GB: Liver is somewhat small in size with lobulated contour, underlying cirrhosis is not exclude d, clinical and lab correlation advised. Surrounding ascites is present. PANCREAS: There is mild to moderate diffuse atrophy of pancreas with scattered calcifications, findin gs presumed product of chronic pancreatitis. SPLEEN: Perisplenic ascites is seen. ADRENALS: No significant abnormality is seen. KIDNEYS: There is end-stage atrophy and diminished size to both kidneys. There is left mid abdominal peritoneal shunt catheter which extends inferiorly and terminates in the anterior right upper to mid pelvis. BOWEL: Oral contrast is seen in nondistended stomach and duodenal sweep. Oral contrast is seen in non distended small bowel loops throughout the abdomen and upper pelvis. Contrast does not extend to colo genet level. No suspicious colonic dilatation is seen. GENITAL ORGANS: Prostate is normal in size. LYMPH NODES: No greater than 1cm abdominal or pelvic lymph nodes are appreciated. OSSEOUS STRUCTURES: There is moderate multilevel spurring in the thoracolumbar spine. There is facet arthropathy lower lumbar levels. There is spurring at sacroiliac joints. OTHER : There is moderate sized fat-containing right inguinal hernia coronal image 46. There is large fluid-containing left inguinal hernia same coronal image. There are ventral wall hernia is narrow um bilicus containing focal fluid and foci of air. Portion of bowel loop into hernia is suspected axial image 65. No suspicious dilatation is seen. There is moderate amount of abdominal and pelvic ascites most prominent in the paracolic gutters and anterior pelvis. Pneumoperitoneum is present. There is mi ld to moderate calcified plaque of aorta extending into branch vessels. IMPRESSION: 1. Pneumoperitoneum and moderate amount of abdominal and pelvic ascites presumed on basis of known pe ritoneal dialysis catheter. Peritonitis would need to be considered given patient's symptoms and know n peritoneal dialysis catheter. 2. Attention to liver as detailed above. 3. Ventral hernias containing fluid noted. Inguinal hernias containing fat and fluid noted.
--- NOTE | 2018-01-15 10:50 | CONS ---
CONSULTATION DATE OF CONSULTATION: 01/14/2018 CHIEF COMPLAINT: Questionable Parkinson's and altered mental status. HISTORY OF PRESENT ILLNESS: Mr. Guidry is a pleasant 77-year-old, male, who is being evaluated today on 01/14/2018 by the neurology service per the request of Dr. Negrete. The patient was brought into [facility] Emergency Room after he was seen by Dr. Hutton for urinary tract infection that has failed outpatient treatment. The patient does have history of chronic renal failure and is on peritoneal dialysis. A neurology consultation was obtained because the patient was recently started on Mirapex for tremors. Since starting Mirapex, his noticed that he is frequently confused and not acting like his usual self. He has been on Mirapex for a few weeks now. She states that Mirapex was started because he was having tremors in his arms and legs. When describing the tremor, the patient is describing a postural tremor and an action tremor. Both the patient and his deny having any resting tremor. A laboratory workup was done and his CBC was normal. His comprehensive metabolic profile showed renal insufficiency with a BUN of 45 and creatinine of 7.9. His calcium was 8.3. His protein and albumin were low at 5.3 and 2.8 respectively. His urinalysis showed greater than 182 WBCs with large leukocyte esterase. The patient has been on Cipro at home for several weeks. PAST MEDICAL HISTORY: End-stage renal disease, gastroesophageal reflux disease, hypertension, pulmonary fibrosis, hepatitis C, history of normal pressure hydrocephalus, history of orthopedic surgeries and hernia repair, history of RN MANAGER shunt placement, cataract surgeries. SOCIAL HISTORY: He denies any tobacco, alcohol or drug use. FAMILY HISTORY: Positive for pulmonary embolism. HOME MEDICATIONS: Reviewed in the chart. ALLERGIES: PENICILLIN and SULFA DRUGS. REVIEW OF SYSTEM: CONSTITUTIONAL: Positive for fatigue. EYES: Negative. ENT: Negative. CARDIOVASCULAR: Negative. RESPIRATORY: Positive for occasional shortness of breath. NEUROLOGICAL: As mentioned above. GASTROINTESTINAL: Positive for occasional heartburn. GENITOURINARY: As mentioned above. PSYCHIATRIC: Negative. DERMATOLOGICAL: Negative. ENDOCRINE: Negative. MUSCULOSKELETAL: Positive for occasional joint pain. PHYSICAL EXAM: Vital signs show a temperature of 97.6, pulse 54, respiration 18, blood pressure 99/50. GENERAL APPEARANCE: The patient is a well-developed, elderly male who appears to be in no acute distress. HEENT: Normocephalic, atraumatic. No facial asymmetry is seen. Extraocular muscles are intact. Neck is supple with no masses felt. CARDIOVASCULAR: Regular rate and rhythm. ABDOMEN: Slightly distended with mild tenderness to palpation seen. Extremities showed trace edema with no clubbing seen. NEUROLOGICAL EXAM: The patient is awake and oriented x3. Speech and language are normal. Strength is 3/5 in the left lower extremity, 4+ out of 5 in the right lower extremity, and 5 minus out of 5 in bilateral upper extremities. Sensory exam showed diminished light touch sensation in bilateral distal lower extremities. Minimal postural tremors are seen. No resting tremor is noticed. Mild cogwheel rigidity is seen in the left upper extremity. No facial asymmetry is seen on cranial nerve testing. IMPRESSION: 1. Tremors. 2. Altered mental status. 3. Left lower extremity weakness. 4. Chronic renal failure. 5. Urinary tract infection. RECOMMENDATION: The patient's above-mentioned episode of tremors are not consistent with Parkinson's tremors. Those episodes are more consistent with a postural tremor and action tremor. His physical examination/neurological examination does show mild cogwheel rigidity on the left upper extremity, but he has no resting tremor or any facial features consistent with parkinsonism. He has been having significant confusion since starting Mirapex. For this reason, I will discontinue this medication and will monitor his neurological symptoms while off of Mirapex. I will also consider ordering a SPECT scan to check for evidence of Parkinson disease. This will be done in the outpatient setting. An EEG has been ordered. His exam also showed weakness in the left lower extremity compared to the right and slight variation in the upper extremity strength on the left compared to the right. I will order an MRI of the brain to rule out any ischemic etiologies. Nephrology is following regarding his renal failure. Continue your current management regarding his urinary tract infection. I will continue to follow with you. Further recommendations to follow. Thank you for allowing me to participate in the care of your patient. If you have any questions, please feel free to contact me. ZAK / VALENTE: [id number] /
--- NOTE | 2018-01-15 13:15 | P.NPCON ---
History of Present Illness - Reason for Consult end stage renal disease - History of Present Illness Reason for consultation: End-stage renal disease History of present illness: Patient is a 77-year-old male seen in renal consultation for end-stage renal disease. Patient is maintained on peritoneal dialysis. Patient was sent to the hospital for severe hypotension with systolic blood pressure in the 60s. Patient had a recent UTI and was taking ciprofloxacin as an outpatient. He denies any hematuria or dysuria. He does make urine. He is currently maintained on midodrine 10 mg 3 times daily. He is also on normal saline at 100 mL an hour. He is awake and alert. Denies chest pain or shortness of breath. Oral intake is good. He denies any abdominal pain. Denies any problems with peritoneal dialysis. Dialysate fluid is clear. His blood pressure this morning was 86/45. Denies vomiting or diarrhea. He is afebrile. Vital signs are stable. General: The patient appeared well nourished and normally developed. HEENT: Head exam is unremarkable. Neck is without jugular venous distension. LUNGS: Lungs are clear to auscultation and percussion. Breath sounds decreased. HEART: Rate and Rhythm are regular. First and second heart sounds normal. No murmurs, rubs or gallops. ABDOMEN: Abdominal exam reveals normal bowel sounds. Non-tender and non- distended. No evidence of peritonitis. EXTREMITITES: No clubbing, cyanosis, or edema. Past Medical History Past Medical History: Renal Disease, Thyroid Disorder Additional Past Medical History / Comment(s): uti,ihypotension, idiopathic pulmonary fibrosis/upi-see lung bx specimen report, peritoneal dialysis, hepatitis C, normal pressure hydrocephalus (NPH), c-diff w/sepsis, parkinsons, tremors. History of Any Multi-Drug Resistant Organisms: C-DIFF Date of last positivie culture/infection: 10/20/2016 MDRO Source:: stool Past Surgical History: Hernia Repair, Orthopedic Surgery Additional Past Surgical History / Comment(s): vp talent management shunt, melissa knee replacements, thoracic wedge lung bx 2017. cataract-lens implants Past Anesthesia/Blood Transfusion Reactions: Previous Problems w/ Anesthesia Additional Past Anesthesia/Blood Transfusion Reaction / Comment(s): states stopped breathing during an arthroscopy yrs. ago but has had surgeries since w/ no problems.. received blood transfusion in past-no known reaction Smoking Status: Never smoker - Past Family History Son(s) Family Medical History: Pulmonary Embolus Father Additional Family Medical History / Comment(s): parkinsons Mother Family Medical History: Hypertension Additional Family Medical History / Comment(s): of old age Medications and Allergies Home Medications Medication Instructions Recorded Confirmed Type Levothyroxine Sodium [Synthroid] 75 mcg PO DAILY 08/06/16 01/14/18 History Midodrine HCl [ProAmatine] 10 mg PO TID 08/06/16 01/14/18 History Sevelamer [Renvela] 2,400 mg PO AC-TID 08/06/16 01/14/18 History Calcitriol 0.5 mcg PO FR 02/17/17 01/14/18 History Ergocalciferol (Vitamin D2) 50,000 unit PO FATIMA 02/17/17 01/14/18 History [Vitamin D2] Omeprazole 20 mg PO HS 11/29/17 01/14/18 History Sevelamer [Renvela] 1,600 mg PO AC-BID PRN 11/29/17 01/14/18 History Pramipexole [Mirapex] 0.125 mg PO TID #90 tab 12/03/17 01/14/18 Rx Sennosides-Docusate Sodium 1 tab PO DAILY #30 tablet 12/03/17 01/14/18 Rx [Senokot-S] Ciprofloxacin HCl [Cipro] 750 mg PO BID 01/14/18 01/14/18 History Allergies Allergy/AdvReac Type Severity Reaction Status Date / Time Penicillins Allergy Rash/Hives Verified 01/14/18 12:30 Sulfa (Sulfonamide Allergy Rash/Hives Verified 01/14/18 12:30 Antibiotics) Physical Exam Vitals: Vital Signs Temp Pulse Pulse Resp BP BP Pulse Ox 01/15/18 06:27 98 F 57 L 20 86/45 95 01/15/18 06:15 98.0 F 57 L 20 86/45 95 01/15/18 01:17 68 20 93/47 93 L 01/15/18 01:11 97.7 F 67 20 87/38 93 L 01/14/18 22:10 97.9 F 70 14 90/50 92 L 01/14/18 18:05 98.0 F 72 18 95/47 01/14/18 15:57 97.6 F 54 L 18 99/50 97 01/14/18 14:16 71 18 101/58 96 01/14/18 13:49 72 18 103/55 98 Intake and Output 01/14/18 01/15/18 01/15/18 22:59 06:59 14:59 Intake Total 100 800 Output Total 60 Balance 40 800 Intake: Intake, IV Titration 800 Amount Sodium Chloride 0.9% 1, 800 000 ml @ 100 mls/hr IV . Q10H [facility] Rx#:[id number] Oral 100 Output: Urine 60 Straight 60 Other: Voiding Method Indwelling Catheter CAPD # Voids 0 0 # Bowel Movements 1 1 Weight 103 kg 103 kg Results - Lab Results Most recent lab results Calcium 8.3 mg/dL (8.4-10.2) L 01/14/18 13:00 01/14/18 13:00 01/14/18 13:00 Assessment and Plan Plan: Assessment: 1. End-stage renal disease maintained on peritoneal dialysis. 2. Chronic hypotension maintained on midodrine. 3. UTI maintained on IV antibiotics. CAT scan did not reveal any acute changes or abscess. Infectious disease following. 4. 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 Plan: I will decrease rate of normal saline to 50 mL an hour. Check phosphorus level. Continue 2.5 L exchanges every 6 hours with 1.5% dextrose solution. Follow-up cultures. No evidence of peritonitis. Thank you for the consultation. I will continue to follow the patient with you during his hospital stay.
--- NOTE | 2018-01-15 17:47 | EEG ---
ELECTROENCEPHALOGRAM REPORT DATE OF SERVICE: 01/15/2018. REASON FOR TESTING: Altered mental status. DESCRIPTION OF THE PROCEDURE: This EEG was performed using a 21 channel digital electroencephalograph, following international 10-20 system. DESCRIPTION OF THE RECORDING: From the beginning of the tracing, and with patient's eyes closed, the background rhythm was mostly consisting of 8 Hz alpha frequency in the posterior occipital leads. No obvious asymmetry is seen. Occasional movement and muscle artifacts are seen. Photic stimulation was performed with a minimal driving response seen. No pathological waves were elicited. Hyperventilation was not performed. The patient does reach stage II of sleep during the tracing and occasional sleep spindles are seen. No epileptiform discharges were seen. His EKG lead showed a regular rate and rhythm. INTERPRETATION: This asleep and awake EEG can be considered within normal limits. There was no asymmetry seen. No epileptiform discharges were noticed. The absence of epileptiform discharges does not rule out the diagnosis of epilepsy, therefore clinical correlation is recommended. MMRACHELL / IJLia: [id number] /
[2018-01-15] MEDS: PANTOPRAZOLE 40 MG TABLET PO SCH (20:57)
--- NOTE | 2018-01-15 21:53 | PN ---
PROGRESS NOTE DATE OF SERVICE: 01/15/2018. REASON FOR FOLLOWUP: Urinary tract infection failing outpatient antibiotic therapy. INTERVAL HISTORY: The patient is afebrile. He still has occasional periods of confusion, but denies having any chest pain. No cough. Still complaining of some abdominal pain on the right side. There is no diarrhea. EXAMINATION: Blood pressure is 86/45, pulse of 85, temperature of 98. He is 91% on room air. General description is an elderly male lying in bed in no distress. RESPIRATORY SYSTEM: Unlabored breathing. Clear to auscultation anteriorly. HEART: S1, S2. Regular rate and rhythm. ABDOMEN: Soft, mildly tender on the right side extremities: No edema of the feet. LABS: Hemoglobin 13.1, white count 8.5 with a BUN of 45, creatinine 7.90. Urine culture currently pending. Blood culture so far negative. The peritoneal fluid cell count differential now suggestive of a peritonitis. CT was reviewed with Dr. Alonzo with no evidence of any inflammation or colitis. DIAGNOSTIC IMPRESSION AND PLAN: Patient with confusion with concern for urinary tract infection failing outpatient oral Cipro therapy. Currently on Rocephin that will be continued, as the patient already has clinical focus of infection. Will wait for the urine culture to finalize. Continue with supportive care. MMODL / IJN: [id number] /
--- NOTE | 2018-01-15 22:27 | MR ---
History confusion. Comparison 03/08/2014. TECHNIQUE: Multiplanar multiecho imaging of the brain was performed with no contrast. FINDINGS: There is metal artifact from the apparently this shunt catheter on the left side. The ventricles are slightly enlarged. There is cerebral cortical atrophy. There is no mass effect nor midline shift. The re is no sign of intracranial hemorrhage. There is increased signal on the T2 and FLAIR images around the lateral ventricles. The brain stem is intact. There is no evidence of a cortical infarct. There is some encephalomalacia at the site of the left side shunt catheter in the left occipital lobe. Ther e is a 1 cm area of increased signal in the parker-white matter junction left parietal lobe. CONCLUSION: There is mild hydrocephalus that is very slightly increased compared to 03/08/2014. This old exam is be fore the shunt catheter. There is new and increasing subependymal edema compared to old exam. There i s a new small focus in the left parietal lobe of white matter ischemia. There is minimal ethmoid sinusitis that is unchanged.
[2018-01-16] MEDS: DIALYSIS (PERIT 1.5%) 2,500 ML 37.5 G/2,500 ML BAG INTRAPERIT SCH ×5 (00:46→23:43)
[2018-01-16] MEDS: SODIUM CHLORIDE 0.9% 1,000 ML IV SCH (06:38)
[2018-01-16] MEDS: LEVOTHYROXINE 75 MCG TAB PO SCH (06:39)
--- NOTE | 2018-01-16 06:41 | PN ---
PROGRESS NOTE DATE OF SERVICE: 01/15/2018 PRESENTING COMPLAINT: Confusion. INTERVAL HISTORY: This patient was seen by me yesterday, presented with acute confusion, one source is felt to be the UTI causing acute delirium. Antibiotics have been by Dr. Rebollar. Also, neurological workup is in place. Patient does feel weak and tired. Did tolerate some diet. REVIEW OF SYSTEMS: Review of systems attempted for constitutional, cardiovascular, GI, pulmonary; relevant findings as above. CURRENT MEDICATIONS: Current medications are reviewed that include IV ceftriaxone. PHYSICAL EXAMINATION: On examination, temperature 98, pulse 85, respiration 20, blood pressure 86/50, pulse ox 91% on room air. GENERAL APPEARANCE: Lying in bed, tired appearing. EYES: Pupils equal. Conjunctivae normal. HENT: External appearance of nose and ears normal. NECK: JVD not raised. Mass not palpable. RESPIRATORY: Effort normal. LUNGS: Decreased breath sounds. CARDIOVASCULAR: First and second sounds normal. No edema. ABDOMEN: Distended, soft. PD catheter in place. Liver and spleen not palpable. No tenderness. PSYCHIATRY: The patient is able answer simple questions. NEUROLOGICAL: No focal weakness. INVESTIGATIONS: Urine culture pending. CT scan of the abdomen and pelvis showing ascites. EEG unremarkable. Brain MRI results were noted. ASSESSMENT: 1. Acute delirium probably from urinary tract infection. Other metabolic causes are being followed by Neurology. 2. Acute complicated urinary tract infection, cystitis, on IV ceftriaxone. 3. Hypoalbuminemia from mild protein-calorie malnutrition. 4. 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 Patient is on peritoneal dialysis. 5. Usual interstitial pneumonitis. 6. Primary osteoarthritis, multiple joints. 7. Secondary hyperparathyroidism. 8. Normal-pressure hydrocephalus with FINANCIAL SERVICES PROFESSIONAL shunt in place. PLAN: Prognosis is guarded. Continue current medication and treatment plan and antibiotics. Will follow. MMODL / IJN: [id number] /
[2018-01-16] MEDS: SEVELAMER 800 MG TAB PO SCH ×3 (07:50→17:39)
[2018-01-16] MEDS: MIDODRINE 5 MG TAB PO SCH ×3 (07:51→21:16)
[2018-01-16] MEDS: SENNOSIDES-DOCUSATE SODIUM 1 EACH TAB PO SCH (07:51)
[2018-01-16] MEDS: cefTRIAXone IN SWFI 1,000 MG/10 ML SYRINGE IVP SCH (07:57)
--- NOTE | 2018-01-16 12:00 | P.PN ---
Subjective Patient is seen in follow-up for her incisional disease. He is maintained on peritoneal dialysis. No issues with dialysis. Patient presented with hypotension which has improved. Patient tends to have chronic hypotension and is maintained on midodrine as an outpatient. He is currently being treated for presumptive UTI with IV Rocephin. Oral intake is good. No active complaints at this time. He is eager to go home. Vital signs are stable. General: The patient appeared well nourished and normally developed. HEENT: Head exam is unremarkable. Neck is without jugular venous distension. LUNGS: Lungs are clear to auscultation and percussion. Breath sounds decreased. HEART: Rate and Rhythm are regular. First and second heart sounds normal. No murmurs, rubs or gallops. ABDOMEN: Abdominal exam reveals normal bowel sounds. Non-tender and non- distended. No evidence of peritonitis. EXTREMITITES: No clubbing, cyanosis, or edema. Objective - Vital Signs Vital signs: Vital Signs Temp 98.0 F 01/16/18 06:30 Pulse 65 01/16/18 06:30 Resp 20 01/16/18 06:30 BP 87/52 01/16/18 06:30 Pulse Ox 90 L 01/16/18 06:30 Intake & Output 01/15/18 01/16/18 01/16/18 18:59 06:59 18:59 Intake Total 800 Balance 800 Weight 103 kg 109 kg Intake: Intake, IV Titration 800 Amount Sodium Chloride 0.9% 1, 800 000 ml @ 100 mls/hr IV . Q10H [facility] Rx#:[id number] Other: Voiding Method Indwelling Catheter CAPD CAPD # Voids 0 0 # Bowel Movements 2 - Labs CBC & Chem 7: 01/14/18 13:00 01/14/18 13:00 Labs: Abnormal Lab Results - Last 24 Hours (Table) 01/15/18 Range/Units 14:16 Phosphorus 4.9 H (2.5-4.5) mg/dL Microbiology - Last 24 Hours (Table) 01/14/18 13:44 Urine Culture - Final Urine,Catheterized 01/14/18 19:50 Gram Stain - Preliminary Peritoneal Fluid Body Fluid Culture - Preliminary 01/14/18 13:00 Blood Culture - Preliminary Blood No Growth after 24 hours Assessment and Plan Plan: Assessment: 1. End-stage renal disease maintained on peritoneal dialysis. 2. Chronic hypotension maintained on midodrine. 3. UTI maintained on IV antibiotics. CAT scan did not reveal any acute changes or abscess. Infectious disease following. 4. 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 Plan: Maintain normal saline at 50 mL an hour. Continue 2.5 L exchanges every 6 hours with 1.5% dextrose solution. Follow-up cultures. No evidence of peritonitis.
--- NOTE | 2018-01-16 16:48 | P.PN ---
Subjective Progress Note Date: 01/16/18 Patient is a pleasant 77-year-old male who is being followed by the neurology service for questionable Parkinson's and altered mental status. Patient had been seen in primary care physician's office for urinary tract infection that has failed outpatient treatment. Patient was brought to [facility] for further treatment. Patient does have history of chronic renal failure and is on peritoneal dialysis. Patient was recently started on Mirapex for tremors. After starting Mirapex, patient and noticed patient became more confused. Patient does describe a postural tremor and action tremor. Patient and deny resting tremor. At the time of my evaluation, patient is resting comfortably in bed and appears to be in no acute distress. Objective - Vital Signs Vital signs: Vital Signs Temp 97.6 F 01/16/18 14:34 Pulse 65 01/16/18 14:34 Resp 19 01/16/18 14:34 BP 89/52 01/16/18 14:34 Pulse Ox 93 L 01/16/18 14:34 Intake & Output 01/15/18 01/16/18 01/16/18 18:59 06:59 18:59 Intake Total 800 Balance 800 Weight 103 kg 109 kg Intake: Intake, IV Titration 800 Amount Sodium Chloride 0.9% 1, 800 000 ml @ 100 mls/hr IV . Q10H [facility] Rx#:[id number] Other: Voiding Method Indwelling Catheter CAPD CAPD # Voids 0 0 0 # Bowel Movements 2 1 - Exam PHYSICAL EXAM: GENERAL APPEARANCE: Patient is a well-developed, male who appears to be in no acute distress. HEENT: Normocephalic, atraumatic, no facial asymmetry is seen. Neck is supple with no masses felt. CARDIOVASCULAR: Regular rate and rhythm. ABDOMEN: Nontender, nondistended. EXTREMITIES: Show no edema or clubbing. NEUROLOGICAL EXAM: Patient is awake, alert, and oriented 2. Patient states the year is 1969. Speech and language are normal. Strength is 4/5 in right lower extremity and 4-/5 in left lower extremity. Strength is 5-/5 in bilateral upper extremities. Sensory exam is normal to light touch in all 4 extremities. No tremors are seen at this time. No resting tremors noted. No facial asymmetry seen on cranial nerve testing. - Labs CBC & Chem 7: 01/14/18 13:00 01/14/18 13:00 Labs: Microbiology - Last 24 Hours (Table) 01/14/18 13:00 Blood Culture - Preliminary Blood No Growth after 48 hours 01/14/18 13:44 Urine Culture - Final Urine,Catheterized 01/14/18 19:50 Gram Stain - Preliminary Peritoneal Fluid Body Fluid Culture - Preliminary Assessment and Plan Plan: Impression: 1. Tremors 2. Altered mental status 3. Left lower extremity weakness 4. Chronic renal failure 5. Urinary tract infection Recommendation: It appears patient has postural tremor and action tremor which are very controlled today no resting tremors noted. Patient's tremors are not consistent with Parkinson's tremors. Mirapex has been discontinued due to patient confusion. Further workup can be done as an outpatient for Parkinson disease workup. A SPECT scan can be done as an outpatient to check for evidence of Parkinson disease. MRI showed mild hydrocephalus and patient does have a shunt catheter. There is a new small focus in the left parietal lobe of white matter ischemia. I recommend a low-dose aspirin 81 mg by mouth daily. I will order a fasting lipid panel and serum homocysteine level. I will order a carotid Doppler to evaluate for stenosis. EEG was within normal limits. Nephrology is following regarding his renal failure. Continue current medical management. I recommend physical therapy to evaluate and treat. Continue neurological checks. I will continue to follow with you. Further recommendations to follow. I performed an examination of the patient and discussed the management with the HOTSHOT SUPERINTENDENT. I have reviewed the HOTSHOT SUPERINTENDENT notes and agree with the findings and plan of care.
--- NOTE | 2018-01-16 19:50 | PN ---
PROGRESS NOTE DATE OF SERVICE: 01/16/2018. PRESENTING COMPLAINT: Confusion. INTERVAL HISTORY: This patient presented with acute delirium, felt to be precipitated by UTI. The patient's peritoneal dialysis fluid is coming back looking benign. Overall feeling better. Diet is improved. is at the bedside today. REVIEW OF SYSTEMS: Done for constitutional, cardiovascular, GI, pulmonary; relevant findings as above. CURRENT MEDICATIONS: Reviewed and include IV ceftriaxone. EXAMINATION: Temperature 97.6, pulse 55, respirations 19, blood pressure 89/52, pulse ox 93% on room air. GENERAL: Lying in bed, awake. EYES: Pupils equal. Conjunctivae normal. HEENT: External nose and ears normal. Oral cavity normal. NECK: JVD not raised. Mass not palpable. RESPIRATORY: Effort normal. LUNGS: Decreased breath sounds. CARDIOVASCULAR: First and second sounds normal. No edema. ABDOMEN: Distended, soft. PD catheter in place. PSYCHIATRY: The patient is far more alert today, answering questions appropriately. INVESTIGATIONS: Cultures are negative until now. ASSESSMENT: 1. Acute delirium, probably from urinary tract infection with clinical improvement. 2. Acute complicated urinary tract infection cystitis, on IV ceftriaxone with clinical improvement. 3. Hypoalbuminemia from mild protein-calorie malnutrition. 4. 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 Patient on peritoneal dialysis. 5. Usual interstitial fibrosis. 6. Primary osteoarthritis in multiple joints. 7. Secondary hyperparathyroidism. 8. 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 PLAN: Overall patient is doing better. Await cultures to be finalized. Neurological workup has been negative until now, being followed by Dr. Lay. MMODL / IJN: [id number] /
[2018-01-16] MEDS: PANTOPRAZOLE 40 MG TABLET PO SCH (21:16)
--- NOTE | 2018-01-16 21:18 | PN ---
PROGRESS NOTE DATE OF SERVICE: 01/16/2018. REASON FOR FOLLOWUP: Urinary tract infection. INTERVAL HISTORY: The patient is afebrile. He seems to be more awake, alert. He is breathing comfortably. Denies having any chest pain. No cough. No abdominal pain or any diarrhea. EXAMINATION: Blood pressure is 92/44 with a pulse of 65, temperature 97.6. He is 93% on room air. General description is an elderly male lying in bed in no distress. RESPIRATORY SYSTEM: Unlabored breathing. Clear to auscultation anteriorly. HEART: S1, S2. Regular rate and rhythm. ABDOMEN: Soft. No tenderness. LABS: Hemoglobin 13.4, white count 8.5. BUN of 45, creatinine is 7.9. Urine culture so far negative. DIAGNOSTIC IMPRESSION AND PLAN: Patient admitted to hospital with mental status changes which is likely multifactorial with concern for possible urinary tract infection failing outpatient oral antibiotic therapy in the form of Cipro. The patient seemed to have done well on IV Rocephin. If the cultures remain negative, then can be transitioned to a short course of oral Ceftin to finish a course of therapy. Continue supportive care. MMODL / IJN: [id number] /
[2018-01-17] MEDS: SODIUM CHLORIDE 0.9% 1,000 ML IV SCH (01:54)
[2018-01-17 05:34] VITALS: BP 75/34; PULSE 73
[2018-01-17] MEDS: DIALYSIS (PERIT 1.5%) 2,500 ML 37.5 G/2,500 ML BAG INTRAPERIT SCH ×2 (05:34→11:32)
[2018-01-17 05:51] VITALS: RESP 16; TEMP 98.2
[2018-01-17] MEDS: LEVOTHYROXINE 75 MCG TAB PO SCH (06:42)
[2018-01-17] MEDS: SENNOSIDES-DOCUSATE SODIUM 1 EACH TAB PO SCH (08:18)
[2018-01-17] MEDS: cefTRIAXone IN SWFI 1,000 MG/10 ML SYRINGE IVP SCH (08:22)
[2018-01-17] MEDS: MIDODRINE 5 MG TAB PO SCH (08:22)
[2018-01-17] MEDS: SEVELAMER 800 MG TAB PO SCH ×2 (08:22→11:57)
[2018-01-17 08:57] LABS: Cholesterol 132 mg/dL (<200); HDL Cholesterol 50 mg/dL (40-60); LDL Cholesterol,Calculated 65 mg/dL (0-99); Triglycerides 84 mg/dL (<150)
[2018-01-17] MEDS ORDERED: ASPIRIN 81 MG PO SCH (09:00)
--- NOTE | 2018-01-17 10:30 | US ---
EXAMINATION TYPE: US carotid duplex BILAT DATE OF EXAM: 01/17/2018 COMPARISON: NONE CLINICAL HISTORY: ischemia. Confusion EXAM MEASUREMENTS: RIGHT: Peak Systolic Velocity (PSV) cm/sec ----- Right CCA: 75.7 ----- Right ICA: 84.5 ----- Right ECA: 86.7 ICA/CCA ratio: 1.1 RIGHT: End Diastole cm/sec ----- Right CCA: 10.9 ----- Right ICA: 14.2 ----- Right ECA: 7.6 LEFT: Peak Systolic Velocity (PSV) cm/sec ----- Left CCA: 72.5 ----- Left ICA: 87.8 ----- Left ECA: 91.1 ICA/CCA ratio: 1.2 LEFT: End Diastole cm/sec ----- Left CCA: 12.0 ----- Left ICA: 19.7 ----- Left ECA: 0.0 VERTEBRALS (direction of flow): Right Vertebral: Antegrade Left Vertebral: Antegrade Rhythm: Normal Moderate plaque bilateral bifurcations. No increased velocities or significant stenosis at this time IMPRESSION: Moderate grayscale atheromatous plaquing of the carotid bulbs. No sonographically eviden t hemodynamically significant stenosis within either visualized carotid arterial system.
[2018-01-17] MEDS ORDERED: CALCITRIOL 0.25 MCG CAP PO SCH (12:00)
--- NOTE | 2018-01-17 12:43 | CDI ---
Last Revision, August 2017 Documentation Clarification Form Date: 01/17/2018 12:00:00 AM From: Theodora Smith RN, CCDS Admit Date: 01/14/2018 3:06:00 PM Patient Name: Daniel Guidry Visit Number: [id number] Discharge Date: ATTENTION: The Clinical Documentation Specialists (CDI) and [facility] Coding Staff appreciate your assistance in clarifying documentation. Please respond to the clarification below the line at the bottom and electronically sign. The CDI & [facility] Coding staff will review the response and follow-up if needed. Please note: Queries are made part of the Legal Health Record. If you have any questions, please contact the author of this message via ITS. Dr. Katie Lay Altered mental status was documented in your consult and ongoing progress. Patient history/risk factors: End-stage renal failure stage V, with peritoneal dialysis, Normal pressure hydrocephalus. with BANK VAULT CLERK shunt, Hypertension , Hepatitis Ck, Hypotension, Clinical Indicators: Present with history of UTI treated outpatient on Cipro. Patient report he's been increasingly confused. He appears weak, he answer simple questions. Vital signs: 99/50 54 18 97.6 Labs: WBC 8.5, BUN 45, CR 7.90, UA: Large Leukocyte Esterase, WBC >180, Chest X Ray: No acute process seen CT Brain: No acute intracranial hemorrhage or midline shift. Stable age related cerebral atrophy, small vessel ischemic changes with left-sided BANK VAULT CLERK shunt catheter stable in position. Treatment: Neuro checks per protocol Ceftriaxone IV DC Mirapex In your professional opinion, please clarify the etiology of the altered mental status, if known. Encephalopathy (specify Type: Metabolic, Toxic (specify if due to drugs, specify, or other ), and Underlying Medical Illness) Dementia (if know, specify Type and if with/without Behavioral Disturbance) Other condition (please specify) Unable to determine Please continue to document in your progress notes in order to capture severity of illness and risk of mortality. Include clinical findings that support your diagnosis. MTDD
--- NOTE | 2018-01-17 13:09 | P.PN ---
Subjective Patient is seen in follow-up for her incisional disease. He is maintained on peritoneal dialysis. No issues with dialysis. Patient presented with hypotension which has improved. Patient tends to have chronic hypotension and is maintained on midodrine as an outpatient. He is currently being treated for presumptive UTI with IV Rocephin. Oral intake is good. No active complaints at this time. He is eager to go home. Vital signs are stable. General: The patient appeared well nourished and normally developed. HEENT: Head exam is unremarkable. Neck is without jugular venous distension. LUNGS: Lungs are clear to auscultation and percussion. Breath sounds decreased. HEART: Rate and Rhythm are regular. First and second heart sounds normal. No murmurs, rubs or gallops. ABDOMEN: Abdominal exam reveals normal bowel sounds. Non-tender and non- distended. No evidence of peritonitis. EXTREMITITES: No clubbing, cyanosis, or edema. Objective - Vital Signs Vital signs: Vital Signs Temp 98.2 F 01/17/18 05:49 Pulse 73 01/17/18 05:49 Resp 16 01/17/18 05:49 BP 75/34 01/17/18 05:49 Pulse Ox 92 L 01/17/18 05:49 Intake & Output 01/16/18 01/17/18 01/17/18 18:59 06:59 18:59 Intake Total 100 Output Total 125 Balance -125 100 Weight 108.5 kg Intake: Oral 100 Output: Urine 125 Straight 125 Other: Voiding Method CAPD CAPD # Voids 0 0 # Bowel Movements 1 1 2 - Labs CBC & Chem 7: 01/14/18 13:00 01/14/18 13:00 Labs: Microbiology - Last 24 Hours (Table) 01/14/18 19:50 Gram Stain - Preliminary Peritoneal Fluid Body Fluid Culture - Preliminary 01/14/18 13:00 Blood Culture - Preliminary Blood No Growth after 48 hours Assessment and Plan Plan: Assessment: 1. End-stage renal disease maintained on peritoneal dialysis. 2. Chronic hypotension maintained on midodrine. 3. UTI maintained on IV antibiotics. CAT scan did not reveal any acute changes or abscess. Infectious disease following. 4. 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 Plan: Maintain normal saline at 50 mL an hour. Continue 2.5 L exchanges every 6 hours with 1.5% dextrose solution. Follow-up cultures. No evidence of peritonitis. Anticipate discharge soon.
--- NOTE | 2018-01-17 14:01 | PN ---
PROGRESS NOTE DATE OF SERVICE: 01/17/2018 REASON FOR FOLLOWUP: Possible urinary tract infection. INTERVAL HISTORY: The patient is afebrile. He is currently breathing comfortably. Denies having any chest pain. Occasional cough. No abdominal pain. No nausea, no vomiting, or any diarrhea. PHYSICAL EXAMINATION: Blood pressure is 72/36, pulse of 70, temperature 98.2, he is 92% on room air. General description is an elderly male, lying in bed in no distress. RESPIRATORY SYSTEM: Unlabored breathing, clear to auscultation anteriorly. HEART: S1, S2. Regular rate and rhythm. ABDOMEN: Soft, no tenderness. EXTREMITIES: Some trace edema of feet. LABS: No new labs been obtained today. Urine culture so far came back negative. The peritoneal fluid culture so far pending. DIAGNOSTIC IMPRESSION AND PLAN: Patient admitted to the hospital with mental status changes, concern for the urinary tract infection failing outpatient therapy. Patient clinically improved on Rocephin, can finish therapy with oral Ceftin for about a week. Continue supportive care. MMODL / IJN: [id number] /
[2018-01-19] MEDS ORDERED: ERGOCALCIFEROL 50,000 UNIT CAP PO SCH (12:00)
--- NOTE | 2018-01-21 10:14 | CDI ---
Last Revision, August 2017 Documentation Clarification Form Date: 01/17/2018 12:00:00 AM From: Theodora Smith Admit Date: 01/14/2018 3:06:00 PM Patient Name: Daniel Guidry Visit Number: [id number] Discharge Date: ATTENTION: The Clinical Documentation Specialists (CDI) and [facility] Coding Staff appreciate your assistance in clarifying documentation. Please respond to the clarification below the line at the bottom and electronically sign. The CDI & [facility] Coding staff will review the response and follow-up if needed. Please note: Queries are made part of the Legal Health Record. If you have any questions, please contact the author of this message via ITS. Dr. Katie Lay Altered mental status was documented in your consult and ongoing progress. Patient history/risk factors: End-stage renal failure stage V, with peritoneal dialysis, Normal pressure hydrocephalus with GEOCHEMISTRY TEACHER shunt, Hypertension, Hepatitis C , Hypotension, Clinical Indicators: Present with history of UTI treated outpatient on Cipro. Patient report he's been increasingly confused. He appears weak, he answer simple questions. Vital signs: 99/50 54 18 97.6 Labs: WBC 8.5, BUN 45, CR 7.90, UA: Large Leukocyte Esterase, WBC >180, Chest X Ray: No acute process seen CT Brain: No acute intracranial hemorrhage or midline shift. Stable age related cerebral atrophy, small vessel ischemic changes with left-sided GEOCHEMISTRY TEACHER shunt catheter stable in position. Treatment: Neuro checks per protocol Ceftriaxone IV DC Mirapex In your professional opinion, please clarify the etiology of the altered mental status, if known. Encephalopathy (specify Type: Metabolic, Toxic (specify if due to drugs, infection or other), and Underlying Medical Illness) Other condition (please specify) Unable to determine Please continue to document in your progress notes and discharge summary in order to capture severity of illness and risk of mortality. Include clinical findings that support your diagnosis. MTDD
--- NOTE | 2018-01-23 06:34 | DS ---
DISCHARGE SUMMARY DATE OF ADMISSION: 01/14/2018 DATE OF DISCHARGE: January 17, 2018. FINAL DIAGNOSES: 1. Acute delirium probably from urinary tract infection. 2. Acute complicated urinary tract infection/cystitis. 3. Hypoalbuminemia from mild creatinine protein calorie malnutrition from decreased oral intake. 4. 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 The patient is on peritoneal dialysis. 5. Chronic usual interstitial fibrosis. 6. Primary osteoarthritis in multiple joints. 7. Chronic kidney disease with mineral bone disease. 8. Normal-pressure hydrocephalus with MEDICAL SCRIBE shunt in place. HOSPITAL COURSE: This pleasant gentleman with limiting pulmonary fibrosis and on peritoneal dialysis, presented with acute confusion, found to have UTI. Cultures were negative. Patient did respond well to antibiotic in the form of IV ceftriaxone. Other cultures were negative. Because of mental status changes the patient also had a neurological workup which included CT scan of the brain and EEG and carotid Doppler. Nonspecific findings were there. The patient was doing much better at the time of discharge, tolerating a diet. Discussed the care with the patient and . Questions were answered. EXAMINATION: A/O x3. Lungs decreased breath sounds. Few crackles. Cardiovascular: 1st and second sounds normal. Abdomen distended, soft, nontender. DISCHARGE MEDICATIONS: 1. Synthroid 75 mcg a day. 2. ProAmatine 10 mg p.o. t.i.d. 3. Renvela 2400 mg p.o. t.i.d. 4. Calcitriol 0.5 mcg p.o. on Saturday. 5. Vitamin D 50,000 units on Sundays. 6. Omeprazole 20 mg p.o. q.h.s. 7. Renvela 16 mg p.o. a.c. b.i.d. p.r.n. 8. Mirapex 0.125 mg p.o. t.i.d. 9. Senokot-S 1 tablet p.o. daily. 10.Ceftin 250 mg p.o. b.i.d., 14 tablets. CONSULTATIONS: Dr. eRbollar from Infectious Disease; Dr. Lay from Neurology, Dr. Cabrera from Nephrology. On the day of discharge I discussed with Dr. Rebollar from [place] and also discussed care with the patient and . Questions were answered. Discharge planning more than 35 minutes. FOLLOWUP: Follow up with Dr. Brennen. Follow up with Dr. Redman on January 20, 2018. Follow up with Dr. Luna on February 04, 2018. Copy to Dr. Redman. MMODL / IJN: [id number] /
--- NOTE | 2018-02-05 09:41 | CDI ---
Last Revision, August 2017 Documentation Clarification Form Date: 01/17/2018 12:00:00 AM From: Theodora Smith Admit Date: 01/14/2018 3:06:00 PM Patient Name: Daniel Guidry Visit Number: [id number] Discharge Date: ATTENTION: The Clinical Documentation Specialists (CDI) and [facility] Coding Staff appreciate your assistance in clarifying documentation. Please respond to the clarification below the line at the bottom and electronically sign. The CDI & [facility] Coding staff will review the response and follow-up if needed. Please note: Queries are made part of the Legal Health Record. If you have any questions, please contact the author of this message via ITS. Dr. Katie Lay Altered mental status was documented in your consult and ongoing progress. Patient history/risk factors: End-stage renal failure stage V, with peritoneal dialysis, Normal pressure hydrocephalus. with MANAGER WATER shunt, Hypertension , Hepatitis C, Hypotension, Clinical Indicators: Present with history of UTI treated outpatient on Cipro. Patient report he's been increasingly confused. He appears weak, he answer simple questions. Vital signs: 99/50 54 18 97.6 Labs: WBC 8.5, BUN 45, CR 7.90, UA: Large Leukocyte Esterase, WBC >180, Chest X Ray: No acute process seen CT Brain: No acute intracranial hemorrhage or midline shift. Stable age related cerebral atrophy, small vessel ischemic changes with left-sided MANAGER WATER shunt catheter stable in position. Treatment: Neuro checks per protocol Ceftriaxone IV DC Mirapex In your professional opinion, please clarify the etiology of the altered mental status, if known. Encephalopathy (specify Type: Metabolic, Toxic (specify if due to drugs, infection or other), and Underlying Medical Illness) Other condition (please specify) Unable to determine Please continue to document in your progress notes and discharge summary in order to capture severity of illness and risk of mortality. Include clinical findings that support your diagnosis. MTDD
== END 2018-01-17 15:42 | disposition home or self-care (01) | DRG 689 ==
LOC: EC 11:59 → 4MS4W 15:06
PROVIDERS: ADMIT Hospitalist; ATTEND Hospitalist
DX: N30.90 Cystitis, unspecified without hematuria (principal); N18.6 End stage renal disease; E44.1 Mild protein-calorie malnutrition; G91.2 (Idiopathic) normal pressure hydrocephalus; I12.0 Hypertensive chronic kidney disease with stage 5 chronic kidney disease or end stage renal disease; N25.81 Secondary hyperparathyroidism of renal origin; E03.9 Hypothyroidism, unspecified; G20 Parkinson's disease; Z98.2 Presence of cerebrospinal fluid drainage device; I95.89 Other hypotension; J84.112 Idiopathic pulmonary fibrosis; J84.89 Other specified interstitial pulmonary diseases; K21.9 Gastro-esophageal reflux disease without esophagitis; M15.9 Polyosteoarthritis, unspecified; Z79.899 Other long term (current) drug therapy; Z82.0 Family history of epilepsy and other diseases of the nervous system; Z82.49 Family history of ischemic heart disease and other diseases of the circulatory system; Z86.19 Personal history of other infectious and parasitic diseases; Z98.42 Cataract extraction status, left eye; Z98.41 Cataract extraction status, right eye; Z96.1 Presence of intraocular lens; Z96.653 Presence of artificial knee joint, bilateral; Z99.2 Dependence on renal dialysis; Z79.890 Hormone replacement therapy; Z88.0 Allergy status to penicillin; Z88.2 Allergy status to sulfonamides; R41.0 Disorientation, unspecified; T39.315S Adverse effect of propionic acid derivatives, sequela
CPT/HCPCS: 36415; 70450; 70551; 71046; 74018; 74176; 80053; 80061; 81001; 82140; 82550; 82553; 83090; 83605; 84100; 84484; 85025; 85610; 85730; 87040; 87070; 87086; 87205; 89050; 93005; 93880; 95819; 96361; 96374; 99285